=== PATIENT | male | born 1960 | race Caucasian/White ===

== ENCOUNTER 2019-05-23 23:27 | Emergency (ER) | payer MEDICARE, MEDICAID, SELFPAY ==
--- NOTE | ~2019-05-23 | CT_ITS ---
EXAMINATION: CT brain wo con DATE: 05/24/2019 00:30 INDICATION: Head injury. TECHNIQUE: Computed tomography (CT) of the head was performed without intravenous contrast. The mA wa s adjusted according to patient size. Iterative reconstruction technique was employed. The dose-lengt h product was 681.00 mGy-cm. COMPARISON: None FINDINGS: There are scattered areas of low attenuation in the cerebral white matter. Superficial to t he left frontal lobe, there is a 4 mm subdural hematoma versus dural thickening that is hypodense to ryan matter. There is no acute infarct or abnormal intracranial mass lesion. The ventricles are satinder l in size. There is mild mucosal thickening in the paranasal sinuses. The orbits are normal. The mast oid air cells are normal. IMPRESSION: 1. Small subacute subdural hematoma versus dural thickening superficial to left frontal lobe. Dr. Wilman Pimentel discussed this result with Rolando Wilson on 05/24/19 at 12:52 AM. 2. Moderate nonspecific cerebral white matter disease, which likely represents chronic small vessel i schemic disease. Reviewed, dictated and finalized at location A. EL KILN REPAIRER IMPRESSION: 1. Small subacute subdural hematoma versus dural thickening superficial to left frontal lobe. Dr. Noel Pimentel discussed this result with Rolando Wilson on 04/29 11/14 at 12:52 AM. 2. Moderate nonspecific cerebral white matter disease, which likely represents chronic small vessel ischemic disease.
--- NOTE | ~2019-05-23 | XR_ITS ---
EXAMINATION: XR ankle LT min 3V DATE: 05/24/2019 00:28 INDICATION: Left ankle pain, initial encounter TECHNIQUE: Anteroposterior, lateral, mortise, and additional oblique view of the ankle were obtained. COMPARISON: None. FINDINGS: There is an acute, traumatic, closed, oblique, nondisplaced fracture of the medial malleolu s. Soft tissue swelling surrounds the fracture. No additional acute osseous abnormality is identified . Bone alignment is normal. A plantar calcaneal enthesophyte is noted. IMPRESSION: 1. Acute fracture of the medial malleolus. Reviewed, dictated and finalized at location A. GHT ASSOCIATE
--- NOTE | ~2019-05-23 | XR_ITS ---
EXAMINATION: XR foot LT min 3V DATE: 05/24/2019 00:29 INDICATION: Left foot pain TECHNIQUE: Dorsoplantar, lateral, and oblique views of the left foot were obtained. COMPARISON: None. FINDINGS: There is no acute fracture, dislocation, or subluxation of the foot. Bone alignment is norm al. There is ankle soft tissue swelling. IMPRESSION: 1. No foot fracture. Reviewed, dictated and finalized at location A. MBLY LINE WORKER IMPRESSION: 1. No foot fracture.
[2019-05-23 23:30] VITALS: BP 122/71; PULSE 77; RESP 20; TEMP 36.9; O2SAT 98
--- NOTE | 2019-05-23 23:41 | ED.LOWEXIN ---
HPI - Extremity Injury (Lower) General Chief Complaint: Extremity Injury, Lower Stated Complaint: PAIN History of Present Illness HPI Narrative: 59 y.o. male alcoholic with liver cirrhosis who tripped and fell at home onto carpet over concrete floor. He landed on his back hitting the back of his head. He complains of immediate left ankle and foot pain. He denies head pain/LOC/ nausea/vomiting. There is pain with attempted weight bearing. Pt states he has poor balance which impairs his ability to use crutches. He has drank daily for years, today he had #8 beers. Pt. states 2 weeks ago he tripped and fell hitting hid left forehead which subsequently swelled. He does not know if he lost consciousness. Since then he's had daily frontal headaches and tenderness in the left cheek and forehead region. He has also had some blurred vision when both eyes are open, but not in each eye individually. Related Data Home Medications Medication Instructions Recorded Confirmed albuterol sulfate 90 mcg INHALATION PRN PRN 05/24/19 05/24/19 allopurinol 100 mg PO DAILY 05/24/19 05/24/19 amlodipine 10 mg PO DAILY 05/24/19 05/24/19 atenolol 100 mg PO DAILY 05/24/19 05/24/19 brimonidine [Alphagan P] 1 drp OPHTHALMIC (EYE) DAILY 05/24/19 05/24/19 finasteride 5 mg PO DAILY 05/24/19 05/24/19 isosorbide mononitrate 30 mg PO DAILY 05/24/19 05/24/19 nitroglycerin 0.4 mg SUBLINGUAL PRN 05/24/19 05/24/19 Allergies Allergy/AdvReac Type Severity Reaction Status Date / Time bee venom protein (honey bee) AdvReac Anaphylaxis Verified 05/23/19 23:54 Review of Systems Constitutional: Constitutional: Reports body ache(s), Denies fever(s) and Denies headache(s) Eyes: Eyes: Denies blurry vision and Denies diplopia ENT: Denies vertigo and Denies dizziness Cardiovascular: Cardiovascular: Denies chest pain and Denies leg edema Gastrointestinal: Comments: chronic chest congestion, cough productive of large quantities of clear sputum daily for over a year. Genitourinary: Genitourinary: Denies dysuria Musculoskeletal: Musculoskeletal: Reports back pain (chronic, related to ankylosing spondylitis ) Hematologic/Lymphatic: Comments: Since being on Eliquis he bruises easily. [facility] Past Medical History Medical History (Updated 05/24/19 @ 01:39 by Francesco Zelaya MD) Alcohol abuse Ankylosing spondylitis Atrial fibrillation CAD (coronary artery disease) Cirrhosis COPD (chronic obstructive pulmonary disease) Hypertension Surgical History Surgical History Hx of CABG Family History Family History Father Family history of chronic obstructive pulmonary disease, Onset Age: 80 Family history of congestive heart failure Mother Family history of congestive heart failure, Onset Age: 82 Social History Social History (Updated 05/24/19 @ 01:49 by Francesco Zelaya MD) Social History: Lives at home by himself Smoking status: Former smoker Exam Narrative: Exam Narrative: Alert and oriented. Minor slurring of speech. Grimaces with ankle pain when he attempts to bear weight. Const: General: cooperative, no acute distress and alert Nutritional Appearance: other (abdominal distension) Orientation/consciousness: patient oriented x3 Limitations: no limitations HENMT: Head: normal to inspection, no Saenz's sign, no hematomas, no lacerations, no raccoon eyes and no scalp tenderness General nose exam: No nasal discharge present Face and sinus: normal facial exam and other (left frontal and maxillary tenderness. ) Mouth: Yes Normal oral and palatal mucosa present, Yes oropharynx normal and Yes moist mucous membranes Throat: posterior oropharynx normal Eyes: General: appearance normal, both eyes and all related structures (Visual acuity OS = 20/40, OD= 20/30, OU = 20/25) Alignment and Position: alignment normal Eyelids: eyelids normal P
[2019-05-24 00:50] VITALS: BP 131/68; PULSE 74; RESP 18; O2SAT 98
[2019-05-24 01:30] VITALS: BP 122/73; PULSE 74; RESP 18; O2SAT 97
--- NOTE | 2019-05-24 01:42 | PC.NURSE ---
CALL TO [facility] FOR TRANSFER
--- NOTE | 2019-05-24 02:11 | PC.NURSE ---
ERP SPEAKING WITH DR CERVANTES FROM [facility].
[2019-05-24 02:20] VITALS: BP 120/78; PULSE 75; RESP 20; TEMP 37.1; O2SAT 97
--- NOTE | 2019-05-24 02:25 | PC.NURSE ---
[facility] UNAVAILABLE FOR TRANSFER . CALL TO [facility].
--- NOTE | 2019-05-24 02:53 | PC.NURSE ---
PT LOADED TO EMS COT. NOTED WHEEZING. PT STATES I DO THAT ALL THE TIME, DONT WORRY ABOUT IT. PT ALERT AND STABLE AT DEPARTURE FROM FACILITY.
--- NOTE | 2019-05-24 09:10 | PC.NURSE ---
received call from dr diaz, radiology. he stated there was a discrepancy with foot xray. stated there is an acute fracture. call to [facility] er and spoke with er charge nurse MIGUEL Hirsch. she stated xray was repeated and was negative for fracture. explained to her of reported discrepancy . stated she would tell the ER doctor.
== END 2019-05-24 02:55 | disposition short-term general hospital (02) ==
PROVIDERS: Emergency Provider Family Medicine; PCP Internal Medicine
DX: S93.492A Sprain of other ligament of left ankle, initial encounter (principal); W19.XXXA Unspecified fall, initial encounter; F10.10 Alcohol abuse, uncomplicated; I48.91 Unspecified atrial fibrillation; I25.10 Atherosclerotic heart disease of native coronary artery without angina pectoris; J44.9 Chronic obstructive pulmonary disease, unspecified; I10 Essential (primary) hypertension
CPT/HCPCS: 70450; 73610; 73630; 99283; 99285; L4350

== ENCOUNTER 2020-03-03 08:57 | Outpatient (CLI) | payer MEDICARE, MEDICAID, SELFPAY ==
--- NOTE | ~2020-03-03 | US_ITS ---
EXAMINATION: US right upper quadrant EXAM DATE: 03/03/2020 09:26 INDICATION: Cirrhosis. TECHNIQUE: Multiple grayscale and Doppler images of the abdomen right upper quadrant were obtained (b y a technologist who performed the scan) and subsequently reviewed. Comparison is made to prior exami nation from 01/11/2019. FINDINGS: The pancreatic head and body are normal in appearance. The pancreatic tail is not visualized. There is echogenic liver parenchyma, hepatic steatosis. Mild liver surface undulations without jorge nodul arity. There are no focal liver lesions identified. There is no evidence of intrahepatic biliary d uct dilation. Portal venous flow was seen in the hepatopedal, normal direction and has normal Dopple r waveform. No right-sided hydronephrosis. Common bile duct measures 4 mm, which is normal. The gallbladder wall is normal in thickness, with ex pected amount of distention. No sonographic evidence of pericholecystic fluid. There is no cholelit hiases. Technologist performing exam reports patient did not demonstrate sonographic Plasencia's sign. Please note that this sign is less reliable in patients who have received pain medication. IMPRESSION: Hepatic steatosis. Reviewed, dictated and finalized at location G. ER IMPRESSION: Hepatic steatosis.
--- NOTE | ~2020-03-03 | CT_ITS ---
EXAMINATION: CT lung screening EXAM DATE: 03/03/2020 09:34 INDICATION: Personal history of nicotine dependence. TECHNIQUE: Spiral low dose CT of the chest without contrast. Axial, coronal and sagittal images were reviewed. The dose-length product (DLP) for this examination was 125.89 mGy-cm. The exposure was t ailored according to patient size (auto mA exposure control), and iterative reconstruction (ASIR) was used as additional dose reduction technique. There is no prior study for comparison. FINDINGS: Several left upper lobe calcified granulomas. No suspicious pulmonary nodules or opacities . There is mild emphysema and hyperinflation. Tracheobronchial tree is patent. There is no mediast inal, hilar or axillary lymphadenopathy. There are no pleural or pericardial effusions. There is no pneumothorax. Heart normal in size. There are sternotomy wires, and cardiac/coronary surgical changes. Correlate with prior history. There is hepatic steatosis. There is mild thoracic spondylosi s without osteoblastic or osteolytic lesions identified. There are old right mid rib fractures. IMPRESSION: Lung-RADS category 1, negative (<1%chance of malignancy); recommend continued LDCT screen ing in 1 year. > Reviewed, dictated and finalized at location G. E ECONOMIST IMPRESSION: Lung-RADS category 1, negative (<1%chance of malignancy); recommend continued LDCT screening in 1 year. >
== END 2020-03-03 08:58 | disposition home or self-care (01) ==
PROVIDERS: PCP Internal Medicine; Visit Provider Internal Medicine
DX: Z12.2 Encounter for screening for malignant neoplasm of respiratory organs (principal); Z87.891 Personal history of nicotine dependence; K74.60 Unspecified cirrhosis of liver
CPT/HCPCS: 76705; G0297

== ENCOUNTER 2021-01-31 08:48 | Outpatient (RCR) | payer MEDICARE, OTHER, SELFPAY ==
--- NOTE | 2021-01-31 10:12 | PTOPEVAL ---
Thank you for referring Tobias Leslie to [facility].? The patient is scheduled to be seen for therapy? ____x/week for ___ weeks. Please review, sign, date and return this plan of care SHYLA. I agree with and certify that the following plan of care is medically necessary. Referring Physician Date Admitting Provider: Attending Provider: Consuelo Villareal MD Referring Provider: *PT Outpatient Evaluation Start: 01/31/21 08:47 Freq: Status: Active Protocol: Document 01/31/21 08:48 JSCOOTER (Rec: 01/31/21 10:07 MIHIR [id number]) Therapy Assessment Status Assessment Status Assessment Status Evaluation Outpatient Past Medical History Cardiovascular History Hx Atrial Fibrillation Yes Hx Cardiac Arrhythmia Yes Hx Cardiac Catheterization Yes Hx Cardiac Surgery Yes: 3 WAY BYPASS Hx Chest Pain Yes Hx Coronary Artery Bypass Graft Yes Hx Hypercholesterolemia Yes Hx Hypertension Yes Respiratory History Hx Chronic Obstructive Pulmonary Disease Yes (COPD) Gastrointestinal History Hx Cirrhosis Yes: CHRONIC ALCOHOLIC Musculoskeletal History Hx Back Injury Yes Hx Back Pain Yes Hx Degenerative Disk Disease Yes Hx Gout Yes Hx Other Musculoskeletal Disorders Yes: ANKYLOSING SPINDYLITIS Other History Hx Other Medical Conditions Yes: HISTOPLASMOSIS Evaluation Information Problem Diagnosis generalized weakness Onset 01/30/21 Subjective Information patient reports he is coming Query Text:As Reported By Patient/ to therapy to seek evaluation Family for a power wheelchair. he reports he struggles with falls and his legs being unable to support him. patient reports he bangs off alejandra frequently at home. he reports his legs shake really bad when he is up and walking. he reports his breathing is poor as well. he reports he is on no supplemental oxygen at home . he reports he is the process of setting up home care assist for laundry, cleaning, cooking, and assist with other daily activities. he reports he has been dissabled since 2006 for his heart and back issues. he reports he has
--- NOTE | 2021-01-31 10:17 | PCPTNOTE ---
No Care Plan initiated due to patient being discharged today.
== END 2021-01-31 11:02 | disposition home or self-care (01) ==
LOC: CHSPT 08:48
PROVIDERS: PCP Internal Medicine; Visit Provider Internal Medicine
DX: R53.1 Weakness (principal)
CPT/HCPCS: 97162

== ENCOUNTER 2021-02-14 09:39 | Outpatient (CLI) | payer OTHER, SELFPAY ==
--- NOTE | ~2021-02-14 | MR_ITS ---
EXAMINATION: MR thoracic spine wo con DATE: 02/14/2021 11:32 INDICATION: Ankylosing spondylitis of unspecified sites in spine. TECHNIQUE: Magnetic resonance imaging (MRI) of the thoracic spine was performed without intravenous c ontrast. Sagittal localizer T1-weighted FSE of the cervical spine was obtained. Thoracic spine sequen kamila included sagittal T2-weighted FSE, sagittal T1-weighted FSE, sagittal T2-weighted FS FSE, and axi al T2-weighted FSE. COMPARISON: Thoracic spine MRI 04/09/2014, chest CT 03/03/2020 FINDINGS: There is 7 degrees levocurvature of cervicothoracic spine. Vertebral body heights are satinder l. There is mildly decreased disc height at T7-T8. At T3-T4, there is a right central and foraminal z one protrusion. There is multilevel facet joint osteoarthritis, severe on the right at T5-T6 and T10- T11 and on the left at T2-T3, T5-T6, and T7-T8. There is mild right neural foraminal stenosis at T3-T 4 and T9-T10 and mild left neural foraminal stenosis at T2-T3. The spinal cord signal intensity is no rmal. IMPRESSION: 1. Mild thoracic spondylosis, stable from 04/09/2014. Reviewed, dictated and finalized at location A.
--- NOTE | ~2021-02-14 | MR_ITS ---
EXAMINATION: MR cervical spine wo con DATE: 02/14/2021 11:32 INDICATION: Ankylosing spondylitis of unspecified sites in spine. TECHNIQUE: Magnetic resonance imaging (MRI) of the cervical spine was performed without intravenous c ontrast. Sequences included sagittal T2-weighted FSE, sagittal T2-weighted FS FSE, sagittal T1-weight ed FSE, axial MERGE, and axial T2-weighted FSE. COMPARISON: None FINDINGS: There is 7 degrees levocurvature of cervicothoracic spine. Vertebral body heights are satinder l. There is mildly decreased disc height at C5-C6 and C6-C7. The spinal cord signal intensity is norm al. The following disc levels are specifically discussed: C2-C3: The disc does not extend beyond the endplate margin. There is moderate right and mild left unc overtebral joint osteoarthritis. There is severe right and moderate left facet joint osteoarthritis. There is mild right neural foraminal stenosis. There is no central canal stenosis. C3-C4: There is a central extrusion. There is severe right and mild left uncovertebral joint osteoart hritis. There is severe bilateral facet joint osteoarthritis. There is mild bilateral neural foramina l stenosis. There is mild central canal stenosis. C4-C5: The disc is bulging. There is mild bilateral uncovertebral joint osteoarthritis. There is michelle re right and moderate left facet joint osteoarthritis. There is mild bilateral neural foraminal steno sis. There is mild central canal stenosis. C5-C6: The disc is bulging. There is moderate bilateral uncovertebral joint osteoarthritis. There is severe bilateral facet joint osteoarthritis. There is moderate bilateral neural foraminal stenosis. T here is mild central canal stenosis. C6-C7: The disc is bulging. There is mild bilateral uncovertebral joint osteoarthritis. There is michelle re right and moderate left facet joint osteoarthritis. There is mild bilateral neural foraminal steno sis. There is mild central canal stenosis. C7-T1: The disc does not extend beyond the endplate margin. There is no uncovertebral joint osteoarth ritis. There is severe bilateral facet joint osteoarthritis. There is mild bilateral neural foraminal stenosis. There is no central canal stenosis. IMPRESSION: 1. Moderate cervical spondylosis. Reviewed, dictated and finalized at location A.
--- NOTE | ~2021-02-14 | MR_ITS ---
EXAMINATION: MR lumbar spine wo con DATE: 02/14/2021 11:31 INDICATION: Ankylosing spondylitis of unspecified sites in spine. Mid back pain. TECHNIQUE: Magnetic resonance imaging (MRI) of the lumbar spine was performed without intravenous con trast. Sequences included sagittal T2-weighted FSE, sagittal T2-weighted FS FSE, sagittal T1-weighted FSE, and axial T2-weighted FSE. COMPARISON: None FINDINGS: There is a moderate volume of ascites. Bone alignment is normal. Vertebral body heights are normal. There is mildly decreased disc height at L4-L5. The distal spinal cord signal intensity is n ormal. The conus medullaris is at L1. The following disc levels are specifically discussed: L1-L2: The disc does not extend beyond the endplate margin. There is mild bilateral facet joint osteo arthritis. There is no neural foraminal stenosis. There is no central canal stenosis. L2-L3: The disc does not extend beyond the endplate margin. There is severe bilateral facet joint ost eoarthritis. There is no neural foraminal stenosis. There is no central canal stenosis. L3-L4: The disc does not extend beyond the endplate margin. There is severe bilateral facet joint ost eoarthritis. There is no neural foraminal stenosis. There is no central canal stenosis. L4-L5: The disc is mildly bulging. There is severe bilateral facet joint osteoarthritis. There is mil d bilateral neural foraminal stenosis. There is no central canal stenosis. L5-S1: There is a central protrusion with annular fissure. There is severe bilateral facet joint oste oarthritis. There is mild left neural foraminal stenosis. There is mild central canal stenosis. IMPRESSION: 1. Mild lumbar spondylosis. 2. Moderate volume of ascites. Reviewed, dictated and finalized at location A.
== END 2021-02-14 09:40 | disposition home or self-care (01) ==
LOC: CHSIMG 09:44
PROVIDERS: PCP Internal Medicine; Visit Provider Internal Medicine
DX: M45.9 Ankylosing spondylitis of unspecified sites in spine (principal)
CPT/HCPCS: 72141; 72146; 72148

== ENCOUNTER 2021-04-11 14:04 | Outpatient (CLI) | payer OTHER, SELFPAY ==
--- NOTE | ~2021-04-11 | XR_ITS ---
EXAMINATION: XR chest 2V EXAM DATE: 04/11/2021 14:58 INDICATION: Cirrhosis liver w/ ascites, smoker, chest surg '07. TECHNIQUE: Frontal and lateral projections of the chest obtained and reviewed. Comparison is made to prior examination from 10/03/2017. FINDINGS: Sternotomy wires are present without findings to suggest sternal dehiscence. The lungs are clear. There are no pleural effusions. The cardiomediastinal silhouette is within normal limits. There is no pneumothorax suspected. The bones and soft tissues are unremarkable. IMPRESSION: No acute cardiopulmonary findings. Reviewed, dictated and finalized at location B. RISK PARAPROFESSIONAL
--- NOTE | ~2021-04-11 | US_ITS ---
EXAMINATION: US abdomen complete EXAM DATE: 04/11/2021 14:43 INDICATION: Alcoholic cirrhosis of liver with ascites. TECHNIQUE: Multiple grayscale and Doppler images of the complete abdomen were obtained (by a technolo gist who performed the scan) and subsequently reviewed. Comparison is made to prior examination from 03/03/2020. FINDINGS: The abdominal aorta is normal in caliber. Visualized portion IVC is patent. The pancreatic head a nd body are normal in appearance. The pancreatic tail is not visualized. Nodular liver contour consistent with cirrhosis. There is moderate amount of perihepatic ascites. Tor ng the anterior aspect of the peritoneum there is echogenic soft tissue region measuring 2.5 cm in ma ximal thickness by 9.6 cm in diameter with irregular shape surface. Could be omentum. Peritoneal carc inomatosis would be expected to have similar appearing echogenicity elsewhere and that is not demonst rated. There are no focal liver lesions identified. There is no evidence of intrahepatic biliary du ct dilation. Portal venous flow was seen in the hepatopedal, normal direction and has normal Doppler waveform. Common bile duct measures 5 mm, which is normal. The gallbladder wall is normal in thickness, with ex pected amount of distention. No sonographic evidence of pericholecystic fluid. There is no cholelit hiases. Technologist performing exam reports patient did not demonstrate sonographic Plasencia's sign. Please note that this sign is less reliable in patients who have received pain medication. Right kidney: There is normal contour and echogenicity. It measures 9.7 x 9.5 x 3.6 centimeters. T here are no focal renal lesions identified. There is no hydronephrosis. Left kidney: There is normal contour and echogenicity. It measures 9.4 x 5.2 x 5.5 centimeters. Th ere are no focal renal lesions identified. There is no hydronephrosis. The spleen measures 9 centimeters and is morphologically normal. IMPRESSION: 1. Cirrhosis. Moderate amount of ascites. 2. Echogenic nonspecific soft tissue along anterior abdominal wall, could be omentum but other mass not excludable; consider CT scanning for further evaluation. Reviewed, dictated and finalized at location B. D COUNSEL IMPRESSION: 1. Cirrhosis. Moderate amount of ascites. 2. Echogenic nonspecific soft tissue along anterior abdominal wall, could be o mentum but other mass not excludable; consider CT scanning for further evaluati on.
== END 2021-04-11 14:05 | disposition home or self-care (01) ==
LOC: CHSIMG 14:09
PROVIDERS: PCP Internal Medicine; Visit Provider Internal Medicine
DX: K70.31 Alcoholic cirrhosis of liver with ascites (principal)
CPT/HCPCS: 71046; 76700

== ENCOUNTER 2021-04-13 07:09 | Outpatient (CLI) | payer OTHER, SELFPAY ==
--- NOTE | ~2021-04-13 | CT_ITS ---
EXAMINATION: CT abdomen pelvis w con DATE: 04/13/2021 08:21 INDICATION: Peritoneal mass. TECHNIQUE: Computed tomography (CT) of the abdomen and pelvis was performed with 100 mL Omnipaque 350 intravenous contrast. Automated exposure control and iterative reconstruction technique were employe d. The dose-length product was 1020.17 mGy-cm. COMPARISON: Abdomen ultrasound 04/11/2021 FINDINGS: The visualized portions of the lung bases demonstrate mild atelectasis. There is a trace le ft pleural effusion. The heart size is normal. There are coronary artery calcifications. No pericardi al effusion. There is a small sliding hiatal hernia. Paraesophageal varices are noted. The liver demo nstrates a nodular surface contour, consistent with cirrhosis. The gallbladder is normal. Calcificati ons in the spleen are consistent with old granulomatous disease. The pancreas and adrenal glands are normal. There is cortical thinning of the kidneys. There is a 5 mm cyst in left kidney. There is mode rate stenosis of proximal left superficial femoral artery. There is diverticulosis of the colon witho ut evidence of diverticulitis. The appendix is normal. There are no dilated loops of bowel. There is a large volume of ascites. There is edema in the greater omentum. Median sternotomy wires are noted. There is mild thoracolumbar spondylosis. IMPRESSION: 1. Cirrhosis of the liver with portal venous hypertension. 2. Large volume of ascites. No abnormal peritoneal mass. 3. Moderate stenosis of proximal left superficial femoral artery. Reviewed, dictated and finalized at location A. KE PLANNING APPLICATIONS
[2021-04-13 07:36] LABS: Estimated Glomerular Filt Rate > 60
== END 2021-04-13 07:10 | disposition home or self-care (01) ==
LOC: CHSIMG 07:10
PROVIDERS: PCP Internal Medicine; Visit Provider Internal Medicine
DX: R19.09 Other intra-abdominal and pelvic swelling, mass and lump (principal)
CPT/HCPCS: 74177; Q9967

== ENCOUNTER 2021-04-17 09:14 | Outpatient (CLI) | payer OTHER, SELFPAY ==
[2021-04-17 09:27] LABS: Basophils Absolute Auto 0.03 K/mm3 (0.00-0.10); Basophils Percent Auto 0.4 % (0.0-1.0); Eosinophils Absolute Auto 0.02 K/mm3 (0.02-0.50); Eosinophils Percent Auto 0.3 % (1.0-6.0); Hemoglobin 12.6 g/dL (14.0-18.0); Immature Granulocyte Absolute 0.02 K/mm3 (0.00-0.00); Immature Granulocyte Percent A 0.3 % (0.0-0.0); Lymphocytes Absolute Auto 0.99 K/mm3 (1.10-4.50); Mean Corpuscular Hemoglobin 36.3 pg (27.0-31.0); Mean Corpuscular Volume 103.7 fL (78.0-102.0); Mean Platelet Volume 9.5 fl (8.7-11.0); Monocytes Absolute Auto 0.89 K/mm3 (0.10-0.90); Monocytes Percent Auto 11.7 % (2.0-11.0); Neutrophils Absolute Auto 5.6 K/mm3 (1.7-7.2); Neutrophils Percent Auto 74.3 % (50.0-70.0); Platelet Count Result 129 K/mm3 (150-420); Red Blood Count 3.47 M/mm3 (4.70-6.10); Red Cell Distribution Width 14.4 % (11.6-14.4); White Blood Count 7.6 K/mm3 (4.8-10.8)
[2021-04-17 09:45] LABS: INR 1.6; Prothrombin Time 16.7 Seconds (9.50-12.10)
[2021-04-17 10:00] LABS: Alanine Aminotransferase 10 U/L (16-63); Albumin Level 2.2 g/dL (3.4-5.0); Alkaline Phosphatase 59 U/L (46-116); Ammonia 33 umol/L (11-32); Anion Gap 8 mmol/L (8-16); Aspartate Amino Transferase 24 U/L (15-37); Bilirubin,Total 1.8 mg/dL (0.00-1.00); Blood Urea Nitrogen 11 mg/dL (7-18); Calcium 8.2 mg/dL (8.5-10.1); Carbon Dioxide 28 mmol/L (21-32); Chloride 96 mmol/L (98-108); Estimated Glomerular Filt Rate 49; Glucose 111 mg/dL (70-99); Osmolality Calculated 274 mOsm/kg (285-295); Potassium 3.4 mmol/L (3.5-5.1); Sodium 132 mmol/L (136-145); Total Protein 6.8 g/dL (6.4-8.2)
== END 2021-04-17 09:15 | disposition home or self-care (01) ==
LOC: CHSLAB 09:15
PROVIDERS: PCP Internal Medicine; Visit Provider Internal Medicine
DX: K70.31 Alcoholic cirrhosis of liver with ascites (principal)
CPT/HCPCS: 36415; 80053; 82140; 85025; 85610

== ENCOUNTER 2021-08-28 07:42 | Outpatient (CLI) | payer MEDICARE, MEDICAID, SELFPAY ==
--- NOTE | ~2021-08-28 | US_ITS ---
EXAMINATION: US paracentesis abd w/image DATE: 08/28/2021 09:33 INDICATION: Ascites. TECHNIQUE: The procedure and its risks, benefits, and alternatives were discussed with the patient. P otential risks discussed included bleeding and infection. The skin was prepped and draped in sterile fashion. 1% lidocaine was used for local anesthesia. Under ultrasound guidance, a 5 Fr catheter with trochar was advanced into the ascites in the right lower quadrant. Fluid was aspirated. The catheter was removed, and a dressing was applied. There were no immediate complications. FINDINGS: Ultrasound images demonstrate ascites and the catheter within the fluid. IMPRESSION: 1. Successful ultrasound-guided paracentesis yielding 5000 mL of clear, yellow fluid. Reviewed, dictated and finalized at location B.
[2021-08-28 08:12] LABS: INR 1.3; Prothrombin Time 13.3 Seconds (9.50-12.10)
== END 2021-08-28 07:43 | disposition home or self-care (01) ==
LOC: CHSIMG 07:46
PROVIDERS: PCP Internal Medicine; Visit Provider Internal Medicine Gastroenterology
DX: R18.8 Other ascites (principal); K74.60 Unspecified cirrhosis of liver
CPT/HCPCS: 36415; 49083; 85610

== ENCOUNTER 2021-09-21 11:16 | Outpatient (CLI) | payer MEDICARE, MEDICAID, SELFPAY ==
--- NOTE | ~2021-09-21 | XR_ITS ---
XR chest 2V DATE: 09/21/2021 11:44 INDICATION: Cough. Upper respiratory infection. TECHNIQUE: PA and lateral views COMPARISON: 04/11/2021 2 view chest FINDINGS: Status post sternotomy and probable coronary artery bypass graft surgery. Normal heart size . No hilar or mediastinal enlargement. The lungs are clear of infiltrate or consolidation. No pleural effusion or pulmonary vascular congest ion or pneumothorax. Diffuse osteopenia. IMPRESSION: Status post sternotomy No active cardiac pulmonary disease Reviewed, dictated and finalized at location A.
[2021-09-21 12:27] LABS: SARS-CoV-2 RNA PCR Negative (Negative)
== END 2021-09-21 11:17 | disposition home or self-care (01) ==
LOC: CHSLAB 11:19
PROVIDERS: PCP Internal Medicine; Visit Provider Nurse Practitioner Family
DX: J06.9 Acute upper respiratory infection, unspecified (principal); R05.9 Cough, unspecified; J44.9 Chronic obstructive pulmonary disease, unspecified; Z20.822 Contact with and (suspected) exposure to COVID-19
CPT/HCPCS: 71046; C9803; U0003; U0005

== ENCOUNTER 2021-09-21 14:07 | Emergency (ER) | payer MEDICARE, MEDICAID, SELFPAY ==
[2021-09-21] VITALS (24 sets, daily range): BP systolic 115–144; BP diastolic 86–100; PULSE 85; RESP 14–16; O2SAT 83–99
--- NOTE | ~2021-09-21 | CT_ITS ---
EXAMINATION: CT abdomen pelvis wo con DATE: 09/21/2021 15:12 INDICATION: Acute abdominal pain. History of cirrhosis and hernia. TECHNIQUE: Computed tomography (CT) of the abdomen and pelvis was performed without intravenous contr ast. The dose-length product was 329.53 mGy-cm. Automated exposure control and iterative reconstructi on technique were employed. COMPARISON: CT dated 04/13/2021. FINDINGS: Lung bases are unremarkable. Heart size normal. No significant pleural or pericardial effus ion. There is atherosclerosis of the aorta without aneurysm. There is cirrhosis of the liver with mod erate ascites. The spleen, pancreas, adrenal glands and kidneys are unremarkable. Gallbladder is dist ended. There is an umbilical hernia containing small bowel. The bowel outline is difficult to determi ne, although it appears to be dilated within the hernia sac, possibly strangulated. There is fluid in the hernia sac. Colonic diverticulosis there are degenerative changes of the hips and lumbar spine. There is atherosclerosis of the aorta without aneurysm. IMPRESSION: 1. Focally dilated small bowel contained in umbilical hernia sac. Cannot exclude obstruction/strangul ation. 2: Cirrhosis with ascites. Reviewed, dictated and finalized at location A. IMPRESSION: 1. Focally dilated small bowel contained in umbilical hernia sac. Cannot exclud e obstruction/strangulation. 2: Cirrhosis with ascites.
--- NOTE | ~2021-09-21 | US_ITS ---
US scrotum doppler INDICATION: Testicular pain TECHNIQUE: Testicular sonogram utilizing grayscale and color Doppler FINDINGS: The testes are normal in size and appearance. No focal lesions are seen. The right testes measures 2.7 x 2.1 x 1.7 cm centimeters, and the left testis measures 2.7 x 2.7 x 1.5 cm cm. There is normal vascular flow to both testes. The right and left epididymides appear normal. There is no varicocele or hydrocele. IMPRESSION: 1. NORMAL TESTICULAR ULTRASOUND. Reviewed, dictated and finalized at location A.
--- NOTE | 2021-09-21 14:43 | PC.NURSE ---
PT REPORTS PAIN RADIATES INTO TESTICLES, CANNOT GET COMFORTABLE. ERP NOTIFIED, US ORDERED. PT IN US AT THIS TIME.
[2021-09-21] MEDS: ONDANSETRON INJ 4 MG/2 ML VIAL IV PUSH (15:19)
[2021-09-21] MEDS: MORPHINE SULFATE (*CRX) 2 MG/ML INJ IV PUSH ×3 (15:20→18:21)
[2021-09-21] MEDS: PANTOPRAZOLE SODIUM IV 40 MG VIAL IV PUSH (15:20)
[2021-09-21] MEDS: SODIUM CHLORIDE 0.9% IV 500 ML 999 ML IV CONT (15:20)
[2021-09-21 15:21] LABS: Basophils Absolute Auto 0.04 K/mm3 (0.00-0.10); Basophils Percent Auto 0.6 % (0.0-1.0); Eosinophils Absolute Auto 0.01 K/mm3 (0.02-0.50); Eosinophils Percent Auto 0.1 % (1.0-6.0); Hematocrit 31.6 % (40.0-54.0); Hemoglobin 10.5 g/dL (14.0-18.0); Immature Granulocyte Absolute 0.02 K/mm3 (0.00-0.00); Immature Granulocyte Percent A 0.3 % (0.0-0.0); Lymphocytes Absolute Auto 1.41 K/mm3 (1.10-4.50); Mean Corpuscular HGB Conc 33.2 g/dL (32.0-36.0); Mean Corpuscular Hemoglobin 30.7 pg (27.0-31.0); Mean Corpuscular Volume 92.4 fL (78.0-102.0); Mean Platelet Volume 9.3 fl (8.7-11.0); Monocytes Absolute Auto 0.76 K/mm3 (0.10-0.90); Monocytes Percent Auto 10.8 % (2.0-11.0); Neutrophils Absolute Auto 4.8 K/mm3 (1.7-7.2); Neutrophils Percent Auto 68.2 % (50.0-70.0); Platelet Count Result 221 K/mm3 (150-420); Red Blood Count 3.42 M/mm3 (4.70-6.10); Red Cell Distribution Width 15.6 % (11.6-14.4); White Blood Count 7.1 K/mm3 (4.8-10.8)
[2021-09-21 15:48] LABS: Alanine Aminotransferase 10 U/L (16-63); Albumin Level 3.2 g/dL (3.4-5.0); Alkaline Phosphatase 78 U/L (46-116); Anion Gap 8 mmol/L (8-16); Aspartate Amino Transferase 20 U/L (15-37); Bilirubin,Total 0.8 mg/dL (0.00-1.00); Blood Urea Nitrogen 15 mg/dL (7-18); Calcium 9.4 mg/dL (8.5-10.1); Carbon Dioxide 27 mmol/L (21-32); Chloride 97 mmol/L (98-108); Estimated Glomerular Filt Rate 52; Glucose 112 mg/dL (70-99); Lipase 255 U/L (73-393); Osmolality Calculated 275 mOsm/kg (285-295); Potassium 4.1 mmol/L (3.5-5.1); Sodium 132 mmol/L (136-145); Total Protein 8.4 g/dL (6.4-8.2)
[2021-09-21 15:53] LABS: Lactic Acid Reflex 1.3 mmol/L (0.4-2.0)
--- NOTE | 2021-09-21 16:19 | PC.NURSE ---
1177 MACHINE STACKER NADER NOTIFIED AT [facility] FOR NEED OF SURGEON. AWAITING RETURN CALL AT THIS TIME. PT REPORTS PAIN HAS IMPROVED TO 3/10, HOWEVER REMAINS. FAMILY HAS LEFT, HOWEVER ARE TO RETURN. WILL CONTINUE TO MONITOR.
--- NOTE | 2021-09-21 16:26 | ED.ABDPAIN ---
HPI - Abdominal Pain General Chief Complaint: Abdominal Pain Stated Complaint: Abd pain possible hernia Time Seen by Provider: 09/21/21 14:11 Source: patient and RN notes reviewed Mode of arrival: ambulatory Limitations: no limitations History of Present Illness MD elicited complaint: abdominal pain Pertinent past history: other (known umbilical hernia, usually easily reducible) Onset (ago): hour(s) (2) Pain Consistency: constant and colicky Location: periumbilical Severity: moderate Pain scale (0-10): 7 Quality: cramping and aching Radiation: other (left groin to testicle.) Migration to: no migration Exacerbating factors: movement Relieving factors: nothing Related Data Home Medications Medication Instructions Recorded Confirmed albuterol sulfate 90 mcg/actuation 90 mcg inhalation PRN PRN 05/24/19 09/21/21 aerosol inhaler Shortness Of Breath allopurinol 100 mg tablet 100 mg PO DAILY 05/24/19 09/21/21 brimonidine 0.1 % eye drops 1 drp ophthalmic (eye) DAILY 05/24/19 09/21/21 (Alphagan P) finasteride 5 mg tablet 5 mg PO DAILY 05/24/19 09/21/21 nitroglycerin 0.4 mg sublingual 0.4 mg sublingual PRN 05/24/19 09/21/21 tablet albuterol sulfate 90 mcg/actuation 2 puff inhalation PRN PRN Wheezing 09/21/21 09/21/21 aerosol inhaler (Ventolin HFA) fluticasone fur. 100 mcg-umeclid 2 ea inhalation DAILY 09/21/21 09/21/21 62.5 mcg-vilant 25 mcg inhalat.powder (Trelegy Ellipta) lorazepam 1 mg tablet 1 tablet PO PRN PRN ANXIETY 09/21/21 09/21/21 oxycodone 5 mg tablet 1 tablet PO PRN PRN Pain 09/21/21 09/21/21 pantoprazole 40 mg tablet,delayed 1 tablet PO DAILY 09/21/21 09/21/21 release sulfamethoxazole 800 1 tablet PO DAILY 09/21/21 09/21/21 mg-trimethoprim 160 mg tablet Allergies Allergy/AdvReac Type Severity Reaction Status Date / Time bee venom protein (honey bee) AdvReac Anaphylaxis Verified 09/21/21 14:20 Review of Systems Review of Systems: All systems reviewed & are unremarkable except as noted in HPI and below PMFSH Past Medical History Medical History Alcohol abuse Ankylosing spondylitis Arthritis Ascites Asthma Atrial fibrillation CAD (coronary artery disease) Cardiac arrhythmia Cirrhosis COPD (chronic obstructive pulmonary disease) Dyslipidemia Hypertension Tobacco abuse Umbilical hernia with obstruction but no gangrene Surgical History Surgical History History of heart bypass surgery Hx of CABG Family History Family History Father Family history of chronic obstructive pulmonary disease, Onset Age: 80 Family history of congestive heart failure Mother Family history of congestive heart failure, Onset Age: 82 Social History Social History Social History: Lives at home by himself Smoking status: Current every day smoker Tobacco type: cigarettes Second hand tobacco smoke exposure: Yes Alcohol intake: former Substance use: unknown Exam Const: General: ill appearing Nutritional Appearance: thin Orientation/consciousness: patient oriented x3 Other: hearing impairment HENMT: Head: normal to inspection Ears: external ears normal, TM's normal bilaterally and EAC's normal General nose exam: Normal external nose present and Normal nares present Face and sinus: normal facial exam and sinuses nontender Mouth: Yes Normal oral and palatal mucosa present, Yes lip normal and Yes moist mucous membranes Throat: posterior oropharynx normal Eyes: Conjunctivae: conjunctivae normal Pupils: Equal, round and reactive pupils present EOM: EOMs intact bilaterally Neck: Neck: normal visual inspection and no lymphadenopathy Chest: Chest palpation & inspection: normal inspection of the chest Resp: Effort & Inspection: normal respiratory effort A
--- NOTE | 2021-09-21 16:30 | PC.NURSE ---
JESSICA PERALTA PT
--- NOTE | 2021-09-21 16:33 | PC.NURSE ---
PT DOES NOT WANT TO DECIDE ON TRANSFER HOSPITAL UNTIL DAUGHTER ARRIVES, ERP AWARE.
--- NOTE | 2021-09-21 17:31 | PC.NURSE ---
1700 DAUGHTER HAS ARRIVED, DECIDED ON [facility]. AWAITING RETURN CALL AT THIS TIME.
[2021-09-21 17:52] LABS: Add Urine Microscopic? NO; Appearance Urine Clear (Clear); Bilirubin Urine Negative (Negative); Blood Urine Negative (Negative); Color Urine Yellow (Yellow); Glucose Urine UA Negative (Negative); Ketones Urine Negative (Negative); Leukocyte Esterase Ur Negative (Negative); Nitrate Urine Negative (Negative); Protein Urine Negative (Negative); Urobilinogen Urine 0.2 mg/dL (0.2-1.0)
--- NOTE | 2021-09-21 18:12 | PC.NURSE ---
[facility] NOTIFIED FOR NEED OF TRANSFER
== END 2021-09-21 18:37 | disposition short-term general hospital (02) ==
PROVIDERS: Emergency Provider Emergency Medicine; PCP Internal Medicine
DX: K42.0 Umbilical hernia with obstruction, without gangrene (principal); K74.60 Unspecified cirrhosis of liver; J44.9 Chronic obstructive pulmonary disease, unspecified; E78.5 Hyperlipidemia, unspecified; I10 Essential (primary) hypertension; F17.200 Nicotine dependence, unspecified, uncomplicated
CPT/HCPCS: 36415; 71046; 74176; 76870; 80053; 81003; 83605; 83690; 85025; 93976; 96361; 96374; 96375; 96376; 99285; C9113; C9803; J2270; J2405; J7040; U0003; U0005

== ENCOUNTER 2021-11-16 20:01 | Emergency (ER) | payer MEDICARE, MEDICAID, SELFPAY ==
--- NOTE | 2021-11-16 20:20 | ED.ABDPAIN ---
HPI - Abdominal Pain General Chief Complaint: Abdominal Pain Stated Complaint: hernia Source: patient Mode of arrival: ambulatory Limitations: no limitations History of Present Illness MD elicited complaint: abdominal pain Pertinent past history: other (umbilical hernia, cirrhosis) Onset (ago): minute(s) (30) Pain Consistency: constant Location: periumbilical Severity: severe Quality: sharp Radiation: none Migration to: no migration Exacerbating factors: other (palpation) Relieving factors: nothing Associated symptoms: denies other symptoms Related Data Home Medications Medication Instructions Recorded Confirmed albuterol sulfate 90 mcg/actuation 90 mcg inhalation PRN PRN 05/24/19 09/21/21 aerosol inhaler Shortness Of Breath allopurinol 100 mg tablet 100 mg PO DAILY 05/24/19 09/21/21 brimonidine 0.1 % eye drops 1 drp ophthalmic (eye) DAILY 05/24/19 09/21/21 (Alphagan P) finasteride 5 mg tablet 5 mg PO DAILY 05/24/19 09/21/21 nitroglycerin 0.4 mg sublingual 0.4 mg sublingual PRN 05/24/19 09/21/21 tablet albuterol sulfate 90 mcg/actuation 2 puff inhalation PRN PRN Wheezing 09/21/21 09/21/21 aerosol inhaler (Ventolin HFA) fluticasone fur. 100 mcg-umeclid 2 ea inhalation DAILY 09/21/21 09/21/21 62.5 mcg-vilant 25 mcg inhalat.powder (Trelegy Ellipta) lorazepam 1 mg tablet 1 tablet PO PRN PRN ANXIETY 09/21/21 09/21/21 oxycodone 5 mg tablet 1 tablet PO PRN PRN Pain 09/21/21 09/21/21 pantoprazole 40 mg tablet,delayed 1 tablet PO DAILY 09/21/21 09/21/21 release sulfamethoxazole 800 1 tablet PO DAILY 09/21/21 09/21/21 mg-trimethoprim 160 mg tablet Allergies Allergy/AdvReac Type Severity Reaction Status Date / Time bee venom protein (honey bee) AdvReac Anaphylaxis Verified 11/16/21 20:18 Review of Systems Review of Systems: All systems reviewed & are unremarkable except as noted in HPI and below Constitutional: Constitutional: Reports as per HPI and Reports no additional constitutional complaints Eyes: Eyes: Reports as per HPI and Reports no additional eye complaints ENT: Reports system reviewed and no additional complaints, except as documented and Reports as per HPI Cardiovascular: Cardiovascular: Reports as per HPI, Reports no additional cardiovascular complaints and Denies chest pain Respiratory: Respiratory: Reports as per HPI, Reports no additional respiratory complaints and Denies dyspnea Gastrointestinal: Gastrointestinal: Reports as per HPI, Reports no additional gastrointestinal complaints and Reports abdominal pain Comments: has umbilical hernia protruding Genitourinary: Genitourinary: Reports no additional male genitourinary complaints and Reports as per HPI Musculoskeletal: Musculoskeletal: Reports no additional musculoskeletal complaints and Reports as per HPI Integumentary/Breasts: Skin/Breast: Reports system reviewed and no additional complaints, except as docu and Reports as per HPI Neurologic: Reports system reviewed and no additional complaints, except as documented and Reports as per HPI Psychiatric: Psychiatric: Reports no additional psychiatric complaints and Reports as per HPI Endocrine: Endocrine: Reports no additional endocrine complaints and Reports as per HPI Hematologic/Lymphatic: Hematologic/Lymphatic: Reports no additional hematologic/lymphatic complaints and Reports as per HPI Allergic/Immunologic: Allergic/Immunologic: Reports no additional allergic/immunologic complaints and Reports as per HPI [facility] Past Medical History Medical History Alcohol abuse Ankylosing spondylitis Arthritis Ascites Asthma Atrial fibrillation CAD (coronary artery disease) Cardiac arrhythmia Cirrhosis COPD (chronic obstructive pulmonary disease) Dyslipidemia Hypertension Tobacco abuse Umbilical hernia with obstruction but no gangrene Surgical History Surgical History
[2021-11-16 20:21] VITALS: BP 169/111; PULSE 107; RESP 20; TEMP 36.9; O2SAT 98
[2021-11-16 20:32] VITALS: BP 160/94; PULSE 92; RESP 18; O2SAT 98
[2021-11-16 20:44] VITALS: BP 138/94; PULSE 92; RESP 17; TEMP 36.9; O2SAT 99
== END 2021-11-16 20:47 | disposition home or self-care (01) ==
PROVIDERS: Emergency Provider Emergency Medicine; PCP Internal Medicine
DX: K42.9 Umbilical hernia without obstruction or gangrene (principal); I48.91 Unspecified atrial fibrillation; I25.10 Atherosclerotic heart disease of native coronary artery without angina pectoris; J44.9 Chronic obstructive pulmonary disease, unspecified; E78.5 Hyperlipidemia, unspecified; I10 Essential (primary) hypertension; F17.200 Nicotine dependence, unspecified, uncomplicated
CPT/HCPCS: 99281

== ENCOUNTER 2021-11-27 07:07 | Outpatient (CLI) | payer MEDICARE, MEDICAID, SELFPAY ==
--- NOTE | ~2021-11-27 | US_ITS ---
US right upper quadrant INDICATION: Process of the liver PROCEDURE: Realtime right upper abdominal ultrasound. COMPARISON: No prior studies for comparison. FINDINGS: The pancreas is normal without focal mass or pancreatic ductal dilation. There is mildly h eterogeneous liver echotexture without focal mass. There is normal directional flow in the portal ve in. There is gallbladder wall thickening with gallbladder sludge. No definite stones. Common bile duct m easures 3 mm. No sonographic Plasencia's sign. No ascites identified. IMPRESSION: 1: Mildly heterogeneous liver echotexture without focal mass. No ascites. 2: Gallbladder wall thickening with gallbladder sludge. Reviewed, dictated and finalized at location A.
[2021-11-27 07:22] LABS: Hemoglobin 10.7 g/dL (14.0-18.0); Mean Corpuscular HGB Conc 30.6 g/dL (32.0-36.0); Mean Corpuscular Volume 88.4 fL (78.0-102.0); Platelet Count Result 217 K/mm3 (150-420); Red Blood Count 3.96 M/mm3 (4.70-6.10); Red Cell Distribution Width 15.9 % (11.6-14.4); White Blood Count 8.8 K/mm3 (4.8-10.8)
[2021-11-27 07:34] LABS: INR 1.1
[2021-11-27 08:05] LABS: Alanine Aminotransferase 26 U/L (16-63); Albumin Level 3.6 g/dL (3.4-5.0); Alkaline Phosphatase 150 U/L (46-116); Anion Gap 8 mmol/L (8-16); Aspartate Amino Transferase 23 U/L (15-37); Bilirubin,Total 0.3 mg/dL (0.00-1.00); Blood Urea Nitrogen 46 mg/dL (7-18); Calcium 8.9 mg/dL (8.5-10.1); Carbon Dioxide 26 mmol/L (21-32); Chloride 106 mmol/L (98-108); Estimated Glomerular Filt Rate > 60; Glucose 100 mg/dL (70-99); Osmolality Calculated 301 mOsm/kg (285-295); Potassium 4.8 mmol/L (3.5-5.1); Sodium 140 mmol/L (136-145); Total Protein 7.9 g/dL (6.4-8.2)
== END 2021-11-27 07:08 | disposition home or self-care (01) ==
LOC: CHSIMG 07:11
PROVIDERS: PCP Internal Medicine; Visit Provider Internal Medicine Gastroenterology
DX: K74.60 Unspecified cirrhosis of liver (principal); R18.8 Other ascites; I48.91 Unspecified atrial fibrillation
CPT/HCPCS: 36415; 76705; 80053; 85027; 85610

== ENCOUNTER 2021-12-17 14:42 | Outpatient (CLI) | payer MEDICARE, MEDICAID, SELFPAY ==
--- NOTE | 2021-12-17 14:44 | ECG_ITS ---
Measurements Intervals [place] Rate: 88 P: -1 MS: 145 QRS: 79 QRSD: 98 T: 32 QT: 369 QTc: 447 Interpretive Statements SINUS RHYTHM LOW QRS VOLTAGE IN EXTREMITY LEADS BORDERLINE ECG NO PREVIOUS ECG AVAILABLE FOR COMPARISON Electronically Signed On 12-17-2021 16:07:35 CDT by Tyler Verdugo M.D.
== END 2021-12-17 14:43 | disposition home or self-care (01) ==
LOC: CHSCARD 14:44
PROVIDERS: PCP Internal Medicine; Visit Provider Internal Medicine Cardiovascular Disease
DX: I48.91 Unspecified atrial fibrillation (principal)
CPT/HCPCS: 93005

== ENCOUNTER 2021-12-24 11:20 | Outpatient (CLI) | payer MEDICARE, MEDICAID, SELFPAY ==
--- NOTE | 2021-12-24 11:27 | EST_ITS ---
Patient Info Name: Tobias Leslie Age: 61 years : 1960 Gender: Male Ht: 68 in Wt: 157 lbs BSA: 1.85 m2 Exam Date: 12/24/2021 1:01 PM Exam Location: [facility] Patient Status: Outpatient Admit Date: 12/24/2021 Staff Ordering Physician: Walt Briones DO Attending Provider: Walt Briones DO Exam Type: CA stress ruby w NM Summary 1. 1. Negative lexiscan stress test for ischemic ST changes by ECG criteria. 2. 2. Stable hemodynamics throughout the test. 3. 3. Nuclear scan to follow and will be reported separately. Pleae correlate with it. 4. 4. Patient informed of the above results. Protocol: LEXISCAN Stress ECG Details Stage: REST Duration (min): 1 min : 7 sec HR (bpm): 91 SBP (mmHg): 158 DBP (mmHg): 104 Stage: REST Duration (min): 4 min : 23 sec HR (bpm): 79 SBP (mmHg): 158 DBP (mmHg): 104 Stage: STAGE 1 Duration (min): 0 min : 14 sec HR (bpm): 85 SBP (mmHg): 158 DBP (mmHg): 104 Stage: RECOVERY Duration (min): 0 min : 45 sec HR (bpm): 126 SBP (mmHg): 158 DBP (mmHg): 104 Stage: RECOVERY Duration (min): 1 min : 45 sec HR (bpm): 131 SBP (mmHg): 156 DBP (mmHg): 97 Stage: RECOVERY Duration (min): 2 min : 45 sec HR (bpm): 127 SBP (mmHg): 157 DBP (mmHg): 99 Stage: RECOVERY Duration (min): 3 min : 45 sec HR (bpm): 121 SBP (mmHg): 138 DBP (mmHg): 95 Stage: RECOVERY Duration (min): 4 min : 45 sec HR (bpm): 113 SBP (mmHg): 159 DBP (mmHg): 91 Stage: RECOVERY Duration (min): 5 min : 45 sec HR (bpm): 114 SBP (mmHg): 151 DBP (mmHg): 99 Stage: RECOVERY Duration (min): 6 min : 45 sec HR (bpm): 115 SBP (mmHg): 150 DBP (mmHg): 99 Stage: RECOVERY Duration (min): 7 min : 5 sec HR (bpm): 115 SBP (mmHg): 150 DBP (mmHg): 99 Rest HR: 79 bpm Peak HR: 131 bpm Rest Sys BP: 158 mmHg Peak Sys BP: 159 mmHg Max Pred HR: 158 bpm % Max Pred HR: 83 % Target HR: 134 bpm Max RPP: 20,829 bpm*mmHg Termination Reason: Completed protocol Cardiac Symptoms: Shortness of breath, Headache Total Time: 0 min : 14 sec Rest Altman BP: 104 mmHg Peak Altman BP: 91 mmHg Total Dose: 0.4 mg Resting ECG Sinus rhythm. Stress ECG No ST changes. Arrhythmias None. Report Signatures
--- NOTE | 2021-12-24 16:34 | WPDCARIOSTRE ---
Nuclear Stress Test INDICATIONS Indications: Chest pain PROCEDURE Procedure Performed: Myocardial Perf Spect-Multi Procedure: Patient underwent a lexiscan stress test and immediately was injected with 33 mCi of cardiolyte. Multiple tomographic images were obtained. These are of good quality. There is no evidence of decrease perfusion with stress imaging. A separate resting images were obtained after patient was injected with 10.8 mCi of cardiolyte. Multiple tomographic images were obtained. These are of good quality. There is no evidence of decrease perfusion with rest imaging. CONCLUSION Conclusion: 1. Normal myocardial perfusion imaging demonstrating no perfusion defects with stress or rest imaging. 2. No evidence of reversible ischemia. 3. Left ventriculogram demonstrates normal measured ejection fraction of 56% with no wall motion abnormalities. 4. TID score 1.11 is not elevated.
== END 2021-12-24 11:21 | disposition home or self-care (01) ==
LOC: CHSCARD 11:22
PROVIDERS: PCP Internal Medicine; Visit Provider Internal Medicine Cardiovascular Disease
DX: I25.10 Atherosclerotic heart disease of native coronary artery without angina pectoris (principal)
CPT/HCPCS: 78452; 93017; A9502; J2785

== ENCOUNTER 2021-12-28 13:23 | Outpatient (CLI) | payer MEDICARE, MEDICAID, SELFPAY ==
--- NOTE | 2021-12-28 13:30 | ECHO_ITS ---
Patient Info Name: Tobias Leslie Age: 61 years : 1960 Gender: Male Ht: 68 in Wt: 159 lbs BSA: 1.87 m2 HR: 70 bpm BP: 157 / 89 mmHg Heart Rhythm: Sinus Rhythm Technical Quality: Fair Exam Date: 12/28/2021 1:16 PM Exam Location: [facility] [place] Patient Status: Outpatient Admit Date: 12/28/2021 Staff Ordering Physician: Walt Briones DO Wrap Yarn Sorter: Kathie Lara RDCS Attending Provider: Walt Briones DO Referring Physician: Anselmo JOHNSON; Exam Type: CA echo doppler color flow Study Info Indications I25.10 - Atherosclerotic heart disease of nikolai coronary artery without angina pectoris Complete two-dimensional, color flow and Doppler transthoracic echocardiogram is performed. Summary 1. Complete two-dimensional, color flow and Doppler transthoracic echocardiogram is performed. 2. Left ventricular chamber dimension is normal. 3. Ventricular septum is sigmoid shaped. No LVOT obstruction. 4. Left ventricular systolic function is normal, estimated at 60-65%. 5. The left ventricular diastolic function is grade I diastolic dysfunction. 6. E/e' 6 is not elevated. 7. Right ventricular systolic function is mildly reduced and with abnormal TAPE 1.6 cm. 8. Left atrial chamber dimension is mildly enlarged. 9. The mitral valve has mildly calcified annulus. 10. There is mild mitral valve regurgitation. 11. There is mild tricuspid valve regurgitation. 12. No pulmonary hypertension, estimated pulmonary arterial systolic pressure is 33 mmHg. Left Ventricle E/e' 6 is not elevated. Ventricular septum is sigmoid shaped. No LVOT obstruction. Left ventricular chamber dimension is normal. Left ventricular systolic function is normal, estimated at 60-65%. The left ventricular diastolic function is grade I diastolic dysfunction. Right Ventricle Right ventricular systolic function is mildly reduced and with abnormal TAPE 1.6 cm. Right ventricular chamber dimension is normal. Left Atria Left atrial chamber dimension is mildly enlarged. Right Atria Right atrial chamber dimension is normal. Aortic Valve The aortic valve is trileaflet. There is no aortic valve stenosis. There is no aortic valve regurgitation. Pulmonic Valve There is no pulmonic regurgitation. Mitral Valve The mitral valve has mildly calcified annulus. There is no mitral valve stenosis. There is mild mitral valve regurgitation. Tricuspid Valve There is mild tricuspid valve regurgitation. No pulmonary hypertension, estimated pulmonary arterial systolic pressure is 33 mmHg. Pericardium/Pleural There is no pericardial effusion. Inferior Vena Cava Normal inferior vena cava with >50% collapse upon inspiration consistent with normal right atrial pressure, 5 mmHg. Aorta The aortic root size at the sinus of Valsalva is normal. Left Ventricular Outflow Tract Name Value Normal LVOT 2D LVOT Diameter 2.1 cm LVOT Doppler LVOT Peak Velocity 118 cm/s LVOT Peak Gradient 6 mmHg LVOT Mean Gradient 3 mmHg LVOT VTI 23 cm
== END 2021-12-28 13:24 | disposition home or self-care (01) ==
LOC: CHSIMG 13:25
PROVIDERS: PCP Internal Medicine; Visit Provider Internal Medicine Cardiovascular Disease
DX: I25.10 Atherosclerotic heart disease of native coronary artery without angina pectoris (principal)
CPT/HCPCS: 93306

== ENCOUNTER 2022-01-16 17:39 | Emergency (ER) | payer MEDICARE, MEDICAID, SELFPAY ==
--- NOTE | ~2022-01-16 | CT_ITS ---
EXAMINATION: CT abdomen pelvis wo con DATE: 01/16/2022 18:46 INDICATION: abdominal pain TECHNIQUE: Computed tomography (CT) of the abdomen and pelvis was performed without intravenous contr ast. Automated exposure control and iterative reconstruction technique were employed. The dose-length product was 437.81 mGy-cm. COMPARISON: 09/21/2021. FINDINGS: Lower thorax: Mediastinal vascular clips. Dependent atelectasis. Liver: Mild hepatomegaly. Nodular liver border as can be seen with cirrhosis. Biliary/Gallbladder: Distended gallbladder, unchanged, no stone or inflammatory change. No bile duct dilation. Pancreas: No mass or duct dilation. Spleen: Normal. Adrenals:No mass. Kidneys: No mass, stone, or hydronephrosis. Mild perinephric stranding. GI tract: No small or large bowel dilation. Normal appendix. Diverticulosis without diverticulitis. Mesentery/Peritoneum: No ascites, mass, or free air. Retroperitoneum: No mass. Atherosclerotic abdominal aortic and/or arterial calcifications. Pelvis: Bladder distention and wall thickening, likely secondary to outlet compromise. Soft Tissues: Small fat-containing uncomplicated umbilical hernia. Bones: No acute osseous finding. IMPRESSION: No acute abdominopelvic process detected. Reviewed, dictated and finalized at location K.
[2022-01-16 17:43] VITALS: BP 180/102; PULSE 20; RESP 20; TEMP 36.6; O2SAT 97
[2022-01-16 17:48] VITALS: BP 180/102; PULSE 88; RESP 20; TEMP 36.6; O2SAT 97
[2022-01-16 18:14] LABS: Add Urine Microscopic? NO; Appearance Urine Clear (Clear); Bilirubin Urine Negative (Negative); Blood Urine Negative (Negative); Color Urine Light Yellow (Yellow); Glucose Urine UA Negative (Negative); Ketones Urine Negative (Negative); Leukocyte Esterase Ur Negative LEU/UL (Negative); Nitrate Urine Negative (Negative); Protein Urine Negative (Negative); Urobilinogen Urine 0.2 mg/dL (0.2-1.0)
[2022-01-16 18:14] LABS: Basophils Absolute Auto 0.06 K/mm3 (0.00-0.10); Basophils Percent Auto 0.6 % (0.0-1.0); Eosinophils Absolute Auto 0.01 K/mm3 (0.02-0.50); Eosinophils Percent Auto 0.1 % (1.0-6.0); Hematocrit 37.1 % (40.0-54.0); Hemoglobin 11.6 g/dL (14.0-18.0); Immature Granulocyte Absolute 0.03 K/mm3 (0.00-0.00); Immature Granulocyte Percent A 0.3 % (0.0-0.0); Lymphocytes Percent Auto 11.3 % (18.0-42.0); Mean Corpuscular HGB Conc 31.3 g/dL (32.0-36.0); Mean Corpuscular Hemoglobin 26.2 pg (27.0-31.0); Mean Corpuscular Volume 83.7 fL (78.0-102.0); Mean Platelet Volume 8.8 fl (8.7-11.0); Monocytes Absolute Auto 0.78 K/mm3 (0.10-0.90); Monocytes Percent Auto 7.3 % (2.0-11.0); Neutrophils Absolute Auto 8.6 K/mm3 (1.7-7.2); Neutrophils Percent Auto 80.4 % (50.0-70.0); Platelet Count Result 206 K/mm3 (150-420); Red Blood Count 4.43 M/mm3 (4.70-6.10); Red Cell Distribution Width 20.4 % (11.6-14.4); White Blood Count 10.7 K/mm3 (4.8-10.8)
[2022-01-16] MEDS: SODIUM CHLORIDE 0.9% IV 500 ML 999 ML IV CONT (18:15)
[2022-01-16] MEDS: ONDANSETRON INJ 4 MG/2 ML VIAL IV PUSH (18:15)
[2022-01-16 18:29] LABS: Alanine Aminotransferase 18 U/L (16-63); Albumin Level 3.6 g/dL (3.4-5.0); Alkaline Phosphatase 111 U/L (46-116); Anion Gap 9 mmol/L (8-16); Aspartate Amino Transferase 25 U/L (15-37); Bilirubin,Total 0.5 mg/dL (0.00-1.00); Blood Urea Nitrogen 19 mg/dL (7-18); Calcium 8.8 mg/dL (8.5-10.1); Carbon Dioxide 27 mmol/L (21-32); Chloride 96 mmol/L (98-108); Estimated CRCL calculation 55 ml/min; Estimated Glomerular Filt Rate > 60; Glucose 112 mg/dL (70-99); Lipase 131 U/L (73-393); Osmolality Calculated 277 mOsm/kg (285-295); Potassium 3.8 mmol/L (3.5-5.1); Sodium 132 mmol/L (136-145); Total Protein 8.1 g/dL (6.4-8.2)
--- NOTE | 2022-01-16 19:00 | PC.NURSE ---
report to winsome mijares
--- NOTE | 2022-01-16 19:36 | ED.ABDPAIN ---
HPI - Abdominal Pain General Chief Complaint: Abdominal Pain Stated Complaint: stomach pains Time Seen by Provider: 01/16/22 17:41 Source: patient and RN notes reviewed Mode of arrival: ambulatory Limitations: no limitations History of Present Illness MD elicited complaint: abdominal pain Pertinent past history: other (umbilical hernia, easily reduced.) Onset (ago): day(s) (1) Pain Consistency: constant Location: diffuse and periumbilical Severity: mild Pain scale (0-10): 3 Quality: cramping Radiation: none Migration to: no migration Exacerbating factors: nothing Relieving factors: nothing Associated symptoms: nausea Related Data Home Medications Medication Instructions Recorded Confirmed albuterol sulfate 90 mcg/actuation 90 mcg inhalation PRN PRN 05/24/19 01/16/22 aerosol inhaler Shortness Of Breath allopurinol 100 mg tablet 100 mg PO DAILY 05/24/19 01/16/22 brimonidine 0.1 % eye drops 1 drp ophthalmic (eye) DAILY 05/24/19 01/16/22 (Alphagan P) finasteride 5 mg tablet 5 mg PO DAILY 05/24/19 01/16/22 nitroglycerin 0.4 mg sublingual 0.4 mg sublingual PRN 05/24/19 01/16/22 tablet albuterol sulfate 90 mcg/actuation 2 puff inhalation PRN PRN Wheezing 09/21/21 01/16/22 aerosol inhaler (Ventolin HFA) fluticasone fur. 100 mcg-umeclid 2 ea inhalation DAILY 09/21/21 01/16/22 62.5 mcg-vilant 25 mcg inhalat.powder (Trelegy Ellipta) lorazepam 1 mg tablet 1 tablet PO PRN PRN ANXIETY 09/21/21 01/16/22 oxycodone 5 mg tablet 1 tablet PO PRN PRN Pain 09/21/21 01/16/22 pantoprazole 40 mg tablet,delayed 1 tablet PO DAILY 09/21/21 01/16/22 release atenolol 25 mg tablet 12.5 mg PO DAILY 12/17/21 01/16/22 cyclobenzaprine 5 mg tablet 5 mg PO TID PRN Back Pain 12/17/21 01/16/22 Allergies Allergy/AdvReac Type Severity Reaction Status Date / Time bee venom protein (honey bee) AdvReac Anaphylaxis Verified 01/15/22 13:45 Review of Systems Review of Systems: All systems reviewed & are unremarkable except as noted in HPI and below Constitutional: Constitutional: Reports no additional constitutional complaints Eyes: Eyes: Reports no additional eye complaints ENT: Reports system reviewed and no additional complaints, except as documented Cardiovascular: Cardiovascular: Reports no additional cardiovascular complaints Respiratory: Respiratory: Reports no additional respiratory complaints Gastrointestinal: Gastrointestinal: Reports abdominal pain Musculoskeletal: Musculoskeletal: Reports no additional musculoskeletal complaints Integumentary/Breasts: Skin/Breast: Reports system reviewed and no additional complaints, except as docu Neurologic: Reports system reviewed and no additional complaints, except as documented Psychiatric: Psychiatric: Reports no additional psychiatric complaints Endocrine: Endocrine: Reports no additional endocrine complaints Hematologic/Lymphatic: Hematologic/Lymphatic: Reports no additional hematologic/lymphatic complaints Allergic/Immunologic: Allergic/Immunologic: Reports no additional allergic/immunologic complaints [facility] Past Medical History Medical History Abdominal pain in male Alcohol abuse Ankylosing spondylitis Arthritis Ascites Asthma Atrial fibrillation CAD (coronary artery disease) Cardiac arrhythmia Cirrhosis COPD (chronic obstructive pulmonary disease) Dyslipidemia Hypertension Tobacco abuse Umbilical hernia with obstruction but no gangrene Surgical History Surgical History History of heart bypass surgery Hx of CABG Family History Family History Father Family history of chronic obstructive pulmonary disease, Onset Age: 80 Family history of congestive heart failure Mother Family history of congestive heart failure, Onset Age: 82 Social History Social History (Reviewed
[2022-01-16] MEDS: ACETAMINOPHEN 325 MG TABLET 650 MG PO (20:21)
[2022-01-16 20:42] VITALS: BP 161/100; PULSE 80; RESP 17; TEMP 36.7; O2SAT 96
== END 2022-01-16 20:45 | disposition home or self-care (01) ==
PROVIDERS: Emergency Provider Emergency Medicine; PCP Internal Medicine
DX: R10.9 Unspecified abdominal pain (principal); Z87.891 Personal history of nicotine dependence
CPT/HCPCS: 36415; 74176; 80053; 81003; 83605; 83690; 85025; 96361; 96374; 99284; A9270; J2405; J7040

== ENCOUNTER 2022-05-11 14:41 | Outpatient (CLI) | payer MEDICARE, SELFPAY ==
[2022-05-11 16:02] LABS: SARS-CoV-2 RNA PCR Negative (Negative)
== END 2022-05-11 14:42 | disposition home or self-care (01) ==
PROVIDERS: PCP Internal Medicine
DX: I77.79 Dissection of other specified artery (principal); Z20.822 Contact with and (suspected) exposure to COVID-19
CPT/HCPCS: U0003; U0005

== ENCOUNTER 2022-09-03 19:53 | Outpatient (CLI) | payer MEDICARE, MEDICAID, SELFPAY ==
--- NOTE | 2022-09-19 15:27 | WPDSLEEPSTUD ---
Sleep Study Date of Study: 09/03/22 Ordering Provider: Walt Briones DO Interpreting Physician: Valorie Fields MD Sleep Study Type: Polysomnogram Height: 1.73 m Weight: 89.811 kg Body Mass Index: 30.1 Neck Circumference (inches): 17 [place]: 8 Reason for Sleep Study Loud snoring, cardiac dysrhythmias Sleep History Tobias Leslie is a 62-year-old man who was recommended to have a sleep study because he has dysrhythmias. He occasionally awakens from sleep feeling short of breath. He occasionally awakens at night with heartburn, belching or coughing. He always snores and it is always loud enough that others complain. He rarely has difficulty sleeping with a cold. He does not wake up gasping for breath at night. He occasionally has breathing problems at night observed by others. He occasionally sweats excessively at night and notices his heart pounding or beating irregularly at night. Occasionally falls asleep during the day. He does not fall asleep involuntarily or while driving. He does not have loss of muscle tone with strong emotion. He does not have daytime difficulties due to excessive sleepiness. Occasionally feels paralyzed on waking or falling asleep. He frequently has vivid dreamlike scenes on waking or falling asleep. He does not feel afraid to go to sleep. He occasionally has nightmares. He occasionally remembers his dreams. He does not have racing thoughts. He rarely feels sad or depressed. He has anxiety. He frequently has muscular tension and frequently notices parts of his body jerking. Occasionally kicks at night. He always has crawling aching feelings in his legs. He frequently has leg pain during the night. He does not have morning jaw pain. He does not grind his teeth during sleep. He constantly is bothered by pain during the day and constantly awakened by pain at night. He constantly wakes up feeling stiff in the morning with sore achy muscles and pain in the neck and spine. He has fatigue, memory problems, concentration difficulties and insomnia. He takes antacids regularly. Normal bedtime is Between 9:00 p.m. and 11:00 p.m.. Takes approximately 30 minutes fall asleep but sometimes it may take as long as 2 hours. Typically wakes between 2 and 4 times at night. During this time he may watch television. He returns to sleep within 30 minutes. He wakes in the morning between 3:00 a.m. and 6:00 a.m.. His weekend schedule is the same. He estimates getting between 3 and 6 hours of sleep at night. He takes naps in the afternoon or evening. A short nap lasting 10 or 15 minutes sometimes his refreshing. He feels better in the morning compared to other times of day. Habits: Tobacco a pack per day. No caffeine, alcohol or recreational substances. [facility] Past Medical History Medical History Abdominal pain in male Alcohol abuse Ankylosing spondylitis Arthritis Ascites Asthma Atrial fibrillation CAD (coronary artery disease) Cardiac arrhythmia Cirrhosis COPD (chronic obstructive pulmonary disease) Dyslipidemia Hypertension Portal hypertensive gastropathy Tobacco abuse Umbilical hernia with obstruction but no gangrene Surgical History Surgical History History of heart bypass surgery Hx of CABG Family History Family History Father Family history of chronic obstructive pulmonary disease, Onset Age: 80 Family history of congestive heart failure Mother Family history of congestive heart failure, Onset Age: 82 Social History Social History Social History: Lives at home by himself Smoking status: Former smoker Tobacco type: cigarettes Second hand tobacco smoke exposure: Yes Alcohol intake: former Substance use: unknown Living arrangements: [facility]
[2022-09-19 19:01] VITALS: BMI 30.1
== END 2022-09-04 06:54 | disposition home or self-care (01) ==
PROVIDERS: PCP Internal Medicine; Visit Provider Internal Medicine Cardiovascular Disease
DX: G47.61 Periodic limb movement disorder (principal); G47.33 Obstructive sleep apnea (adult) (pediatric); G47.10 Hypersomnia, unspecified
CPT/HCPCS: 95810

== ENCOUNTER 2022-09-04 07:18 | Outpatient (CLI) | payer MEDICARE, MEDICAID, SELFPAY ==
--- NOTE | 2022-09-04 07:23 | ECG_ITS ---
Measurements Intervals [place] Rate: 68 P: 62 OR: 159 QRS: 24 QRSD: 90 T: 40 QT: 377 QTc: 403 Interpretive Statements SINUS RHYTHM BASELINE ARTIFACT- II, III, AVF, V1 NORMAL ECG COMPARED TO ECG 12/17/2021 14:58:51 NO SIGNIFICANT CHANGES Electronically Signed On 09-04-2022 7:49:45 CDT by Walt Briones D.O.
== END 2022-09-04 07:19 | disposition home or self-care (01) ==
LOC: CHSCARD 07:20
PROVIDERS: PCP Internal Medicine; Visit Provider Internal Medicine Cardiovascular Disease
DX: I48.91 Unspecified atrial fibrillation (principal)
CPT/HCPCS: 93005; 95810

== ENCOUNTER 2022-10-11 10:50 | Outpatient (CLI) | payer MEDICARE, MEDICAID, SELFPAY ==
--- NOTE | ~2022-10-11 | CT_ITS ---
EXAMINATION: CT lung screening DATE: 10/11/2022 11:10 INDICATION: Personal history of tobacco dependence. TECHNIQUE: Computed tomography (CT) of the chest was performed without intravenous contrast. The dose -length product was 180.75 mGy-cm. Automated exposure control and iterative reconstruction technique were employed. COMPARISON: CT dated 03/03/2020 FINDINGS: Heart size normal. Status post median sternotomy for CABG. Mild atherosclerosis. No signifi cant pleural or pericardial effusion. The upper abdomen is unremarkable. No thoracic adenopathy. No e ndobronchial lesions. There is right lower lobe atelectasis.. There are small calcified granulomas of the left upper lobe. There is a 2 mm left upper lobe nodule, coronal image 125. There is a small 2 m m left fissural nodule, coronal image 204. No pneumothorax. No endobronchial lesions. Mild thoracic s pondylosis. No acute osseous abnormality. IMPRESSION: 1. Lung-RADS category 2: Benign appearance or behavior. Continue annual screening with noncontrast lo w-dose chest CT in 12 months. Reviewed, dictated and finalized at location [] IMPRESSION: 1. Lung-RADS category 2: Benign appearance or behavior. Continue annual screeni ng with noncontrast low-dose chest CT in 12 months.
== END 2022-10-11 10:51 | disposition home or self-care (01) ==
LOC: CHSIMG 10:52
PROVIDERS: PCP Internal Medicine; Visit Provider Physician Assistant
DX: Z12.2 Encounter for screening for malignant neoplasm of respiratory organs (principal); Z87.891 Personal history of nicotine dependence
CPT/HCPCS: 71271

== ENCOUNTER 2022-10-16 20:01 | Outpatient (CLI) | payer MEDICARE, MEDICAID, SELFPAY ==
--- NOTE | 2022-10-24 12:24 | WPDSLEEPSTUD ---
Sleep Study Date of Study: 10/16/22 Ordering Provider: Walt Briones DO Interpreting Physician: Valorie Fields MD Sleep Study Type: BiPAP Titration Height: 1.73 m Weight: 90.718 kg Body Mass Index: 30.4 Neck Circumference (inches): 18.5 [place]: 10 Reason for Sleep Study * Mild obstructive sleep apnea on a basic sleep study September 03, 2022 returns now for CPAP titration Sleep History Tobias Leslie is a 62-year-old man who was initially sleep tested due to dysrhythmias.? His basic sleep study 09/03/2022 showed mild KUSHAL with AHI 6.5 with profound desaturation to 77% and 81% the night spent below 88%, 375 minutes. He also had periodic limb movement disorder, 135 limb movements per hour which disrupted his sleep. His PLM arousal index was 32.1.? He gives a history of constant crawling aching feelings in his legs and frequent leg pain at night.? He occasionally awakens from sleep feeling short of breath.? He occasionally awakens at night with heartburn, belching or coughing.? He always snores and it is always loud enough that others complain.? He rarely has difficulty sleeping with a cold.? He does not wake up gasping for breath at night.? He occasionally has breathing problems at night observed by others.? He occasionally sweats excessively at night and notices his heart pounding or beating irregularly at night.? Occasionally falls asleep during the day.? He does not fall asleep involuntarily or while driving.? He does not have loss of muscle tone with strong emotion.? He does not have daytime difficulties due to excessive sleepiness.? Occasionally feels paralyzed on waking or falling asleep.? He frequently has vivid dreamlike scenes on waking or falling asleep.? He does not feel afraid to go to sleep.? He occasionally has nightmares.? He occasionally remembers his dreams. ? He does not have racing thoughts.? He rarely feels sad or depressed.? He has anxiety.? He frequently has muscular tension and frequently notices parts of his body jerking.? Occasionally kicks at night.? He always has crawling aching feelings in his legs.? He frequently has leg pain during the night.? He does not have morning jaw pain.? He does not grind his teeth during sleep.? He constantly is bothered by pain during the day and constantly awakened by pain at night.? He constantly wakes up feeling stiff in the morning with sore achy muscles and pain in the neck and spine.? He has fatigue, memory problems, concentration difficulties and insomnia.? He takes antacids regularly. Normal bedtime is between 9:00 p.m. and 11:00 p.m..?He is able to fall asleep within 30 minutes fall asleep but sometimes it may take as long as 2 hours.? He typically wakes between 2 and 4 times at night.? During these awakenings, he may watch television.? He generally is able to return to sleep within 30 minutes.? He wakes in the morning between 3:00 a.m. and 6:00 a.m..? His weekend schedule is the same.? He estimates getting between 3 and 6 hours of sleep at night. ? He takes naps in the afternoon or evening.? A short nap lasting 10 or 15 minutes sometimes is refreshing.? He feels better in the morning compared to other times of day. Habits:? ? Tobacco a pack per day.? No caffeine, alcohol or recreational substances. [facility] Past Medical History Medical History Abdominal pain in male Alcohol abuse Ankylosing spondylitis Arthritis Ascites Asthma Atrial fibrillation CAD (coronary artery disease) Cardiac arrhythmia Cirrhosis COPD (chronic obstructive pulmonary disease) Dyslipidemia Hypertension Portal hypertensive gastropathy Tobacco abuse Umbilical hernia with obstruction but no gangrene Surgical History Surgical History History of heart bypass surgery Hx of CABG Family History Family History Father Family history of chronic obstructive pulm
[2022-10-27 17:10] VITALS: BMI 30.4
== END 2022-10-17 08:00 | disposition home or self-care (01) ==
PROVIDERS: PCP Internal Medicine; Visit Provider Internal Medicine Cardiovascular Disease
DX: G47.33 Obstructive sleep apnea (adult) (pediatric) (principal); G47.10 Hypersomnia, unspecified
CPT/HCPCS: 95811

== ENCOUNTER 2022-10-28 12:49 | Outpatient (CLI) | payer MEDICARE, SELFPAY ==
[2022-10-28 13:18] LABS: Basophils Absolute Auto 0.06 K/mm3 (0.00-0.10); Basophils Percent Auto 0.8 % (0.0-1.0); Eosinophils Absolute Auto 0.43 K/mm3 (0.02-0.50); Eosinophils Percent Auto 6.1 % (1.0-6.0); Immature Granulocyte Absolute 0.03 K/mm3 (0.00-0.00); Immature Granulocyte Percent A 0.4 % (0.0-0.0); Lymphocytes Absolute Auto 1.75 K/mm3 (1.10-4.50); Lymphocytes Percent Auto 24.7 % (18.0-42.0); Mean Corpuscular HGB Conc 32.5 g/dL (32.0-36.0); Mean Corpuscular Volume 89.3 fL (78.0-102.0); Mean Platelet Volume 9.3 fl (8.7-11.0); Monocytes Absolute Auto 0.98 K/mm3 (0.10-0.90); Monocytes Percent Auto 13.8 % (2.0-11.0); Neutrophils Absolute Auto 3.8 K/mm3 (1.7-7.2); Neutrophils Percent Auto 54.2 % (50.0-70.0); Platelet Count Result 191 K/mm3 (150-420); Red Blood Count 4.48 M/mm3 (4.70-6.10); White Blood Count 7.1 K/mm3 (4.8-10.8)
[2022-10-28 13:32] LABS: Appearance Urine Clear (Clear); Bilirubin Urine Negative (Negative); Blood Urine Negative (Negative); Color Urine Light Yellow (Yellow); Glucose Urine UA Negative (Negative); Ketones Urine Negative (Negative); Leukocyte Esterase Ur Negative (Negative); Nitrate Urine Negative (Negative); Protein Urine Negative (Negative); Specific Grav Ur <= 1.005 (1.010-1.020); Urobilinogen Urine 0.2 mg/dL (0.2-1.0)
[2022-10-28 13:42] LABS: Hemoglobin A1C 6.2 % (<5.7)
[2022-10-28 13:55] LABS: Add Urine Microscopic? NO
[2022-10-28 14:25] LABS: Alanine Aminotransferase 15 U/L (16-63); Albumin Level 3.7 g/dL (3.4-5.0); Alkaline Phosphatase 127 U/L (46-116); Ammonia 18 umol/L (11-32); Anion Gap 7 mmol/L (8-16); Aspartate Amino Transferase 16 U/L (15-37); Bilirubin,Total 0.4 mg/dL (0.00-1.00); Blood Urea Nitrogen 20 mg/dL (7-18); Calcium 8.9 mg/dL (8.5-10.1); Carbon Dioxide 30 mmol/L (21-32); Chloride 99 mmol/L (98-108); Cholesterol 184 mg/dL (0-200); Creatine Kinase 93 U/L (39-308); Estimated Glomerular Filt Rate > 60; Ferritin 21 ng/mL (26-388); Free T3 2.61 pg/mL (2.18-3.98); Free T4 Free Thyroxine 2.15 ng/dL (0.76-1.46); Glucose 103 mg/dL (70-99); HDL Direct 39 mg/dL (40-60); Iron 123 ug/dL (65-175); LDL Cholesterol Calculated 115 mg/dL (<130); NT Pro B Type Natriuretic Pept 155 pg/mL (0-125); Osmolality Calculated 284 mOsm/kg (285-295); Potassium 3.9 mmol/L (3.5-5.1); Prostate Specific Antigen 0.2 ng/mL (< OR = 4.0); Sodium 136 mmol/L (136-145); Thyroid Stimulating Hormone 3.16 uIU/mL (0.36-3.74); Total Protein 8.2 g/dL (6.4-8.2); Triglycerides 150 mg/dL (0-150); Vitamin B12 345 pg/mL (193-986)
== END 2022-10-28 12:50 | disposition home or self-care (01) ==
LOC: CHSLAB 12:52
PROVIDERS: PCP Internal Medicine; Visit Provider Internal Medicine
DX: K70.31 Alcoholic cirrhosis of liver with ascites (principal); D64.9 Anemia, unspecified; I48.20 Chronic atrial fibrillation, unspecified; E79.0 Hyperuricemia without signs of inflammatory arthritis and tophaceous disease; E78.2 Mixed hyperlipidemia; I50.9 Heart failure, unspecified; Z12.5 Encounter for screening for malignant neoplasm of prostate
CPT/HCPCS: 36415; 80053; 80061; 81003; 82140; 82550; 82607; 82728; 83036; 83540; 83880; 84153; 84439; 84443; 84481; 85025; G0103

== ENCOUNTER 2022-11-05 12:53 | Outpatient (CLI) | payer MEDICARE, MEDICAID, SELFPAY ==
--- NOTE | ~2022-11-05 | CT_ITS ---
EXAMINATION: CT lumbar spine wo con DATE: 11/05/2022 13:11 INDICATION: Chronic low back pain. TECHNIQUE: Computed tomography (CT) of the lumbar spine was performed without intravenous contrast. A utomated exposure control and iterative reconstruction technique were employed. The dose-length produ ct was 1224.97 mGy-cm. COMPARISON: CT abdomen and pelvis 01/16/2022 FINDINGS: There is calcified atherosclerosis of the aorta and many of the other arteries. Bone alignm ent is normal. Vertebral body heights are normal. There is mildly decreased disc height at L4-L5. The following disc levels are specifically discussed: L1-L2: The disc does not extend beyond the endplate margin. There is mild bilateral facet joint osteo arthritis. There is no neural foraminal stenosis. There is no central canal stenosis. L2-L3: The disc does not extend beyond the endplate margin. There is moderate bilateral facet joint o steoarthritis. There is no neural foraminal stenosis. There is no central canal stenosis. L3-L4: The disc does not extend beyond the endplate margin. There is severe bilateral facet joint ost eoarthritis. There is no neural foraminal stenosis. There is no central canal stenosis. L4-L5: The disc is bulging. There is severe right and moderate left facet joint osteoarthritis. There is mild bilateral neural foraminal stenosis. There is mild central canal stenosis. L5-S1: The disc is bulging. There is severe bilateral facet joint osteoarthritis. There is mild bilat eral neural foraminal stenosis. There is mild central canal stenosis. IMPRESSION: 1. Mild lumbar spondylosis. Reviewed, dictated and finalized at location E. IMPRESSION: 1. Mild lumbar spondylosis.
== END 2022-11-05 12:54 | disposition home or self-care (01) ==
LOC: CHSIMG 12:54
PROVIDERS: PCP Internal Medicine; Visit Provider Internal Medicine
DX: M54.50 Low back pain, unspecified (principal); M43.06 Spondylolysis, lumbar region
CPT/HCPCS: 72131

== ENCOUNTER 2023-01-02 13:51 | Outpatient (RCR) | payer MEDICARE, MEDICAID, SELFPAY ==
--- NOTE | 2023-01-02 15:28 | PTOPEVAL1 ---
Assessment and note entered by Kelsea Vicente, PT Evaluation Information Assessment Status Evaluation Diagnosis Back Pain Subjective Information Tobias Leslie reports he was diagnosed with ankylosing spondylitis about 5 years ago. 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 He has not noticed much change in pain since starting the injections. He has had low back pain for several years prior to his diagnosis. He has been on heavy pain medication which is the only thing that helps. 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 He has a history of cardiac problems, cirrhosis of the liver, and an umbilical hernia with diastasis recti. 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 He has recently started pain management who referred him to PT. He has been on disability since 2010 for his heart and back. Reported Pain Level Pain Score 3: Self Report Assessment PT Clinical Summary Tobias Leslie presents with chronic low back pain and has been diagnosed with ankylosing spondylitis , spondylosis, and degenerative disc disease. He has difficulty with standing more than 5 minutes, laying flat on his back, and balance which leads to difficulty with bathing, grooming, cleaning, cooking, shopping, driving, and walking. He objectively demonstrates tenderness in the left lumbar paraspinals and gluteals, decreased and painful lumbar AROM, decreased core and hip strength, impaired balance, impaired gait, and decreased functional abilities. He will benefit from skilled PT to address these limitations. Plan of Care Interventions Electrical Stimulation,Hot Pack/Cold Pack,Manual Therapy,Neuro Re-education,Patient/Caregiver Educati,Therapeutic Activities,Therapeutic Exercise PT Services Indicated Yes Treatment Frequency and 3 times a week for 18 visits Duration These treatments will address the objective and functional deficits as defined above. The patient will be advanced safely and appropriately in order for the patient to progress towards his/her prior level of function. Additional exercises will be introduced and as well as a comprehensive home exercise program upon discharge, if needed, ?to ensure carryover of functional gains achieved in the clinic. This treatment plan has been reviewed and agreement upon by the patient.
--- NOTE | 2023-01-02 15:28 | OPREHPOC ---
Outpatient Therapy Plan of Care This is a Multidisciplinary Plan of Care that may contain components documented by all disciplines (PT, OT, and ST.) PT Problem 1 PT Problem #1 Knowledge Deficit PT Goal 1 Goal The patient will be independent in a home exercise program to continue after discharge from formal PT. Target Visit 18 PT Problem 2 PT Problem #2 Pain PT Goal 1 Goal The patient will report no greater than 4/10 back pain with daily activities. Target Visit 18 PT Problem 3 PT Problem #3 Impaired Strength PT Goal 1 Goal The patient will demonstrate the ability to perform sit to stand without using the UE indicating improve core and LE strength. Target Visit 18 PT Problem 4 PT Problem #4 Impaired Functional Mobil PT Goal 1 Goal The patient will have 50% or less self perceived disability per the Back Index questionnaire. Target Visit 18 PT Problem 5 PT Problem #5 Impaired Balance PT Goal 1 Goal The patient will improve Tinetti Balance Score to 19 or greater indicating less likelihood of a fall . Target Visit 18
--- NOTE | 2023-01-28 14:16 | PTOPPROG ---
Assessment and note entered by Kelsea Vicente, PT Evaluation Information Assessment Status Progress Diagnosis Back Pain, ankylosing spondylitis Onset 12/26/22 Subjective Information Tobias Leslie reports he is doing a little better but still has difficulty with stiffness and low back pain especially in the morning. He notes less pain the rest of the day following his PT session but still has pain again by the next day. He continues to have increased pain with standing more than 5 minutes especially when bending at the same time which leads to limitations with washing dishes and performing bathing and grooming tasks. He is unable to clean, cook, and wash laundry. He denies falls since initiating PT. Assessment PT Clinical Summary Tobias Leslie has completed 10 skilled PT visits for low back pain. He is reporting mild improvements in pain and steady improvements in strength since initiating PT. 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 He objectively demonstrates improvements in lumbar AROM, balance, and LE strength. He continues to be a high fall risk per the Tinetti Balance test, demonstrate core and hip weakness, decreased endurance, and decreased mobility. He will continue to benefit from skilled PT to further address these limitations. Plan of Care Interventions Electrical Stimulation,Hot Pack/Cold Pack,Manual Therapy,Neuro Re-education,Patient/Caregiver Educati,Therapeutic Activities,Therapeutic Exercise PT Services Indicated Yes Treatment Frequency and 3 times a week for 8 visits Duration These treatments will address the objective and functional deficits as defined above. The patient will be advanced safely and appropriately in order for the patient to progress towards his/her prior level of function. Additional exercises will be introduced and as well as a comprehensive home exercise program upon discharge, if needed, ?to ensure carryover of functional gains achieved in the clinic. This treatment plan has been reviewed and agreement upon by the patient.
--- NOTE | 2023-01-28 14:16 | OPREHPOC ---
Outpatient Therapy Plan of Care This is a Multidisciplinary Plan of Care that may contain components documented by all disciplines (PT, OT, and ST.) PT Problem 1 PT Problem #1 Knowledge Deficit PT Goal 1 Goal The patient will be independent in a home exercise program to continue after discharge from formal PT. Target Visit 18 Progress Partially Met Comment continue PT Problem 2 PT Problem #2 Pain PT Goal 1 Goal The patient will report no greater than 4/10 back pain with daily activities. Target Visit 18 Progress Not Met Comment continue PT Problem 3 PT Problem #3 Impaired Strength PT Goal 1 Goal The patient will demonstrate the ability to perform sit to stand without using the UE indicating improve core and LE strength. Target Visit 18 Progress Not Met Comment continue PT Problem 4 PT Problem #4 Impaired Functional Mobil PT Goal 1 Goal The patient will have 50% or less self perceived disability per the Back Index questionnaire. Target Visit 18 Progress Partially Met Comment continue PT Problem 5 PT Problem #5 Impaired Balance PT Goal 1 Goal The patient will improve Tinetti Balance Score to 19 or greater indicating less likelihood of a fall . Target Visit 18 Progress Partially Met Comment continue
--- NOTE | 2023-02-20 14:49 | PTOPDC ---
Assessment and note entered by Kelsea Vicente, PT Evaluation Information Assessment Status Discharge Diagnosis Back Pain, Ankylosing Spondylitis Onset 12/26/22 Subjective Information Tobias Leslie reports his pain is still present but is better overall. He still notes the most pain first thing in the morning when he does not have pain medicine in his system. He also has limitations with standing which limits his ability to cook, clean, bathe, and groom. He has purchased a home TENS unit from [employer] which has been helping with pain control at home. He feels he has improved 20-30% overall and would like to try to continue PT on his own with home exercises. Reported Pain Level Pain Score 3: Self Report Assessment PT Clinical Summary Tobias Leslie has completed 18 skilled PT visits for low back pain. He is reporting a 20-30% overall improvement in back pain and mobility. He is demonstrating improved lumbar AROM, improved strength, and improved balance since initiating PT . He will be discharged to an independent [facility]. Plan of Care PT Services Indicated No
--- NOTE | 2023-02-20 14:49 | OPREHPOC ---
Outpatient Therapy Plan of Care This is a Multidisciplinary Plan of Care that may contain components documented by all disciplines (PT, OT, and ST.) PT Problem 1 PT Problem #1 Knowledge Deficit PT Goal 1 Goal The patient will be independent in a home exercise program to continue after discharge from formal PT. Target Visit 18 Progress Met Comment continue PT Problem 2 PT Problem #2 Pain PT Goal 1 Goal The patient will report no greater than 4/10 back pain with daily activities. Target Visit 18 Progress Met Comment continue PT Problem 3 PT Problem #3 Impaired Strength PT Goal 1 Goal The patient will demonstrate the ability to perform sit to stand without using the UE indicating improve core and LE strength. Target Visit 18 Progress Met Comment continue PT Problem 4 PT Problem #4 Impaired Functional Mobil PT Goal 1 Goal The patient will have 50% or less self perceived disability per the Back Index questionnaire. Target Visit 18 Progress Partially Met PT Problem 5 PT Problem #5 Impaired Balance PT Goal 1 Goal The patient will improve Tinetti Balance Score to 19 or greater indicating less likelihood of a fall . Target Visit 18 Progress Met Comment continue
== END 2023-04-02 23:59 | disposition home or self-care (01) ==
LOC: CHSPT 13:51
PROVIDERS: PCP Internal Medicine; Visit Provider Pain Medicine Pain Medicine
DX: M47.816 Spondylosis without myelopathy or radiculopathy, lumbar region (principal); M54.59 Other low back pain
CPT/HCPCS: 97014; 97110; 97161; 97162; 97530; 97750; G0283

== ENCOUNTER 2023-02-03 14:02 | Outpatient (CLI) | payer MEDICARE, MEDICAID, SELFPAY ==
[2023-02-03 14:25] LABS: Basophils Absolute Auto 0.07 K/mm3 (0.00-0.10); Basophils Percent Auto 0.8 % (0.0-1.0); Eosinophils Absolute Auto 0.28 K/mm3 (0.02-0.50); Eosinophils Percent Auto 3.3 % (1.0-6.0); Hematocrit 44.5 % (40.0-54.0); Hemoglobin 14.3 g/dL (14.0-18.0); Immature Granulocyte Absolute 0.03 K/mm3 (0.00-0.00); Immature Granulocyte Percent A 0.4 % (0.0-0.0); Lymphocytes Absolute Auto 1.69 K/mm3 (1.10-4.50); Lymphocytes Percent Auto 20.2 % (18.0-42.0); Mean Corpuscular HGB Conc 32.1 g/dL (32.0-36.0); Mean Corpuscular Hemoglobin 29.5 pg (27.0-31.0); Mean Corpuscular Volume 91.8 fL (78.0-102.0); Mean Platelet Volume 9.5 fl (8.7-11.0); Monocytes Absolute Auto 0.78 K/mm3 (0.10-0.90); Monocytes Percent Auto 9.3 % (2.0-11.0); Neutrophils Absolute Auto 5.5 K/mm3 (1.7-7.2); Platelet Count Result 203 K/mm3 (150-420); Red Blood Count 4.85 M/mm3 (4.70-6.10); Red Cell Distribution Width 14.5 % (11.6-14.4); White Blood Count 8.4 K/mm3 (4.8-10.8)
[2023-02-03 14:40] LABS: Appearance Urine Clear (Clear); Bilirubin Urine Negative (Negative); Blood Urine Negative (Negative); Color Urine Light Yellow (Yellow); Glucose Urine UA Negative (Negative); Ketones Urine Negative (Negative); Leukocyte Esterase Ur Negative (Negative); Nitrate Urine Negative (Negative); Protein Urine Negative (Negative); Specific Grav Ur <= 1.005 (1.010-1.020); Urobilinogen Urine 0.2 mg/dL (0.2-1.0); pH Urine 7.5 (5.0-8.0)
[2023-02-03 14:54] LABS: Hemoglobin A1C 6.1 % (<5.7)
[2023-02-03 14:58] LABS: Add Urine Microscopic? NO
[2023-02-03 15:05] LABS: Alanine Aminotransferase 11 U/L (16-63); Albumin Level 3.7 g/dL (3.4-5.0); Alkaline Phosphatase 126 U/L (46-116); Anion Gap 10 mmol/L (8-16); Aspartate Amino Transferase 15 U/L (15-37); Bilirubin,Total 0.6 mg/dL (0.00-1.00); Blood Urea Nitrogen 12 mg/dL (7-18); Calcium 9.4 mg/dL (8.5-10.1); Carbon Dioxide 29 mmol/L (21-32); Chloride 98 mmol/L (98-108); Estimated Glomerular Filt Rate > 60; Glucose 101 mg/dL (70-99); Osmolality Calculated 283 mOsm/kg (285-295); Potassium 4.3 mmol/L (3.5-5.1); Sodium 137 mmol/L (136-145); Total Protein 7.7 g/dL (6.4-8.2)
== END 2023-02-03 14:03 | disposition home or self-care (01) ==
LOC: CHSLAB 14:05
PROVIDERS: PCP Internal Medicine; Visit Provider Internal Medicine
DX: E11.9 Type 2 diabetes mellitus without complications (principal); I10 Essential (primary) hypertension; I48.20 Chronic atrial fibrillation, unspecified; D64.9 Anemia, unspecified
CPT/HCPCS: 36415; 80053; 81003; 83036; 85025

== ENCOUNTER 2023-04-09 12:46 | Outpatient (CLI) | payer MEDICARE, MEDICAID, SELFPAY ==
--- NOTE | 2023-04-09 17:02 | WPDSIXMINUTE ---
Six Minute Walk Procedure Procedure Performed Pulmonary Stress Test (6 min walk) Six Minute Walk Six Minute Walk: This is a 6 minute walk test. The test was performed and interpreted in accordance with the 2014 ERS/ATS task force guidelines. Of note, patient uses a wheeled walker during the examination. Findings: The patient's resting room air oxygen saturation measured by pulse oximetry was 94% and heart rate was 80 bpm. Patient ambulated for 305 meters and oxygen saturation remained 91 to 92%. Heart rate at the end of the study was 109 bpm. The patient did not qualify for supplemental oxygen at rest or with ambulation. There are no prior studies for comparison.
== END 2023-04-09 12:47 | disposition home or self-care (01) ==
LOC: ANHPFT 12:47
PROVIDERS: PCP Internal Medicine; Visit Provider Physician Assistant
DX: J44.9 Chronic obstructive pulmonary disease, unspecified (principal)
CPT/HCPCS: 94618

== ENCOUNTER 2023-05-22 13:36 | Outpatient (CLI) | payer MEDICARE, SELFPAY ==
[2023-05-22 13:53] LABS: Basophils Absolute Auto 0.07 K/mm3 (0.00-0.10); Basophils Percent Auto 0.7 % (0.0-1.0); Eosinophils Absolute Auto 0.93 K/mm3 (0.02-0.50); Eosinophils Percent Auto 9.6 % (1.0-6.0); Hematocrit 42.1 % (40.0-54.0); Hemoglobin 13.7 g/dL (14.0-18.0); Immature Granulocyte Absolute 0.04 K/mm3 (0.00-0.00); Immature Granulocyte Percent A 0.4 % (0.0-0.0); Lymphocytes Absolute Auto 1.48 K/mm3 (1.10-4.50); Lymphocytes Percent Auto 15.2 % (18.0-42.0); Mean Corpuscular HGB Conc 32.5 g/dL (32.0-36.0); Mean Corpuscular Hemoglobin 29.9 pg (27.0-31.0); Mean Corpuscular Volume 91.9 fL (78.0-102.0); Mean Platelet Volume 8.6 fl (8.7-11.0); Monocytes Absolute Auto 0.95 K/mm3 (0.10-0.90); Monocytes Percent Auto 9.8 % (2.0-11.0); Neutrophils Absolute Auto 6.3 K/mm3 (1.7-7.2); Neutrophils Percent Auto 64.3 % (50.0-70.0); Platelet Count Result 212 K/mm3 (150-420); Red Blood Count 4.58 M/mm3 (4.70-6.10); Red Cell Distribution Width 14.4 % (11.6-14.4); White Blood Count 9.7 K/mm3 (4.8-10.8)
[2023-05-22 13:59] LABS: Appearance Urine Clear (Clear); Bilirubin Urine Negative (Negative); Blood Urine Negative (Negative); Color Urine Light Yellow (Yellow); Glucose Urine UA Negative (Negative); Ketones Urine Negative (Negative); Leukocyte Esterase Ur Negative (Negative); Nitrate Urine Negative (Negative); Protein Urine Negative (Negative); Specific Grav Ur <= 1.005 (1.010-1.020); Urobilinogen Urine 0.2 mg/dL (0.2-1.0); pH Urine 6.5 (5.0-8.0)
[2023-05-22 14:03] LABS: Hemoglobin A1C 5.9 % (<5.7)
[2023-05-22 14:08] LABS: Add Urine Microscopic? NO
[2023-05-22 14:42] LABS: Alanine Aminotransferase 11 U/L (16-63); Albumin Level 3.4 g/dL (3.4-5.0); Alkaline Phosphatase 103 U/L (46-116); Anion Gap 11 mmol/L (8-16); Aspartate Amino Transferase 15 U/L (15-37); Bilirubin,Total 0.6 mg/dL (0.00-1.00); Blood Urea Nitrogen 12 mg/dL (7-18); Carbon Dioxide 27 mmol/L (21-32); Chloride 97 mmol/L (98-108); Cholesterol 162 mg/dL (0-200); Creatine Kinase 70 U/L (39-308); Estimated Glomerular Filt Rate > 60; Free T4 Free Thyroxine 2.37 ng/dL (0.76-1.46); Glucose 101 mg/dL (70-99); HDL Direct 32 mg/dL (40-60); LDL Cholesterol Calculated 116 mg/dL (<130); Osmolality Calculated 279 mOsm/kg (285-295); Sodium 135 mmol/L (136-145); Thyroid Stimulating Hormone 1.31 uIU/mL (0.36-3.74); Total Protein 8.5 g/dL (6.4-8.2); Triglycerides 72 mg/dL (0-150); Uric Acid 5.6 mg/dL (3.5-7.2); Vitamin B12 416 pg/mL (193-986)
[2023-05-22 14:47] LABS: Ammonia < 10 umol/L (11-32)
== END 2023-05-22 13:37 | disposition home or self-care (01) ==
PROVIDERS: PCP Internal Medicine; Visit Provider Internal Medicine
DX: E78.2 Mixed hyperlipidemia (principal); I10 Essential (primary) hypertension; D64.9 Anemia, unspecified; R73.01 Impaired fasting glucose; G62.9 Polyneuropathy, unspecified; E79.0 Hyperuricemia without signs of inflammatory arthritis and tophaceous disease; K70.30 Alcoholic cirrhosis of liver without ascites; I48.20 Chronic atrial fibrillation, unspecified
CPT/HCPCS: 36415; 80053; 80061; 81003; 82140; 82550; 82607; 83036; 84439; 84443; 84550; 85025

== ENCOUNTER 2023-09-04 13:11 | Outpatient (CLI) | payer MEDICARE, SELFPAY ==
[2023-09-04 13:37] LABS: Hemoglobin A1C 5.2 % (<5.7)
[2023-09-04 14:03] LABS: Alanine Aminotransferase 11 U/L (16-63); Albumin Level 3.4 g/dL (3.4-5.0); Alkaline Phosphatase 110 U/L (46-116); Anion Gap 9 mmol/L (4-12); Aspartate Amino Transferase 10 U/L (15-37); Bilirubin,Total 0.5 mg/dL (0.00-1.00); Blood Urea Nitrogen 10 mg/dL (7-18); Calcium 8.9 mg/dL (8.5-10.1); Carbon Dioxide 31 mmol/L (21-32); Chloride 102 mmol/L (98-108); Estimated Glomerular Filt Rate > 60; Glucose 87 mg/dL (70-99); Osmolality Calculated 292 mOsm/kg (285-295); Potassium 4.2 mmol/L (3.5-5.1); Sodium 142 mmol/L (136-145); Total Protein 7.3 g/dL (6.4-8.2)
== END 2023-09-04 13:12 | disposition home or self-care (01) ==
LOC: CHSLAB 13:13
PROVIDERS: PCP Internal Medicine; Visit Provider Internal Medicine
DX: K70.30 Alcoholic cirrhosis of liver without ascites (principal); I48.20 Chronic atrial fibrillation, unspecified; R73.01 Impaired fasting glucose; I10 Essential (primary) hypertension
CPT/HCPCS: 36415; 80053; 83036

== ENCOUNTER 2023-10-13 13:57 | Outpatient (CLI) | payer MEDICARE, MEDICAID, SELFPAY ==
--- NOTE | ~2023-10-13 | CT_ITS ---
EXAMINATION:CT lung screening DATE: 10/13/2023 14:16 INDICATION: Personal history of nicotine dependence. 30 pack year history. TECHNIQUE: Computed tomography (CT) of the chest was performed without intravenous contrast. Automate d exposure control and iterative reconstruction technique were employed. The dose-length product (DLP ) was 188.96 mGy-cm. COMPARISON: Chest CT 10/11/2022 FINDINGS: There is mild emphysema. There is mild atelectasis bilaterally. There is a 6 mm nodule in l eft upper lobe, increased from 3 mm. There is a 4 mm nodule in left upper lobe. There are few nodules in left lung measuring 3 mm or less. Calcified left lung nodules and calcified left hilar lymph node s are consistent with old granulomatous disease. No pleural effusion. The heart size is normal. There are coronary artery calcifications. No pericardial effusion. There are changes of coronary artery by pass grafting. Calcifications in the spleen are consistent with old granulomatous disease. There is a small sliding hiatal hernia. There is mild bilateral gynecomastia. There is mild thoracic spondylosi s. IMPRESSION: 1. Lung-RADS category 4A: Suspicious. Noncontrast low-dose chest CT is recommended in 3 months. Reviewed, dictated and finalized at location E. IMPRESSION: 1. Lung-RADS category 4A: Suspicious. Noncontrast low-dose chest CT is recommen ded in 3 months.
== END 2023-10-13 13:58 | disposition home or self-care (01) ==
PROVIDERS: PCP Internal Medicine; Visit Provider Physician Assistant
DX: Z12.2 Encounter for screening for malignant neoplasm of respiratory organs (principal); Z87.891 Personal history of nicotine dependence; R91.8 Other nonspecific abnormal finding of lung field
CPT/HCPCS: 71271

== ENCOUNTER 2023-10-23 10:39 | Outpatient (CLI) | payer MEDICARE, MEDICAID, SELFPAY ==
--- NOTE | ~2023-10-23 | MR_ITS ---
EXAMINATION: MR lumbar spine wo con DATE: 10/23/2023 11:16 INDICATION: Chronic low back pain with bilateral leg weakness TECHNIQUE: Magnetic resonance imaging (MRI) of the lumbar spine was performed without intravenous con trast. Sequences included sagittal T2-weighted FSE, sagittal T2-weighted FS FSE, sagittal T1-weighted FSE, and axial T2-weighted FSE. COMPARISON: CT dated 11/05/2022 FINDINGS: Alignment is normal. Vertebral body heights are normal. There is heterogeneous marrow signal with sca ttered fibrofatty degenerative endplate changes at multiple levels. Mild disc height loss and mild de creased disc signal at L4-L5 and L5-S1. Annular fissure at L5-S1. The conus medullaris terminates at L1. There is normal signal in the caudal spinal cord. Paravertebral soft tissues are unremarkable. Th e following disc levels are specifically discussed: T12-L1: The disc does not extend beyond the endplate margin. There is old right and moderate left fac et joint osteoarthritis. There is no neural foraminal stenosis. There is no central canal stenosis. L1-L2: The disc does not extend beyond the endplate margin. There is mild bilateral facet joint osteo arthritis. There is mild bilateral neural foraminal stenosis. There is no central canal stenosis. L2-L3: The disc does not extend beyond the endplate margin. There is moderate bilateral facet joint o steoarthritis. There is mild bilateral neural foraminal stenosis. There is no central canal stenosis. L3-L4: The disc does not extend beyond the endplate margin. There is hypertrophy of the ligamentum fl avum. There is moderate to severe bilateral facet joint osteoarthritis. There is mild bilateral neura l foraminal stenosis. There is mild central canal stenosis. L4-L5: Disc is mildly bulging. There is hypertrophy of the ligamentum flavum. There is mild left and moderate right facet joint osteoarthritis. There is moderate bilateral neural foraminal stenosis. The re is mild central canal stenosis. L5-S1: Disc is mildly bulging with superimposed annular fissure. There is moderate left and severe ri ght facet joint osteoarthritis. There is mild bilateral neural foraminal stenosis. There is no centra l canal stenosis. IMPRESSION: 1. Mild lumbar spondylosis. Reviewed, dictated and finalized at location B. IMPRESSION: 1. Mild lumbar spondylosis.
== END 2023-10-23 10:40 | disposition home or self-care (01) ==
LOC: CHSIMG 10:40
PROVIDERS: PCP Internal Medicine; Visit Provider Internal Medicine
DX: M54.50 Low back pain, unspecified (principal); M43.06 Spondylolysis, lumbar region
CPT/HCPCS: 72148

== ENCOUNTER 2023-11-04 10:16 | Outpatient (CLI) | payer MEDICARE, SELFPAY ==
[2023-11-04 10:45] LABS: Basophils Absolute Auto 0.05 K/mm3 (0.00-0.10); Basophils Percent Auto 0.6 % (0.0-1.0); Eosinophils Absolute Auto 0.26 K/mm3 (0.02-0.50); Hematocrit 42.8 % (40.0-54.0); Hemoglobin 13.8 g/dL (14.0-18.0); Immature Granulocyte Absolute 0.02 K/mm3 (0.00-0.00); Immature Granulocyte Percent A 0.2 % (0.0-0.0); Lymphocytes Absolute Auto 2.12 K/mm3 (1.10-4.50); Lymphocytes Percent Auto 24.8 % (18.0-42.0); Mean Corpuscular HGB Conc 32.2 g/dL (32-36); Mean Corpuscular Hemoglobin 30.5 pg (27.0-31.0); Mean Corpuscular Volume 94.5 fL (78.0-102.0); Mean Platelet Volume 9.4 fl (8.7-11.0); Monocytes Percent Auto 10.5 % (2.0-11.0); Neutrophils Absolute Auto 5.21 K/mm3 (1.70-7.20); Neutrophils Percent Auto 60.9 % (50.0-70.0); Platelet Count Result 191 K/mm3 (150-420); Red Blood Count 4.53 M/mm3 (4.70-6.10); Red Cell Distribution Width 14.1 % (11.6-14.4); White Blood Count 8.6 K/mm3 (4.8-10.8)
[2023-11-04 10:59] LABS: INR 1.1; Prothrombin Time 11.6 Seconds (9.50-12.1)
[2023-11-04 11:28] LABS: Alanine Aminotransferase 11 U/L (16-63); Albumin Level 3.4 g/dL (3.4-5.0); Alkaline Phosphatase 118 U/L (46-116); Anion Gap 8 mmol/L (4-12); Aspartate Amino Transferase 15 U/L (15-37); Bilirubin,Total 0.5 mg/dL (0.00-1.00); Blood Urea Nitrogen 9 mg/dL (7-18); Calcium 8.6 mg/dL (8.5-10.1); Carbon Dioxide 30 mmol/L (21-32); Chloride 100 mmol/L (98-108); Estimated Glomerular Filt Rate > 60; Glucose 89 mg/dL (70-99); Osmolality Calculated 283 mOsm/kg (285-295); Potassium 4.1 mmol/L (3.5-5.1); Sodium 138 mmol/L (136-145); Total Protein 7.3 g/dL (6.4-8.2)
== END 2023-11-04 10:17 | disposition home or self-care (01) ==
LOC: CHSLAB 10:19
PROVIDERS: PCP Internal Medicine; Visit Provider Nurse Practitioner
DX: K70.30 Alcoholic cirrhosis of liver without ascites (principal)
CPT/HCPCS: 36415; 80053; 82105; 85025; 85610

== ENCOUNTER 2023-11-19 15:18 | Outpatient (NON) | payer MEDICARE, SELFPAY ==
[2023-11-21 10:33] LABS: Alpha Fetoprotein Tumor Marker 2.6 ng/mL (<6.1)
== END 2023-11-19 15:19 | disposition home or self-care (01) ==
LOC: CHSLAB 15:20
PROVIDERS: Visit Provider Nurse Practitioner
DX: K70.30 Alcoholic cirrhosis of liver without ascites (principal)
CPT/HCPCS: 82105

== ENCOUNTER 2024-01-12 13:53 | Outpatient (CLI) | payer MEDICARE, MEDICAID, SELFPAY ==
--- NOTE | ~2024-01-12 | CT_ITS ---
EXAMINATION:CT diagnostic chest wo con DATE: 01/12/2024 14:07 INDICATION: Solitary pulmonary nodule. TECHNIQUE: Computed tomography (CT) of the chest was performed without intravenous contrast. Automate d exposure control and iterative reconstruction technique were employed. The dose-length product (DLP ) was 148.05 mGy-cm. COMPARISON: Chest CT 10/13/2023 FINDINGS: There is a new 10 mm cavitary nodule in right upper lobe. There is a new 5 mm nodule in lef t upper lobe. There is a stable 5 mm nodule in left upper lobe. Calcified left lung nodules and calci fied left hilar and mediastinal lymph nodes are consistent with old granulomatous disease. There is m ild atelectasis in right lower lobe. No pleural effusion. The heart size is normal. There are coronar y artery calcifications. There are changes of coronary bypass grafting. No pericardial effusion. Ther e is mild bilateral gynecomastia. There is mild thoracic spondylosis. IMPRESSION: 1. Worsened pulmonary nodules, probably infection. Noncontrast low-dose chest CT is recommended in 3 months. Reviewed, dictated and finalized at location A. IMPRESSION: 1. Worsened pulmonary nodules, probably infection. Noncontrast low-dose chest C T is recommended in 3 months.
== END 2024-01-12 13:54 | disposition home or self-care (01) ==
LOC: CHSIMG 13:55
PROVIDERS: PCP Internal Medicine; Visit Provider Physician Assistant
DX: R91.8 Other nonspecific abnormal finding of lung field (principal)
CPT/HCPCS: 71250

== ENCOUNTER 2024-01-20 12:12 | Outpatient (CLI) | payer MEDICARE, SELFPAY ==
[2024-01-20 12:34] LABS: Basophils Absolute Auto 0.04 K/mm3 (0.00-0.10); Basophils Percent Auto 0.5 % (0.0-1.0); Eosinophils Absolute Auto 0.23 K/mm3 (0.02-0.50); Eosinophils Percent Auto 3.1 % (1.0-6.0); Hematocrit 43.4 % (40.0-54.0); Hemoglobin 14.2 g/dL (14.0-18.0); Immature Granulocyte Absolute 0.01 K/mm3 (0.00-0.00); Immature Granulocyte Percent A 0.1 % (0.0-0.0); Lymphocytes Absolute Auto 1.83 K/mm3 (1.10-4.50); Lymphocytes Percent Auto 24.4 % (18.0-42.0); Mean Corpuscular HGB Conc 32.7 g/dL (32-36); Mean Corpuscular Hemoglobin 30.5 pg (27.0-31.0); Mean Corpuscular Volume 93.1 fL (78.0-102.0); Mean Platelet Volume 9.7 fl (8.7-11.0); Monocytes Absolute Auto 0.86 K/mm3 (0.10-0.90); Monocytes Percent Auto 11.5 % (2.0-11.0); Neutrophils Absolute Auto 4.52 K/mm3 (1.70-7.20); Neutrophils Percent Auto 60.4 % (50.0-70.0); Platelet Count Result 171 K/mm3 (150-420); Red Blood Count 4.66 M/mm3 (4.70-6.10); Red Cell Distribution Width 14.1 % (11.6-14.4); White Blood Count 7.5 K/mm3 (4.8-10.8)
[2024-01-20 12:35] LABS: Add Urine Microscopic? NO; Appearance Urine Clear (Clear); Bilirubin Urine Negative (Negative); Blood Urine Negative (Negative); Color Urine Light Yellow (Yellow); Glucose Urine UA Negative (Negative); Ketones Urine Negative (Negative); Leukocyte Esterase Ur Negative (Negative); Nitrate Urine Negative (Negative); Protein Urine Negative (Negative); Specific Grav Ur <= 1.005 (1.010-1.020); Urobilinogen Urine 0.2 mg/dL (0.2-1.0)
[2024-01-20 12:55] LABS: Hemoglobin A1C 5.7 % (<5.7)
[2024-01-20 13:41] LABS: Alanine Aminotransferase 8 U/L (16-63); Albumin Level 3.5 g/dL (3.4-5.0); Alkaline Phosphatase 113 U/L (46-116); Anion Gap 3 mmol/L (4-12); Aspartate Amino Transferase 14 U/L (15-37); Bilirubin,Total 0.7 mg/dL (0.00-1.00); Blood Urea Nitrogen 9 mg/dL (7-18); Calcium 9.3 mg/dL (8.5-10.1); Carbon Dioxide 35 mmol/L (21-32); Chloride 102 mmol/L (98-108); Cholesterol 196 mg/dL (0-200); Creatine Kinase 47 U/L (39-308); Estimated Glomerular Filt Rate 58; Free T3 1.99 pg/mL (2.18-3.98); Free T4 Free Thyroxine 1.71 ng/dL (0.76-1.46); Glucose 89 mg/dL (70-99); HDL Direct 33 mg/dL (40-60); LDL Cholesterol Calculated 141 mg/dL (<130); Osmolality Calculated 287 mOsm/kg (285-295); Potassium 4.1 mmol/L (3.5-5.1); Sodium 140 mmol/L (136-145); Thyroid Stimulating Hormone 1.77 uIU/mL (0.36-3.74); Total Protein 7.5 g/dL (6.4-8.2); Triglycerides 112 mg/dL (0-150); Vitamin B12 289 pg/mL (193-986)
== END 2024-01-20 12:13 | disposition home or self-care (01) ==
LOC: CHSLAB 12:17
PROVIDERS: PCP Internal Medicine; Visit Provider Internal Medicine
DX: K70.30 Alcoholic cirrhosis of liver without ascites (principal); E78.2 Mixed hyperlipidemia; E79.0 Hyperuricemia without signs of inflammatory arthritis and tophaceous disease; G62.9 Polyneuropathy, unspecified; R73.01 Impaired fasting glucose; I48.20 Chronic atrial fibrillation, unspecified
CPT/HCPCS: 36415; 80053; 80061; 81003; 82550; 82607; 83036; 84439; 84443; 84481; 85025

== ENCOUNTER 2024-03-04 10:05 | Outpatient (CLI) | payer MEDICARE, MEDICAID, SELFPAY ==
--- NOTE | ~2024-03-04 | US_ITS ---
EXAMINATION: US carotid duplex BI DATE: 03/04/2024 10:30 INDICATION: Carotid bruit. TECHNIQUE: Grayscale, color Doppler, and pulsed Doppler images of the cervical carotid arteries were obtained. The degree of vessel stenosis is placed in one of the following categories: normal, <50%, 5 0-69%, >=70% but less than near-occlusion, near-occlusion, or total occlusion. Note that percent sten osis relative to normal distal artery lumen diameter is indirectly measured from velocity measurement s as described by Sergio, et al. Radiology 2003; 229:340-346. COMPARISON: None. FINDINGS: RIGHT: The right common carotid artery (CCA) peak systolic velocity (PSV) is 98 cm/s. The right internal car otid artery (ICA) PSV is 60 cm/s. The right ICA end-diastolic velocity (EDV) is 23 cm/s. The right IC A/CCA PSV ratio is 0.6. Grayscale and color Doppler images yield an estimate of <50% diameter reducti on from plaque in the ICA. There is antegrade flow in the right vertebral artery. LEFT: The left CCA PSV is 85 cm/s. The left ICA PSV is 66 cm/s. The left ICA EDV is 22 cm/s. The left ICA/C CA PSV ratio is 0.8. Grayscale and color Doppler images yield an estimate of <50% diameter reduction from plaque in the ICA. There is antegrade flow in the left vertebral artery. IMPRESSION: 1. <50% stenosis in the right internal carotid artery. 2. <50% stenosis in the left internal carotid artery. Reviewed, dictated and finalized at location A. 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
== END 2024-03-04 10:06 | disposition home or self-care (01) ==
LOC: CHSIMG 10:08
PROVIDERS: PCP Internal Medicine; Visit Provider Internal Medicine
DX: I65.23 Occlusion and stenosis of bilateral carotid arteries (principal); R09.89 Other specified symptoms and signs involving the circulatory and respiratory systems
CPT/HCPCS: 93880

== ENCOUNTER 2024-03-29 13:55 | Outpatient (CLI) | payer MEDICARE, MEDICAID, SELFPAY ==
--- NOTE | ~2024-03-29 | CT_ITS ---
CT Scan of the Chest without Contrast: Clinical Indication: Pulmonary nodule Technique: Contiguous sections were acquired throughout the chest without intravenous contrast. Dose reduction technique was used on this scan by utilizing automated exposure control and iterative recon struction technique. The dose-length product (DLP) was 329.33 mGy-cm. COMPARISON: 01/12/2024 Findings: There is no evidence of any significant mediastinal, hilar or axillary lymphadenopathy. Coronary lakeisha ry calcifications are present. There is no evidence of pleural or pericardial effusion. Stable 4 mm left apical nodule present (axial image 34). Stable calcified left upper lobe granuloma. Other biapical nodule seen on prior exam are resolved. Images through the upper abdomen reveal no abnormalities. Stable probable sebaceous cyst in the left upper back. Impression: Stable 4 mm left apical nodule. Other bilateral nodules seen on prior exam are resolved, compatible with resolved infectious/inflamma tory process. Reviewed, dictated and finalized at [facility]. 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 Other bilateral nodules seen on prior exam are resolved, compatible with resolv ed infectious/inflammatory process.
== END 2024-03-29 13:56 | disposition home or self-care (01) ==
PROVIDERS: PCP Internal Medicine; Visit Provider Physician Assistant
DX: J44.9 Chronic obstructive pulmonary disease, unspecified (principal); R91.1 Solitary pulmonary nodule; Z72.0 Tobacco use
CPT/HCPCS: 71250

== ENCOUNTER 2024-05-24 13:00 | Outpatient (CLI) | payer MEDICARE, MEDICAID, SELFPAY ==
[2024-05-24 13:15] LABS: Hematocrit 43.6 % (37.0-46.0); Hemoglobin 13.8 g/dL (12.4-15.3); Mean Corpuscular HGB Conc 31.7 g/dL (32-36); Mean Corpuscular Hemoglobin 30.1 pg (27.0-31.0); Mean Corpuscular Volume 95.2 fL (78.0-102.0); Mean Platelet Volume 9.4 fl (8.7-11.0); Platelet Count Result 180 K/mm3 (150-420); Red Blood Count 4.58 M/mm3 (4.70-6.10); Red Cell Distribution Width 14.7 % (11.6-14.4); White Blood Count 7.7 K/mm3 (4.8-10.8)
--- OUTSIDE RECORDS SUMMARY | 2024-05-24 13:40 | XMS_ITS | Encounter Summary ---
Author Organization [facility] Address [address] [place] [address] Phone Care Team Providers Care Solar Sales Specialist Name Role Phone Raymond Prescott MD Primary Care Provider Consuelo Villareal MD Primary Care Provider [phone] Edelmira Balderas MD Unavailable [phone] Encounter Details Date Type Department Care Team (Late st Contact Info) Description 02/17/2020 Orders Only [facility] Scanning, Provider Social History Tobacco Use Types Packs/Day Years Used Date Smoking Tobacco: Every Day Cigarettes 0.1 51 Smokeless Tobacco: Never Alcohol Use Standard Drinks/Week Comments Yes 0 (1 standard drink = 0.6 oz pur e alcohol) Sex and Gender Information Value Date Recorded Sex Assigned at Not on file 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 Author CCM COPD Care Plan Chronic Care Management No Coleen Spear, RN Note: Problem: COPD Goals: 1. Avoid hospitalization 2. Prevent Exacerbations 3. Optimize lung function 4. Smoking cessation/abstinence 5. Prevent lung infections Strategies: - Establish Maintenance/Rescue Medication Regimen and Review on regular basis to make sure good control is established - Screen for signs of impending exacerbations/infections including wheezing, worsening of breathing, fevers, change in productive cough - Smoking counseling as needed. Established smoking cessation plan/abstinence maintenance strategies with Psychologist referral as needed - Make sure all vaccinations are up to date - Encourage regular MD visits and remind patient of importance of keeping upcoming appointments - Recommend healthy lifestyle strategies and compensatory methods as needed documented as of this encounter Procedures Procedure Name Priority Date/Time Associated Diagnosis Comments SCAN - LABS 02/17/2020 documented in this encounter Results * SCAN - LABS (02/17/2020) us Provider Scanning Final Result documented in this encounter Visit Diagnoses Not on filedocumented in this encounter Additional Health Concerns Infection Onset Date Last Indicated Resolved Time COVID: Suspected 01/19/2022 01/19/2022 01/19/2022 9:04 PM CDT documented as of this encounter Care Teams Solar Sales Specialist Relationship Specialty Start Date End Date Raymond Prescott MD [address] [facility] [address] [place] [address] PCP - General 06/19/19 05/06/21 Consuelo Villareal MD [address] [place] [address] PCP - General 05/07/21 Edelmira Balderas MD [address] [facility] [id number] [place] [address] Consulting Physician Vascular Surgery 01/25/22 documented as of this encounter
--- OUTSIDE RECORDS SUMMARY | 2024-05-24 13:40 | XMS_ITS | Encounter Summary ---
Author Organization [facility] Address [address] [place] [address]. [place] [address] [place] [address] Care Team Providers Care Metal Engineering Process Worker Name Role Phone New Referring, Provider Primary Care Provider Un available Encounter Details Date Type Department Care Team (Late st Contact Info) Description 10/03/2018 Abstract SFL CONVERSION [address] [place] [address] , Generic Conversion, Social History Tobacco Use Types Packs/Day Years Used Date Smoking Tobacco: Smoker, Current Status Unknown Sex and Gender Information Value Date Recorded Sex Assigned at Not on file Legal Sex Male 9:20 PM CDT Gender Identity Not on file Sexual Orientation Not on file documented as of this encounter Plan of Treatment Not on file documented as of this encounter Visit Diagnoses Not on filedocumented in this encounter Care Teams Metal Engineering Process Worker Relationship Specialty Start Date End Date New Referring, Provider PCP - General UNKNOWN PHYSICIAN SPECIALTY 05/24/19 documented as of this encounter
--- OUTSIDE RECORDS SUMMARY | 2024-05-24 13:40 | XMS_ITS | Encounter Summary ---
Author Organization [facility] Address [address] [place] [address] Phone Care Team Providers Care Oil Well Services Superintendent Name Role Phone Raymond Prescott MD Primary Care Provider Consuelo Villareal MD Primary Care Provider [phone] Edelmira Balderas MD Unavailable [phone] Encounter Details Date Type Department Care Team (Late st Contact Info) Description 08/15/2020 Orders Only [facility] Scanning, Provider Social History Tobacco Use Types Packs/Day Years Used Date Smoking Tobacco: Every Day Cigarettes 0.1 51 Smokeless Tobacco: Never Alcohol Use Standard Drinks/Week Comments Yes 0 (1 standard drink = 0.6 oz pur e alcohol) Sex and Gender Information Value Date Recorded Sex Assigned at Not on file 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 Author CCM COPD Care Plan Chronic Care Management No Coleen Spear, MIGUEL Note: Problem: COPD Goals: 1. Avoid hospitalization [...] Date/Time Associated Diagnosis Comments SCAN - LABS 08/15/2020 documented in this encounter Results * SCAN - LABS (08/15/2020) us Provider Scanning Final Result documented in this encounter Visit Diagnoses Not on filedocumented in this encounter Additional Health Concerns Infection Onset Date Last Indicated Resolved Time COVID: Suspected 01/19/2022 01/19/2022 01/19/2022 9:04 PM CDT documented as of this encounter Care Teams Oil Well Services Superintendent Relationship Specialty Start Date End Date Raymond Prescott MD [address] [facility] [address] [place] [address] PCP - General 06/19/19 05/06/21 Consuelo Villareal MD [address] [place] [address] PCP - General 05/07/21 Edelmira Balderas MD [address] [facility] [id number] [place] [address] Consulting Physician Vascular Surgery 01/25/22 documented as of this encounter
--- OUTSIDE RECORDS SUMMARY | 2024-05-24 13:40 | XMS_ITS | Encounter Summary ---
Author Organization [facility] Address [address] [place] [address] Phone Care Team Providers Care Switch Maker Name Role Phone Raymond Prescott MD Primary Care Provider Consuelo Villareal MD Primary Care Provider [phone] Edelmira Balderas MD Unavailable [phone] Encounter Details Date Type Department Care Team (Late st Contact Info) Description 03/03/2020 Orders Only [facility] Scanning, Provider Social History Tobacco Use Types Packs/Day Years Used Date Smoking Tobacco: Every Day Cigarettes 0.1 51 Smokeless Tobacco: Never Alcohol Use Standard Drinks/Week Comments Yes 0 (1 standard drink = 0.6 oz pur e alcohol) Sex and Gender Information Value Date Recorded Sex Assigned at Not on file 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 Gender Identity Not on file Sexual Orientation [...] Priority Date/Time Associated Diagnosis Comments SCAN - RADIOLOGY/IMAGING 03/03/2020 documented in this encounter Results * SCAN - RADIOLOGY/IMAGING (03/03/2020) Anatomical Region Laterality Modality Other us Provider Scanning Final Result documented in this encounter Visit Diagnoses Not on filedocumented in this encounter Additional Health Concerns Infection Onset Date Last Indicated Resolved Time COVID: Suspected 01/19/2022 01/19/2022 01/19/2022 9:04 PM CDT documented as of this encounter Care Teams Switch Maker Relationship Specialty Start Date End Date Raymond Prescott MD [address] [facility] [address] [place] [address] PCP - General 06/19/19 05/06/21 Consuelo Villareal MD [address] [place] [address] PCP - General 05/07/21 Edelmira Balderas MD [address] [facility] [id number] [place] [address] Consulting Physician Vascular Surgery 01/25/22 documented as of this encounter
--- OUTSIDE RECORDS SUMMARY | 2024-05-24 13:40 | XMS_ITS | Encounter Summary ---
Author Organization [facility] Address [address] [place] [address] Phone Care Team Providers Care Early Head Start Teacher Name Role Phone Raymond Prescott MD Primary Care Provider Consuelo Villareal MD Primary Care Provider [phone] Edelmira Balderas MD Unavailable [phone] Encounter Details Date Type Department Care Team (Late st Contact Info) Description 04/17/2021 Orders Only [facility] Scanning, Provider Social History Tobacco Use Types Packs/Day Years Used Date Smoking Tobacco: Every Day Cigarettes 0.1 51 Smokeless Tobacco: Never Alcohol Use Standard Drinks/Week Comments Yes 0 (1 standard drink = 0.6 oz pur e alcohol) Sex and Gender Information Value Date Recorded Sex Assigned at Not on file 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 Gender Identity Not on file Sexual Orientation [...] Date/Time Associated Diagnosis Comments SCAN - LABS 04/17/2021 documented in this encounter Results * SCAN - LABS (04/17/2021) us Provider Scanning Final Result documented in this encounter Visit Diagnoses Not on filedocumented in this encounter Additional Health Concerns Infection Onset Date Last Indicated Resolved Time COVID: Suspected 01/19/2022 01/19/2022 01/19/2022 9:04 PM CDT documented as of this encounter Care Teams Early Head Start Teacher Relationship Specialty Start Date End Date Raymond Prescott MD [address] [facility] [address] [place] [address] PCP - General 06/19/19 05/06/21 Consuelo Villareal MD [address] [place] [address] PCP - General 05/07/21 Edelmira Balderas MD [address] [facility] [id number] [place] [address] Consulting Physician Vascular Surgery 01/25/22 documented as of this encounter
--- OUTSIDE RECORDS SUMMARY | 2024-05-24 13:40 | XMS_ITS | Encounter Summary ---
Author Organization [facility] Address [address] [place] [address] Phone Care Team Providers Care Railroad Car Cleaning Supervisor Name Role Phone Raymond Prescott MD Primary Care Provider Consuelo Villareal MD Primary Care Provider [phone] Edelmira Balderas MD Unavailable [phone] Encounter Details Date Type Department Care Team (Late st Contact Info) Description 04/13/2021 Orders Only [facility] Scanning, Provider Social History Tobacco Use Types Packs/Day Years Used Date Smoking Tobacco: Every Day Cigarettes 0.1 51 Smokeless Tobacco: Never Alcohol Use Standard Drinks/Week Comments Yes 0 (1 standard drink = 0.6 oz pur e alcohol) Sex and Gender Information Value Date Recorded Sex Assigned at Not on file 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 Gender Identity Not on file Sexual Orientation [...] Date/Time Associated Diagnosis Comments SCAN - RADIOLOGY/IMAGING 04/13/2021 documented in this encounter Results * SCAN - RADIOLOGY/IMAGING (04/13/2021) Anatomical Region Laterality Modality Other us Provider Scanning Final Result documented in this encounter Visit Diagnoses Not on filedocumented in this encounter Additional Health Concerns Infection Onset Date Last Indicated Resolved Time COVID: Suspected 01/19/2022 01/19/2022 01/19/2022 9:04 PM CDT documented as of this encounter Care Teams Railroad Car Cleaning Supervisor Relationship Specialty Start Date End Date Raymond Prescott MD [address] [facility] [address] [place] [address] PCP - General 06/19/19 05/06/21 Consuelo Villareal MD [address] [place] [address] PCP - General 05/07/21 Edelmira Balderas MD [address] [facility] [id number] [place] [address] Consulting Physician Vascular Surgery 01/25/22 documented as of this encounter
--- OUTSIDE RECORDS SUMMARY | 2024-05-24 13:40 | XMS_ITS | Encounter Summary ---
Author Organization [facility] Address [address] [place] [address] Phone Care Team Providers Care Want Ad Supervisor Name Role Phone Raymond Prescott MD Primary Care Provider [phone] Consuelo Villareal MD Primary Care Provider [phone] Edelmira Balderas MD Unavailable [phone] Encounter Details Date Type Department Care Team (Late st Contact Info) Description 03/21/2020 Orders Only [facility] Scanning, Provider Social History Tobacco Use Types Packs/Day Years Used Date Smoking Tobacco: Every Day Cigarettes 0.1 51 Smokeless Tobacco: Never Alcohol Use Standard Drinks/Week Comments Yes 0 (1 standard drink = 0.6 oz pur e alcohol) Sex and Gender Information Value Date Recorded Sex Assigned at Not on file 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 Gender Identity Not on file Sexual Orientation [...] Date/Time Associated Diagnosis Comments SCAN - LABS 03/21/2020 documented in this encounter Results * SCAN - LABS (03/21/2020) us Provider Scanning Final Result documented in this encounter Visit Diagnoses Not on filedocumented in this encounter Additional Health Concerns Infection Onset Date Last Indicated Resolved Time COVID: Suspected 01/19/2022 01/19/2022 01/19/2022 9:04 PM CDT documented as of this encounter Care Teams Want Ad Supervisor Relationship Specialty Start Date End Date Raymond Prescott MD [address] [facility] [address] [place] [address] PCP - General 06/19/19 05/06/21 Consuelo Villareal MD [address] [place] [address] PCP - General 05/07/21 Edelmira Balderas MD [address] [facility] [address] [place] [address] Consulting Physician Vascular Surgery 01/25/22 documented as of this encounter
--- OUTSIDE RECORDS SUMMARY | 2024-05-24 13:40 | XMS_ITS | Clinical Summary ---
Author Organization [facility] Address [address] [place] [address]. [place] [address] [place] [address] Care Team Providers Care Automotive Light Mechanic Name Role Phone New Referring, Provider Primary Care Provider Un available Allergies No known active allergies Medications albuterol sulfate HFA 108 (90 Base) MCG/ACT inhaler Inhale 2 puffs into the lungs every 6 (six) hours as needed for Wheezing. Active allopurinol 100 MG tablet Take 100 mg by mouth daily. Active apixaban 5 MG tablet Take 5 mg by mouth 2 (two) times a day. Active atenolol 100 MG tablet Take 100 mg by mouth daily. Active betamethasone dipropionate 0.05 % cream Apply topically 2 (two) times daily. Active finasteride 5 MG tablet Take 5 mg by mouth daily. Active isosorbide mononitrate ER 30 MG 24 hr tablet Take 30 mg by mouth daily. Active latanoprost (XALATAN) 0.005 % ophthalmic solution Place 1 drop into both eyes nightly at bedtime. Active lisinopril 40 MG tablet Take 40 mg by mouth daily. Active nitroglycerin 0.[address] 0.4 mg under the tongue every 5 (five) minutes as needed for Chest Pain. Active potassium chloride CR 20 MEQ tablet Take 20 mEq by mouth daily. Active triamcinolone 0.1 % cream Apply topically 3 (three) times a day. Active vitamin B1 100 MG tablet Take 100 mg by mouth daily. Active chlordiazepoxide 25 MG capsule Take 25-50 mg by mouth every 4 (four) hours as needed for Anxiety (Shaking). Active Multiple Vitamins-Minerals (CENTRUM ADULTS OR) Take 1 tablet by mouth daily. Active aspirin EC (ASPIRIN EC) 81 MG tablet Take 81 mg by mouth daily. Active brimonidine 0.15 % ophthalmic solution Place 1 drop into both eyes 3 (three) times daily. Active folic acid 1 MG tablet Take 1 tablet (1 mg total) by mouth daily. 10 tablet 0 Active hydrocodone-aceta minophen 5-325 MG tabletIndications :Acute Pain < 7 Day Supply Take 1 tablet by mouth every 4 (four) hours as needed. Indications: Acute Pain < 7 Day Supply 30 tablet 0 Active Active Problems Problem Noted Date Diagnosed Date Closed nondisplaced fracture of medial malleolus of left tibia 05/24/2019 ETOH abuse 05/24/2019 Fall from standing, initial encounter 05/24/2019 Medial malleolar fracture 05/24/2019 Family History Medical History Relation Comments Heart Disease Father Heart Disease Maternal Aunt Heart Disease Maternal Uncle Heart Disease Mother Relation Status Comments Father Maternal Aunt Maternal Uncle Mother Social History Tobacco Use Types Packs/Day Years Used Date Smoking Tobacco: Every Day Cigarettes 1 50 Tobacco Cessation:Ready to Q uit: Yes Alcohol Use Standard Drinks/Week Comments Yes 0 (1 standard drink = 0.6 oz pure alcohol) patient unsure how many beers he drinks, states he drinks a lot Overall Financial Resource Strain (CARDIA) Answe r Date Recorded Difficulty of Paying Living Expenses Not hard at all 05/24/2019 Hunger Vital Sign Answer Date Recorded Worried About Running Out of Food in the Last Ye ar Never true 05/24/2019 Ran Out of Food in the Last Year Never true 05/24/2019 PRAPARE - Transportation Answer Date Re corded Lack of Transportation (Medical) No 05/24/2019 Lack of Transportation (Non-Medical) No 05/24/2019 Sex and Gender Information Value Date Recorded Sex Assigned at Not on file Legal Sex Male 9:20 PM CDT Gender Identity Not on file Sexual Orientation Not on file Last Filed Vital Signs Vital Sign Reading Time Taken Comments Blood Pressure 122/79 05/26/2019 12:20 PM UTILIZATION SPECIALIST Pulse 84 05/26/2019 12:20 PM UTILIZATION SPECIALIST Temperature 36.6 ??C (97.8 ??F) 05/26/2019 12:[address] Respiratory Rate 18 05/26/2019 12:20 PM UTILIZATION SPECIALIST Oxygen Saturation 98% 05/26/2019 12:20 PM UTILIZATION SPECIALIST Inhaled Oxygen Concentration - - Weight 92.1 kg (203 lb) 05/24/2019 2:21 PM UTILIZATION SPECIALIST Height 174 cm (5' 8.5 ) 05/24/2019 2:21 PM UTILIZATION SPECIALIST Body Mass Index 30.41 05/24/2019 2:21 PM UTILIZATION SPECIALIST Plan of Treatment Health Maintenance Due Date Last Done Comments Colorectal Cancer Screening Colonoscopy (10 Years) 1959 Pneumococcal Vaccine: 65+ Ye ars (1 of 2 - PCV) 1965 Pneumococcal Vaccine: Pediat rics (0 to 5 Years) and At-Risk Patients (6 to 64 Years) (1 of 2 - PCV) 1965 Hepatitis C 1977 DTaP, Tdap and Td Vaccines ( 1 - Tdap) 1978 Zoster Vaccines (1 of 2) 2009 COVID-19 Vaccine ( - 2023-2 5 season) 2023 Influenza Adult (#1) 2024 RSV Immunization or 60+ Years (1 - 1-dose 75+ series) 2034 Meningococcal B Vaccine Aged Out No l onger eligible based on patient's age to complete this topic Meningococcal Vaccine Aged Out No masood edelmira eligible based on patient's age to complete this topic RSV Immunizations Under 20 Months Aged Out No longer eligible based on patient's age to complete this topic Insurance MEDICAID MEDICARE Advance Directives * Full Code (Latest Code Status on File) Date Activated Date Inactivated Comments 05/24/2019 12:18 PM 05/26/2019 3:42 PM Care Teams Automotive Light Mechanic Relationship Specialty Start Date End Date New Referring, Provider PCP - General UNKNOWN PHYSICIAN SPECIALTY 05/24/19
--- OUTSIDE RECORDS SUMMARY | 2024-05-24 13:40 | XMS_ITS | Encounter Summary ---
Author Organization [facility] Address [address] [place] [address] Phone Care Team Providers Care Environmental Marketer Name Role Phone Raymond Prescott MD Primary Care Provider Consuelo Villareal MD Primary Care Provider [phone] Edelmira Balderas MD Unavailable [phone] Encounter Details Date Type Department Care Team (Late st Contact Info) Description 2021 Orders Only [facility] Scanning, Provider Social History Tobacco Use Types Packs/Day Years Used Date Smoking Tobacco: Every Day Cigarettes 0.1 51 Smokeless Tobacco: Never Alcohol Use Standard Drinks/Week Comments Yes 0 (1 standard drink = 0.6 oz pur e alcohol) Sex and Gender Information Value Date Recorded Sex Assigned at Not on file Legal Sex Male 1:47 AM [facility] Gender Identity Not on file Sexual Orientation [...] Date/Time Associated Diagnosis Comments SCAN - LABS 2021 documented in this encounter Results * SCAN - LABS (2021) us Provider Scanning Final Result documented in this encounter Visit Diagnoses Not on filedocumented in this encounter Additional Health Concerns Infection Onset Date Last Indicated Resolved Time COVID: Suspected 01/19/2022 01/19/2022 01/19/2022 9:04 PM CDT documented as of this encounter Care Teams Environmental Marketer Relationship Specialty Start Date End Date Raymond Prescott MD 1 [facility] [address] [place] [address] PCP - General 06/19/19 05/06/21 Consuelo Villareal MD [address] [place] [address] PCP - General 05/07/21 Edelmira Balderas MD [address] [facility] [id number] [place] [address] Consulting Physician Vascular Surgery 01/25/22 documented as of this encounter
--- OUTSIDE RECORDS SUMMARY | 2024-05-24 13:40 | XMS_ITS | Encounter Summary ---
Author Organization [facility] Address [address] [place] [address] Phone Care Team Providers Care Pump Machine Operator Name Role Phone Raymond Prescott MD Primary Care Provider Consuelo Villareal MD Primary Care Provider [phone] Edelmira Balderas MD Unavailable [phone] Encounter Details Date Type Department Care Team (Late st Contact Info) Description 11/14/2020 Orders Only [facility] Scanning, Provider Social History Tobacco Use Types Packs/Day Years Used Date Smoking Tobacco: Every Day Cigarettes 0.1 51 Smokeless Tobacco: Never Alcohol Use Standard Drinks/Week Comments Yes 0 (1 standard drink = 0.6 oz pur e alcohol) Sex and Gender Information Value Date Recorded Sex Assigned at Not on file 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 Gender Identity Not on file Sexual Orientation [...] Date/Time Associated Diagnosis Comments SCAN - LABS 11/14/2020 documented in this encounter Results * SCAN - LABS (11/14/2020) us Provider Scanning Final Result documented in this encounter Visit Diagnoses Not on filedocumented in this encounter Additional Health Concerns Infection Onset Date Last Indicated Resolved Time COVID: Suspected 01/19/2022 01/19/2022 01/19/2022 9:04 PM CDT documented as of this encounter Care Teams Pump Machine Operator Relationship Specialty Start Date End Date Raymond Prescott MD 1 [facility] [address] [place] [address] PCP - General 06/19/19 05/06/21 Consuelo Villareal MD [address] [place] [address] PCP - General 05/07/21 Edelmira Balderas MD [address] [facility] [id number] [place] [address] Consulting Physician Vascular Surgery 01/25/22 documented as of this encounter
--- OUTSIDE RECORDS SUMMARY | 2024-05-24 13:40 | XMS_ITS | Encounter Summary ---
Author Organization [facility] Address [address] [place] [address] Phone Care Team Providers Care Aviation Survival Technician Name Role Phone Johnie Ernandez MD Primary Care Provide r Raymond Prescott MD Primary Care Provider Consuelo Villareal MD Primary Care Provider Edelmira Balderas MD Unavailable [phone] Encounter Details Date Type Department Care Team (Late st Contact Info) Description 11/27/2018 Orders Only [facility] Scanning, Provider Social History Tobacco Use Types Packs/Day Years Used Date Smoking Tobacco: Every Day Cigarettes 0.1 51 Smokeless Tobacco: Never Alcohol Use Standard Drinks/Week Comments Yes 0 (1 standard drink = 0.6 oz pur e alcohol) Sex and Gender Information Value Date Recorded Sex Assigned at Not on file 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 Gender Identity Not on file Sexual [...] Date/Time Associated Diagnosis Comments SCAN - LABS 11/27/2018 documented in this encounter Results * SCAN - LABS (11/27/2018) us Provider Scanning Final Result documented in this encounter Visit Diagnoses Not on filedocumented in this encounter Additional Health Concerns Infection Onset Date Last Indicated Resolved Time COVID: Suspected 01/19/2022 01/19/2022 01/19/2022 9:04 PM CDT documented as of this encounter Care Teams Aviation Survival Technician Relationship Specialty Start Date End Date Johnie Ernandez MD [address] [place] [address] PCP - General 08/19/16 06/18/19 Raymond Prescott MD 1 [facility] [address] [place] [address] PCP - General 06/19/19 05/06/21 Consuelo Villareal MD [address] [place] [address] PCP - General 05/07/21 Edelmira Balderas MD [address] [facility] [id number] [place] [address] Consulting Physician Vascular Surgery 01/25/22 documented as of this encounter
--- OUTSIDE RECORDS SUMMARY | 2024-05-24 13:40 | XMS_ITS | Encounter Summary ---
Author Organization [facility] Address [address] [place] [address] Phone Care Team Providers Care User Support Analyst Name Role Phone Raymond Prescott MD Primary Care Provider [phone] Consuelo Villareal MD Primary Care Provider [phone] Edelmira Balderas MD Unavailable [phone] Encounter Details Date Type Department Care Team (Late st Contact Info) Description 04/11/2021 Orders Only [facility] Scanning, Provider Social History Tobacco Use Types Packs/Day Years Used Date Smoking Tobacco: Every Day Cigarettes 0.1 51 Smokeless Tobacco: Never Alcohol Use Standard Drinks/Week Comments Yes 0 (1 standard drink = 0.6 oz pur e alcohol) Sex and Gender Information Value Date Recorded Sex Assigned at Not on file 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 Gender Identity Not on file Sexual Orientation [...] Date/Time Associated Diagnosis Comments SCAN - RADIOLOGY/IMAGING 04/11/2021 documented in this encounter Results * SCAN - RADIOLOGY/IMAGING (04/11/2021) Anatomical Region Laterality Modality Other us Provider Scanning Edited Result - Final documented in this encounter Visit Diagnoses Not on filedocumented in this encounter Additional Health Concerns Infection Onset Date Last Indicated Resolved Time COVID: Suspected 01/19/2022 01/19/2022 01/19/2022 9:04 PM CDT documented as of this encounter Care Teams User Support Analyst Relationship Specialty Start Date End Date Raymond Prescott MD 1 [facility] [address] [place] [address] PCP - General 06/19/19 05/06/21 Consuelo Villareal MD [address] [place] [address] PCP - General 05/07/21 Edelmira Balderas MD [address] [facility] [id number] [place] [address] Consulting Physician Vascular Surgery 01/25/22 documented as of this encounter
--- OUTSIDE RECORDS SUMMARY | 2024-05-24 13:40 | XMS_ITS | Encounter Summary ---
Author Organization [facility] Address [address] [place] [address] Phone Care Team Providers Care Grader Meat Name Role Phone Raymond Prescott MD Primary Care Provider [phone] Consuelo Villareal MD Primary Care Provider [phone] Edelmira Balderas MD Unavailable [phone] Encounter Details Date Type Department Care Team (Late st Contact Info) Description 06/22/2019 Orders Only [facility] Scanning, Provider Social History Tobacco Use Types Packs/Day Years Used Date Smoking Tobacco: Every Day Cigarettes 0.1 51 Smokeless Tobacco: Never Alcohol Use Standard Drinks/Week Comments Yes 0 (1 standard drink = 0.6 oz pur e alcohol) Sex and Gender Information Value Date Recorded Sex Assigned at Not on file 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 Gender Identity Not on file Sexual Orientation [...] Date/Time Associated Diagnosis Comments SCAN - LABS 06/22/2019 documented in this encounter Results * SCAN - LABS (06/22/2019) us Provider Scanning Final Result documented in this encounter Visit Diagnoses Not on filedocumented in this encounter Additional Health Concerns Infection Onset Date Last Indicated Resolved Time COVID: Suspected 01/19/2022 01/19/2022 01/19/2022 9:04 PM CDT documented as of this encounter Care Teams Grader Meat Relationship Specialty Start Date End Date Raymond Prescott MD 1 [facility] [address] [place] [address] PCP - General 06/19/19 05/06/21 Consuelo Villareal MD [address] [place] [address] PCP - General 05/07/21 Edelmira Balderas MD [address] [facility] [id number] [place] [address] Consulting Physician Vascular Surgery 01/25/22 documented as of this encounter
--- OUTSIDE RECORDS SUMMARY | 2024-05-24 13:40 | XMS_ITS | Encounter Summary ---
Author Organization [facility] Address [address] [place] [address] Phone Care Team Providers Care Assessment Coordinator Name Role Phone Johnie Ernandez MD Primary Care Provide r Raymond Prescott MD Primary Care Provider Consuelo Villareal MD Primary Care Provider Edelmira Balderas MD Unavailable [phone] Encounter Details Date Type Department Care Team (Late st Contact Info) Description 01/11/2019 Orders Only [facility] Scanning, Provider Social History Tobacco Use Types Packs/Day Years Used Date Smoking Tobacco: Every Day Cigarettes 0.1 51 Smokeless Tobacco: Never Alcohol Use Standard Drinks/Week Comments Yes 0 (1 standard drink = 0.6 oz pur e alcohol) Sex and Gender Information Value Date Recorded Sex Assigned at Not on file 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 Gender Identity Not on file Sexual Orientation [...] Date/Time Associated Diagnosis Comments SCAN - RADIOLOGY/IMAGING 01/11/2019 SCAN - LABS 01/11/2019 documented in this encounter Results * SCAN - LABS (01/11/2019) us Provider Scanning Final Result * SCAN - RADIOLOGY/IMAGING (01/11/2019) Anatomical Region Laterality Modality Other us Provider Scanning Final Result documented in this encounter Visit Diagnoses Not on filedocumented in this encounter Additional Health Concerns Infection Onset Date Last Indicated Resolved Time COVID: Suspected 01/19/2022 01/19/2022 01/19/2022 9:04 PM CDT documented as of this encounter Care Teams Assessment Coordinator Relationship Specialty Start Date End Date Johnie Ernandez MD [address] [place] [address] PCP - General 08/19/16 06/18/19 Raymond Prescott MD 1 [facility] [address] [place] [address] PCP - General 06/19/19 05/06/21 Consuelo Villareal MD [address] [place] [address] PCP - General 05/07/21 Edelmira Balderas MD [address] [facility] [id number] [place] [address] Consulting Physician Vascular Surgery 01/25/22 documented as of this encounter
--- OUTSIDE RECORDS SUMMARY | 2024-05-24 13:40 | XMS_ITS | Encounter Summary ---
Author Organization [facility] Address [address] [place] [address] Phone Care Team Providers Care Rfid Developer Name Role Phone Johnie Ernandez MD Primary Care Provide r Raymond Prescott MD Primary Care Provider Consuelo Villareal MD Primary Care Provider Edelmira Balderas MD Unavailable [phone] Encounter Details Date Type Department Care Team (Late st Contact Info) Description 01/21/2019 Orders Only [facility] Scanning, Provider Social History Tobacco Use Types Packs/Day Years Used Date Smoking Tobacco: Every Day Cigarettes 0.1 51 Smokeless Tobacco: Never Alcohol Use Standard Drinks/Week Comments Yes 0 (1 standard drink = 0.6 oz pur e alcohol) Sex and Gender Information Value Date Recorded Sex Assigned at Not on file 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 Gender Identity Not on file Sexual Orientation [...] Date/Time Associated Diagnosis Comments SCAN - RADIOLOGY/IMAGING 01/21/2019 documented in this encounter Results * SCAN - RADIOLOGY/IMAGING (01/21/2019) Anatomical Region Laterality Modality Other us Provider Scanning Final Result documented in this encounter Visit Diagnoses Not on filedocumented in this encounter Additional Health Concerns Infection Onset Date Last Indicated Resolved Time COVID: Suspected 01/19/2022 01/19/2022 01/19/2022 9:04 PM CDT documented as of this encounter Care Teams Rfid Developer Relationship Specialty Start Date End Date Johnie Ernandez MD [address] [place] [address] PCP - General 08/19/16 06/18/19 Raymond Prescott MD 1 [facility] [address] [place] [address] PCP - General 06/19/19 05/06/21 Consuelo Villareal MD [address] [place] [address] PCP - General 05/07/21 Edelmira Balderas MD [address] [facility] [id number] [place] [address] Consulting Physician Vascular Surgery 01/25/22 documented as of this encounter
--- OUTSIDE RECORDS SUMMARY | 2024-05-24 13:41 | XMS_ITS | Clinical Summary ---
Author Organization [facility] Address [address] [place] [address] Care Team Providers Care Freight Receiver Name Role Phone Consuelo Villareal MD Primary Care Provider [phone] Edelmira Balderas MD Unavailable [phone] Allergies No known active allergies Medications aspirin 81 mg tablet Take 1 tablet (81 mg total) by mouth every morning Last dose 05/12/22 009 Active latanoprost (XALATAN) 0.005 % ophthalmic solution Administer 1 drop into both eyes nightly Active apixaban (ELIQUIS) 5 mg tablet Take 1 tablet (5 mg total) by mouth 2 (two) times a day. 60 tablet 1 018 Active Additional Information Patient taking differently:5 mg oral 2 times daily,Last dose 05/12/22, Informant: Self, Reported on 09/11/2022 finasteride (PROSCAR) 5 mg tablet TAKE 1 TABLET BY MOUTH EVERY DAY 30 tablet 5 018 Active Additional Information Patient taking differently: 5 mg oral Every morning, Informant: Self, Reported on 09/11/2022 PROAIR HFA 90 mcg/actuation inhaler INHALE 2 PUFFS BY MOUTH EVERY 4 TO 6 HOURS NEEDED 17 Inhaler 4 018 Active Additional Information Patient taking differently: 2 puff inhalation As needed, Indications: Bronchospasm Prevention, Informant: Self, Reported on 05/13/2022 allopurinol (ZYLOPRIM) 100 mg tablet TAKE ONE TABLET BY MOUTH DAILY 90 tablet 3 01/31/2 019 Active Additional Information Patient taking differently: 100 mg oral Every morning, Informant: Self, Reported on 09/11/2022 fluticasone-ume clidin-vilanter (TRELEGY ELLIPTA) 100-62.5-25 mcg inhaler Inhale 1 puff daily 30 each 1 Active Additional Information Patient taking differently:1 puff inhalationEvery morning, Informant: Self, Reported on 05/13/2022 furosemide (LASIX) 20 mg tablet Take 1 tablet (20 mg total) by mouth daily 30 tablet 11 Active Additional Information Patient not taking.Informant: Self, Reported on 12/15/2023 cyclobenzaprine (FLEXERIL) 5 mg tablet Take 1 tablet (5 mg total) by mouth 3 (three) times a day as needed for muscle spasms 25 tablet Active amLODIPine (NORVASC) 10 mg tablet Take 1 tablet (10 mg total) by mouth daily 30 tablet Active Additional Information Patient taking differently:10 mg oralEvery morning, Informant: Self, Reported on 09/11/2022 carvediloL (COREG) 25 mg tablet Take 1 tablet (25 mg total) by mouth 2 (two) times a day with meals [address] (PROTONIX) 40 mg EC tabletIndicatio ns:home med Take 1 tablet (40 mg total) by mouth daily 30 tablet Active Additional Information Patient taking differently:40 mg oralEvery morning, Indications: home med, Informant: Self, Reported on 09/11/2022 lactulose 0.67 gram/mL solution Take by mouth as needed Active nitroglycerin (NITROSTAT) 0.4 mg SL tablet Active polyethylene glycol (MIRALAX) 17 gram/dose powder Take 1 g by mouth every morning Active triamcinolone (KENALOG) 0.1 % cream Apply topically as needed Active betamethasone dipropionate (DEL-BETA) 0.05 % cream Apply topically as needed Active naloxone (NARCAN) 4 mg/actuation spray,non-aeros ol Administer 1 spray into affected nostril(s) as needed Active tamsulosin (FLOMAX) 0.4 mg extended release capsule Take 1 capsule (0.4 mg total) by mouth daily Active Klor-Con M20 20 mEq CR tablet Take 1 tablet (20 mEq total) by mouth Active oxyCODONE ER (OxyCONTIN) 15 mg 12 hr abuse-deterrent tablet 024 Active Cosentyx Pen pen injectorIndicat ions:Ankylosing spondylitis of multiple sites in spine (HCC) INJECT 150MG SUBCUTANEOUSLY EVERY 4 WEEKS 1 mL 2 025 Active secukinumab (COSENTYX SENSOREADY) pen injectorIndicat ions:Ankylosing spondylitis of multiple sites in spine (HCC) Inject 1 mL (150 mg total) under the skin every 28 (twenty-eight) days 3 mL 1 024 2024 Discontinued Active Problems Problem Noted Date Diagnosed Date Dissection of mesenteric artery (CMS/HCC) 2021 Assessment & Plan (01/25/2022 7:56 AM CDT): Acute onset abdominal pain with CTA showing SMA dissection. - Admitted to ICU for BP and HR control and serial abdominal exams. - Initially required nicardipine and labetalol for impulse control. Has since weaned off and started on oral regimen, see HTN. - Repeat scan with stable dissection on 01/21. - ACCS following. - Has since had BM and tolerated regular diet. BM yesterday - Continue home aspirin. Restart home eliquis today and dc Follow up with Dr. Balderas in [address] AP Umbilical hernia with gangrene 09/21/2021 Overview (09/21/2021): Added automatically from request for surgery [id number] Assessment & Plan (09/24/2021 10:42 AM CDT): Presented to ED with incarcerated umbilical hernia; patient noted hernia presence for ~3-5 yrs; no h/o incarceration Booked for OR for repair; after induction, hernia was able to be reduced. NO repair NGT to LIWS, patel, NPO, IVF, pain management 09/22: Hernia remains reduced, asities fluid noted within umbilical hernia. NGT 100ml output; no nausea; +flatus, NGT removed this AM. Patel removed today, CLD, ADAT. Pain control. 09/23: advance diet low Na solids, remains reduced. Walker for poor ambulation. CK + Mag for joint and muscle pains 09/24: Hernia remains reduced. Tolerating regular diet. Na+ 133 from 132. HDS. WBC 8.5. HgB 10.1. Walker for poor ambulation. Muscle and back pain improved from yesterday; CK 59. Plan: Discharge home today. Follow up in ACCS attending clinic to discuss elective hernia repair pending cirrhosis status. Ascites due to alcoholic cirrhosis (CMS/HCC) 02/2022 Assessment & Plan (01/23/2022 10:57 AM CDT): MELD-Na 16. Diagnosed in 01/2021. Reported daily alcohol use since he was a teenager. Last drink >1 year ago. Previously on spironolactone but stopped due to diarrhea - continue home lasix 20 mg PO. -Daily CMP, Mg, Phos. Assessment & Plan (09/22/2021 9:37 AM CDT): Hospitalized 05/07/21-05/10/21 for asities 2/2 alcoholic cirrhosis; paracentesis with 4L out at that time; MELD at that admission 22 Negative hepatitis panel Plan to FU with outpatient GI/hepatology; scheduled for 10/03/21 MELD 16 this admission Per patient, no alcoholic drink since 04/2021 Obesity 05/26/2015 Ankylosing spondylitis 03/29/2015 Assessment & Plan (01/23/2022 10:57 AM CDT): Continue home Flexeril for pain Chronic obstructive pulmonary disease (CMS/HCC) 03/01/2015 Assessment & Plan (01/23/2022 10:57 AM CDT): -Home trelegy ellipata and proair prn. Paroxysmal atrial fibrillation (CMS/HCC) 015 Assessment & Plan (01/25/2022 7:55 AM CDT): Takes atenolol and apixaban at home. Now holding atenolol for BP needs, replaced with Coreg. -restart home eliquis -cont coreg Assessment & Plan (09/24/2021 10:25 AM CDT): Home atenolol, aspirin, lipitor; restarted Eliquis held Tele monitoring 09/24: Restart home medications upon discharge today Benign prostatic hyperplasia 06/29/2009 Chronic coronary artery disease 08/03/2007 Assessment & Plan (01/23/2022 10:57 AM CDT): Hx of MD. S/p CABG in 2006 -Continue home aspirin. Back pain 08/03/2007 Benign essential hypertension 08/03/2007 Assessment & Plan (01/22/2022 3:03 PM CDT): While in ICU started on esmolol and nicardipine infusion. - Continue amlodipine 10mg daily, coreg 12.5mg BID, lasix 20mg daily. Home atenolol held for coreg use. Reportedly no longer on spironolactone due to diarrhea. - Goal SBP less than 120. Immunizations Name Administration Dates Next Due Influenza, Quadrivalent, Spl it, Preservative Free, Intramuscular 05/08/2021 Surgical History Surgery Date Site/Laterality Comments US GUIDED PARACENTESIS 05/08/2021 N/A Medical History Medical History Date Comments Myocardial infarction (HCC) Myoc ardial infarction Hyperlipidemia Hyperlipidemia Chronic obstructive pulmonar y disease (HCC) COPD Hx Other Medical CAD Hypertension Hypertension Atherosclerotic heart diseas e of [place] coronary artery without angina pectoris Arteriosclerotic coronary ar sudarshan disease - CABG x2 09/01 at [facility] to D2/LAD (Added by TW Conv) Asthma A-fib (CMS/HCC) (HCC) Cirrhosis (HCC) Lung nodules 10/2023 Family History Medical History Relation Name Comments Arthritis Father Family history of arthritis - (Added by TW Conv) Heart disease Father Family history of cardiac disorder - (Added by TW Conv) Hypertension Father Hypertension; Arthritis Mother Family history of arthritis - (Added by TW Conv) Cancer Mother Cancer; Gout Mother Family history of gout - (Added by TW Conv) Heart disease Mother Family history of cardiac disorder - (Added by TW Conv) Hypertension Mother Hypertension; Relation Name Status Comments Father Mother Social History Tobacco Use Types Packs/Day Years Used Date Smoking Tobacco: Former Cigarettes 0.5 51 0 12/15/1970 - 12/15/2021 Passive Smoke Exposure: Current Smokeless Tobacco: Never Tobacco Cessation:Counseling Given: Not Answered Alcohol Use Standard Drinks/Week Comments Yes 0 (1 standard drink = 0.6 oz pur e alcohol) AUDIT-C Answer Date Recorded Frequency of Alcohol Consumption Not on file 05/13/2022 Q2: How many drinks containi ng alcohol do you have on a typical day when you are drinking? Patient does not drink Frequency of Binge Drinking Not on file 04/28 Personal Safety Answer Date Recorded Getting School Help Needed Denies 04/14 Sex and Gender Information Value Date Recorded Sex Assigned at Not on file Legal Sex Male 1:47 AM HYDROGEOLOGY PROFESSOR Gender Identity Not on file Sexual Orientation Not on file Obstetrics History Last Filed Vital Signs Vital Sign Reading Time Taken Comments Blood Pressure 132/88 12/15/2023 2:10 PM CDT Pulse 74 12/15/2023 2:10 PM CDT Temperature 36.8 ??C (98.3 ??F) 12/15/2023 2:10 PM CD T Respiratory Rate 16 05/15/2022 5:00 PM HYDROGEOLOGY PROFESSOR Oxygen Saturation 95% 12/15/2023 2:10 PM CDT Inhaled Oxygen Concentration - - Weight 91.2 kg (201 lb) 12/15/2023 2:10 PM CDT Height 172.7 cm (5' 8 ) 12/15/2023 2:10 PM CDT Body Mass Index 30.56 12/15/2023 2:10 PM CDT Plan of Treatment Health Maintenance Due Date Last Done Comments Depression Screening 1959 Prostate Cancer Screening-PSA 1959 DTaP/Tdap/Td Vaccine (1 - Tdap) 1970 Hepatitis B Screening 1977 Lung Cancer Screening 2009 Zoster Vaccine (1 of 2) 2009 Fall Risk Assessment 05/13/2023 05/13/2022 Colon Cancer Screening-Colonoscopy 05/31/2023 05/31/2013 Covid-19 Vaccine (3 - 2023-2 5 season) 2023 11/15/2020, 10/25/2020 Influenza Vaccine (#1) 2023 2, 05/08/2021, 01/28/2020, Additional history exists Abdominal Aortic Aneurysm (A AA) Screen 02/02/2024 06/11/2022, 04/12/2022, 01/21/2022, Additional history exists Pneumococcal vaccine 65+ (3 of 3 - PPSV23 or PCV20) 02/02/2024 03/19/2016, 02/16/2008 Well Visit 65+ 02/02/2024 Colon Cancer Screening-CT Colonography Discontinued 05/31/2013 Colon Cancer Screening-DNA Stool Discontinued 05/31/19 Colon Cancer Screening-FIT Discontinued 05/31/2013 Colon Cancer Screening-Sigmoidoscopy Discontinued 05/31/2013 Hepatitis C Screening Completed 05/09/2021 , 02/23/2016, 08/19/2014 Goals Goal Patient Goal Type Associated Problems Recent Progress Patient-Stated? Author CCM COPD Care Plan Chronic Care Management Coleen Parrish, RN Note: Problem: COPD Goals: 1. Avoid [...] lifestyle strategies and compensatory methods as needed Medical Devices Implanted Type Area Construction Management Assistant Device Identifier Shelf Expiration Date Model / Serial / Lot kidthing/SEC Watch&Masterseek Trufill Glue 1gm Nbca [id number] - [id number] Implanted:Qty: 1 on 05/15/2022 at [facility] kidthing/SEC Watch&Masterseek 02/26/2024 [id number] / / [id number] [employer] Angio-Seal Vip 6fr Closere Device [id number] - [id number] Implanted:Qty: 1 on 05/15/2022 at [facility] [employer] 02/25/2023 [id number] / / [id number] Procedures Procedure Name Priority Date/Time Associated Diagnosis Comments CTA ABDOMEN PELVIS W WO CONTRAST Schedule Routine, Read Routine (OP Routine) 06/11/2022 1:10 PM HYDROGEOLOGY PROFESSOR Aneurysm of visceral artery (CMS/HCC) (HCC) HEPATITIS C ANTIBODY Routine 05/09/2021 3:08 PM HYDROGEOLOGY PROFESSOR COLONOSCOPY REPORT 05/31/2013 from Last 3 Months or Most Recently Relevant to Health Maintenance Results * CTA Abdomen Pelvis (06/11/2022 1:10 PM HYDROGEOLOGY PROFESSOR) Anatomical Region Laterality Modality Body N/A Computed Tomogra phy 06/11/2022 2:20 PM HYDROGEOLOGY PROFESSOR Impressions 06/11/2022 2:21 PM HYDROGEOLOGY PROFESSOR 1. ??Decreased size of a superior pancreaticoduodenal arcade pseudoaneurysm status post glue embolization with a residual 6 mm pseudoaneurysm in the pancreatic head. 2. ??Unchanged dissection of the superior mesenteric artery with occlusion of a branch point with distal reconstitution. Dictated by: Lucila Martines M.D. The radiology attending physician has personally reviewed this study, and had reviewed and/or edited this written report and agrees with it. Electronically signed by: Homa Neal M.D. Narrative 06/11/2022 2:21 PM HYDROGEOLOGY PROFESSOR EXAMINATION: CTA ABDOMEN PELVIS HISTORY: 62-year-old with proximal superior mesenteric artery dissection and distal branch occlusion and pseudoaneurysm of the pancreaticoduodenal artery status post embolization on 05/15/2022. TECHNIQUE: ??Transaxial computed tomographic images of the abdomen and pelvis ??were obtained with intravenous contrast according to the standard protocol after the uneventful administration of 93 mL Opti-Ray 350 intravenous contrast. Vascular 3D images were generated on a dedicated workstation and also reviewed. COMPARISON: CT 04/12/2022 FINDINGS: ?? Vascular findings: There is decreased prominence of a superior pancreaticoduodenal arcade pseudoaneurysm status post glue embolization with a residual 6 mm pseudoaneurysm in the pancreatic head (series 9, image 192). There is a residual dissection of the superior mesenteric artery with unchanged occlusion of the branch point (series 9, 213 with distal reconstitution. Unchanged moderate narrowing of the proximal superficial femoral artery with 50% narrowing due to noncalcified plaque. Nonvascular findings: The lung bases are clear. ??Heart size is normal. ??No pericardial effusion. ??Partially imaged sternotomy wires. ??Small hiatal hernia. Clips are seen in the anterior mediastinum. No focal liver lesion. ??The gallbladder is normal. ??No biliary duct dilation. ??Pancreas is normal. ??Calcified splenic granuloma. The adrenal glands are normal. ??The kidneys enhance symmetrically. Hypoattenuating lesion in the lower pole of the left kidney is too small to characterize likely represents a cyst. ??No mesenteric retroperitoneal lymphadenopathy. ??The urinary bladder is unremarkable. ??Prostate is normal. ??No pelvic free fluid or lymphadenopathy. ??Client diverticulosis without diverticulitis. ??The appendix is normal. ??The small bowel is normal course and caliber. The stomach is normal. ??No acute fracture suspicious osseous lesion. Procedure Note Homa Neal MD - 06/11/2022 EXAMINATION: CTA ABDOMEN PELVIS HISTORY: 62-year-old with proximal superior mesenteric artery dissection and distal branch occlusion and pseudoaneurysm of the pancreaticoduodenal artery status post embolization on 05/15/2022. TECHNIQUE: Transaxial computed tomographic images of the abdomen and pelvis were obtained with intravenous contrast according to the standard protocol after the uneventful administration of 93 mL Opti-Ray 350 intravenous contrast. Vascular 3D images were generated on a dedicated workstation and also reviewed. COMPARISON: CT 04/12/2022 FINDINGS: Vascular findings: There is decreased prominence of a superior pancreaticoduodenal arcade pseudoaneurysm status post glue embolization with a residual 6 mm pseudoaneurysm in the pancreatic head (series 9, image 192). There is a residual dissection of the superior mesenteric artery with unchanged occlusion of the branch point (series 9, 213 with distal reconstitution. Unchanged moderate narrowing of the proximal superficial femoral artery with 50% narrowing due to noncalcified plaque. Nonvascular findings: The lung bases are clear. Heart size is normal. No pericardial effusion. Partially imaged sternotomy wires. Small hiatal hernia. Clips are seen in the anterior mediastinum. No focal liver lesion. The gallbladder is normal. No biliary duct dilation. Pancreas is normal. Calcified splenic granuloma. The adrenal glands are normal. The kidneys enhance symmetrically. Hypoattenuating lesion in the lower pole of the left kidney is too small to characterize likely represents a cyst. No mesenteric retroperitoneal lymphadenopathy. The urinary bladder is unremarkable. Prostate is normal. No pelvic free fluid or lymphadenopathy. Client diverticulosis without diverticulitis. The appendix is normal. The small bowel is normal course and caliber. The stomach is normal. No acute fracture suspicious osseous lesion. IMPRESSION: 1. Decreased size of a superior pancreaticoduodenal arcade pseudoaneurysm status post glue embolization with a residual 6 mm pseudoaneurysm in the pancreatic head. 2. Unchanged dissection of the superior mesenteric artery with occlusion of a branch point with distal reconstitution. Dictated by: Lucila Martines M.D. The radiology attending physician has personally reviewed this study, and had reviewed and/or edited this written report and agrees with it. Electronically signed by: Homa Neal M.D. Dilip Lora MD IMG CT PROCEDURES Final Result * Hepatitis C antibody (05/09/2021 3:08 PM HYDROGEOLOGY PROFESSOR) Hep C Ab Nonreactive Nonreactive [facility] Comment:Antibodies to HCV no t detected. Does NOT exclude the possibility of recent exposure to HCV. Blood 05/09/2021 3:08 PM HYDROGEOLOGY PROFESSOR 05/09/2021 3:38 PM HYDROGEOLOGY PROFESSOR Pratima Morales MD LAB MICROBIOLOGY - GENERAL ORD ERABLES Edited Result - Final [facility] Department [place] [address] * COLONOSCOPY REPORT (05/31/2013) Anatomical Region Laterality Modality Other Narrative 05/31/2013 Ordered by an unspecified provider. Historical Provider GI PROCEDURE ORDERABLES F inal Result from Last 3 Months or Most Recently Relevant to Health Maintenance Insurance MEDICARE IDPA MEDICARE IDPA [facility] MEDICARE GENERIC RISK OTHER [facility] [place] [facility] MEDICARE [facility] Advance Directives For more information, please contact: [phone] * Full Code (Latest Code Status on File) Date Activated Date Inactivated Comments 01/20/2022 6:40 AM 01/25/2022 2:33 PM * Full Code Date Activated Date Inactivated Comments 09/22/2021 4:08 AM 09/24/2021 6:55 PM * Full Code Date Activated Date Inactivated Comments 05/08/2021 5:39 PM 05/10/2021 9:30 PM Care Teams Freight Receiver Relationship Specialty Start Date End Date Consuelo Villareal MD [address] [place] [address] PCP - General 05/07/21 Edelmira Balderas MD [id number] [place] [address] Consulting Physician Vascular Surgery 01/25/22
--- OUTSIDE RECORDS SUMMARY | 2024-05-24 13:41 | XMS_ITS | Referral Summary ---
Author Organization [facility] Address [address] [place] [address] Care Team Providers Care Bagger Meat Name Role Phone Consuelo Villareal MD Primary Care Provider [phone] Hardik Frye MD Unavailable + [phone] Carlo Penaloza MD Unavailable [phone] Source Comments [facility],non-owned Affiliates and Associated Physician Practices is amultiple site organization consisting of ambulatory clinics and hospital sitesin [place], [place], [place] and [place]. This disclosure is being madepursuant to the Care Everywhere program and may not contain all information available regarding this patient. Last updated 18.[facility] Encounters Date Type Department Care Team Description 05/03/2024 Travel 04/09/2024 Refill [facility] - GI [address] [place] [address] Clementine Veras APRN-ELEMENTARY SCHOOL PROFESSIONAL Med Change Request 03/17/2024 Refill [facility] - GI [address] [place] [address] Clementine Veras, FOREST PATROLMAN-ELEMENTARY SCHOOL PROFESSIONAL Med Change Request from Last 3 Months Allergies No known active allergies Medications * Be aware that medications may not be up to date on this document. Alwaysverify current medications with the patient. Medication Sig Dispensed Refills Start Date End Date Status finasteride (PROSCAR) 5 MG tablet Take 1 (one) tablet by mouth once daily 08/04/2021 Active allopurinol (ZYLOPRIM) 100 MG tablet Take 1 (one) tablet by mouth once daily Active nitroGLYCERIN (NITROSTAT) 0.4 MG tablet 03/08/2021 Active pantoprazole EC (PROTONIX) 40 MG tablet Take 1 (one) tablet by mouth once daily 08/05/2021 Active albuterol HFA (PROVENTIL; VENTOLIN; PROAIR) 108 (90 Base) MCG/ACT inhaler Inhale 2 (two) puffs by mouth every 6 hours as needed Active cyclobenzaprine (FLEXERIL) 5 MG tablet Take 1 (one) tablet by mouth 3 times daily as needed 11/01/2021 Active TRELEGY ELLIPTA 100-62.5-25 MCG/INH Inhale 1 (one) puff by mouth once daily 10/30/2021 Active polyethylene glycol 3350 (MIRALAX) 17 GM/SCOOP powder Take 1 (one) g by mouth once daily 05/10/2021 Active latanoprost (XALATAN) 0.005 % ophthalmic solution Instill 1 (one) drop into both eyes once daily Active apixaban (ELIQUIS) 5 MG tablet Take 1 (one) tablet by mouth 2 times daily Active amLODIPine (Norvasc) 10 MG tablet Take 1 (one) tablet by mouth once daily Active aspirin EC (Ecotrin) 81 MG tablet Take 1 (one) tablet by mouth once daily Active carvedilol (Coreg) 25 MG tablet Take 1 (one) tablet by mouth 2 times daily with morning and evening meal Active adalimumab (Humira) 40 MG/0.4ML injection Inject 0.4 mL subcutaneously every 14 days 06/14/2022 Active oxyCODONE HCl 15 MG TABA Take by mouth 2 times daily Active tamsulosin (Flomax) 0.4 MG capsule Take 1 (one) capsule by mouth once daily 10/07/2023 Active lactulose (Chronulac) 10 GM/15ML solutionIndicatio ns:Alcoholic cirrhosis of liver without ascites (HCC) TAKE 15 ML BY MOUTH ONCE DAILY NEEDED FOR CONSTIPATION 1419 mL 1 04/09/2024 10/15/2024 Active Active Problems Problem Noted Date Diagnosed Date Alcoholic cirrhosis of liver with ascites 2021 Social History Tobacco Use Types Packs/Day Years Used Date Smoking Tobacco: Every Day Cigarettes 0.3 55 Smokeless Tobacco: Never Tobacco Cessation:Ready to Q uit: Not Asked; Counseling Given: Not Answered Alcohol Use Standard Drinks/Week Comments Not Currently 0 (1 standard drink = 0.6 oz pur e alcohol) quit Mar 2021 Sex and Gender Information Value Date Recorded Sex Assigned at Not on file Gender Identity Not on file Sexual Orientation Not on file Last Filed Vital Signs Vital Sign Reading Time Taken Comments Blood Pressure 122/88 10/28/2023 3:16 PM CDT Pulse 72 10/28/2023 3:16 PM CDT Temperature 36.7 ??C (98.1 ??F) 02/10/2023 1:57 PM CD T Respiratory Rate 18 02/10/2023 1:57 PM CDT Oxygen Saturation 96% 10/28/2023 3:16 PM CDT Inhaled Oxygen Concentration - - Weight 90.7 kg (200 lb) 10/28/2023 3:16 PM CDT Height 175.3 cm (5' 9 ) 10/28/2023 3:16 PM CDT Body Mass Index 29.53 10/28/2023 3:16 PM CDT Plan of Treatment Upcoming Encounters Date Type Department Care Team (Late st Contact Info) Description 07/26/2024 2:00 PM CDT Appointment [facility] [address] [place] [address] Clementine Veras, FOREST PATROLMAN-ELEMENTARY SCHOOL PROFESSIONAL [address] [place] [address] [address] [place] [address] 07/26/2024 3:00 PM CDT Office Visit [facility] - GI [address] [facility], [place] [phone] Clementine Veras, FOREST PATROLMAN-ELEMENTARY SCHOOL PROFESSIONAL [address] [facility] [address] DIV OF GASTROENTEROLOGY [place], [place] [id number] Goals Goal Patient Goal Type Associated Problems Recent Progress Patient-Stated? Author Medication Management General On track( 023 2:03 PM CDT) Cynthia Mora RN Note: Expected end date: ongoing Interventions: Take all medications as prescribed Procedures Procedure Name Priority Date/Time Associated Diagnosis Comments COMPREHENSIVE METABOLIC PANEL Routine 02/10/2023 3:03 PM CDT Alcoholic cirrhosis of liver with ascites (HCC) from Last 3 Months or Most Recently Relevant to Health Maintenance Results * (ABNORMAL) COMPREHENSIVE METABOLIC PANEL (02/10/2023 3:03 PM CDT) BUN 12 7 - 26 mg/dL 02/10/2023 4:13 PM [facility] Creatinine 0.98 0.71 - 1.16 mg/dL 02/10/2023 4:13 PM [facility] Sodium 139 136 - 145 mmol/L 02/10/2023 4:13 PM [facility] Potassium 4.5 3.5 - 4.5 mmol/L 02/10/2023 4:13 PM [facility] Chloride 104 98 - 107 mmol/L 02/10/2023 4:13 PM [facility] CO2 27 22 - 29 mmol/L 02/10/2023 4:13 PM [facility] Glucose 92 70 - 115 mg/dL 02/10/2023 4:13 PM [facility] Calcium 9.6 8.4 - 10.2 mg/dL 02/10/2023 4:13 PM [facility] Protein Total 8.1 6.0 - 8.3 g/dL 02/10/2023 4:13 PM [facility] Albumin 3.9 3.4 - 5.0 g/dL 02/10/2023 4:13 PM [facility] Bilirubin Total 0.7 0.2 - 1.2 mg/dL 02/10/2023 4:13 PM [facility] Alkaline Phosphatase 110 40 - 150 U/L 02/10/2023 4:13 PM [facility] ALT 8 5 - 55 U/L 02/10/2023 4:13 PM [facility] AST 16 5 - 34 U/L 02/10/2023 4:13 PM [facility] Anion Gap 8 6 - 16 02/10/2023 4:13 PM [facility] BUN/Creatinine Ratio 12 7 - 23 02/10/2023 4:13 PM CDT [facility] Osmolality Calculated 287 275 - 295 mOsm/kg 02/10/2023 4:13 PM CDT [facility] Albumin/Globulin Ratio 0.9(L) 1.1 - 2.3 02/10/2023 4:13 PM CDT [facility] eGFR by CKD-EPI 86(L) >=90 mL/min/1.7 3 m2 02/10/2023 4:13 PM CDT [facility] Blood BLOOD SPECIMEN / Unknown Lab Venipuncture / Unknown 02/10/2023 3:03 PM CDT 02/10/2023 3:45 PM CDT Clementine Veras FOREST PATROLMAN-ELEMENTARY SCHOOL PROFESSIONAL LAB - CHEMI STRY ORDERABLES [facility] [address] [place] [address], [facility] [phone] from Last 3 Months or Most Recently Relevant to Health Maintenance Care Teams Bagger Meat Relationship Specialty Start Date End Date Consuelo Villareal MD [address] [place] [address] PCP - General Internal Medicine 10/02/21 Hardik Frye MD [address] [place] [address] Gastroenterology 10/09/21 Carlo Penaloza MD [address] [id number] [place] [address] General Surgery 01/31/22
--- OUTSIDE RECORDS SUMMARY | 2024-05-24 13:41 | XMS_ITS | Referral Summary ---
Author Organization [facility] Address [address] [place] [address] Care Team Providers Care Chamber [employer] Division Manager Name Role Phone Consuelo Villareal MD Primary Care Provider [phone] Edelmira Balderas MD Unavailable Allergies No known active allergies Medications aspirin [...] (09/21/2021): Added automatically from request for surgery [id number] Assessment & Plan (09/24/2021 10:42 AM CDT): [...] Plan (01/23/2022 10:57 AM CDT): Hx of [place]. S/p CABG in 2006 -Continue home aspirin. [...] Quadrivalent, Spl it, Preservative Free, Intramuscular 05/08/2021 Social History Tobacco Use Types Packs/Day Years [...] on file Legal Sex Male 1:47 AM BRAIDED BAND ASSEMBLER Gender Identity Not on file Sexual Orientation Not on file Last Filed Vital Signs Vital Sign Reading Time Taken Comments Blood Pressure 132/88 12/15/2023 2:10 PM CDT Pulse 74 12/15/2023 2:10 PM CDT Temperature 36.8 ??C (98.3 ??F) 12/15/2023 2:10 PM CD T Respiratory Rate 16 05/15/2022 5:00 PM BRAIDED BAND ASSEMBLER Oxygen Saturation 95% 12/15/2023 2:10 PM CDT Inhaled Oxygen Concentration - - Weight 91.2 kg (201 lb) 12/15/2023 2:10 PM CDT Height 172.7 cm (5' 8 ) 12/15/2023 2:10 PM CDT Body Mass Index 30.56 12/15/2023 2:10 PM CDT Plan of Treatment Not on file Goals Goal Patient Goal Type Associated Problems [...] as needed Medical Devices Implanted Type Area Commercial Development Manager Device Identifier Shelf Expiration Date Model / Serial / Lot [employer] Trufill Glue 1gm [facility] [id number] - [id number] Implanted:Qty: 1 on 05/15/2022 at [facility] [employer] 02/26/2024 [id number] / / [id number] [employer] Angio-Seal Vip 6fr Closere Device [id number] - [id number] Implanted:Qty: 1 on 05/15/2022 at [facility] [employer] 02/25/2023 [id number] / / [id number] Procedures Procedure Name Priority Date/Time Associated Diagnosis Comments CTA ABDOMEN PELVIS W WO CONTRAST Schedule Routine, Read Routine (OP Routine) 06/11/2022 1:10 PM BRAIDED BAND ASSEMBLER Aneurysm of visceral artery (CMS/HCC) (HCC) HEPATITIS C ANTIBODY Routine 05/09/2021 3:08 PM BRAIDED BAND ASSEMBLER COLONOSCOPY REPORT 05/31/2013 from Last 3 Months or Most Recently Relevant to Health Maintenance Results * CTA Abdomen Pelvis (06/11/2022 1:10 PM BRAIDED BAND ASSEMBLER) Anatomical Region Laterality Modality Body N/A Computed Tomogra phy 06/11/2022 2:20 PM BRAIDED BAND ASSEMBLER Impressions 06/11/2022 2:21 PM BRAIDED BAND ASSEMBLER 1. ??Decreased size of a superior pancreaticoduodenal [...] Homa Neal M.D. Narrative 06/11/2022 2:21 PM BRAIDED BAND ASSEMBLER EXAMINATION: CTA ABDOMEN PELVIS HISTORY: 62-year-old with [...] * Hepatitis C antibody (05/09/2021 3:08 PM BRAIDED BAND ASSEMBLER) Hep C Ab Nonreactive Nonreactive [facility] Comment:Antibodies to HCV no t detected. Does NOT exclude the possibility of recent exposure to HCV. Blood 05/09/2021 3:08 PM BRAIDED BAND ASSEMBLER 05/09/2021 3:38 PM BRAIDED BAND ASSEMBLER Pratima Morales MD LAB MICROBIOLOGY - GENERAL ORD ERABLES Edited Result - Final [facility] Department [place] [address] * COLONOSCOPY REPORT (05/31/2013) Anatomical Region Laterality Modality Other Narrative 05/31/2013 Ordered by an unspecified provider. Historical Provider GI PROCEDURE ORDERABLES F inal Result from Last 3 Months or Most Recently Relevant to Health Maintenance Insurance MEDICARE [place] MEDICARE ID[place] MANAGED MEDICARE GENERIC RISK OTHER [facility] [place] [facility] MEDICARE [facility] Advance Directives For more information, please contact: [phone] * Full Code (Latest Code Status on File) Date Activated Date Inactivated Comments 01/20/2022 6:40 AM 01/25/2022 2:33 PM * Full Code Date Activated Date Inactivated Comments 09/22/2021 4:08 AM 09/24/2021 6:55 PM * Full Code Date Activated Date Inactivated Comments 05/08/2021 5:39 PM 05/10/2021 9:30 PM Care Teams Chamber [employer] Division Manager Relationship Specialty Start Date End Date Consuelo Villareal MD [address] [place] [address] PCP - General 05/07/21 Edelmira Balderas MD [id number] [place] [address] Consulting Physician Vascular Surgery 01/25/22
--- OUTSIDE RECORDS SUMMARY | 2024-05-24 13:41 | XMS_ITS | Clinical Summary ---
Author Organization [facility] Address [address] [place] [address] Care Team Providers Care Design Transferrer Name Role Phone Consuelo Villareal MD Primary Care Provider [phone] Hardik Frye MD Unavailable [phone] Carlo Penaloza MD Unavailable [phone] Source Comments [facility],non-owned Affiliates and Associated Physician Practices is amultiple site organization consisting of ambulatory clinics and hospital sitesin [place], [place] and [place]. This disclosure is being madepursuant to the Care Everywhere program and may not contain all information available regarding this patient. Last updated 18.[facility] [employer] Allergies No known active allergies Medications * [...] Alcoholic cirrhosis of liver with ascites 2021 Encounters Date Type Department Care Team Description 05/03/2024 Travel 04/09/2024 Refill [facility] - [address] [place] [phone] Clementine Veras APRN-MANAGER MERCHANDISING Med Change Request 03/17/2024 Refill [facility] - [address] [place] [phone] Clementine Veras, ANALYTICAL CHEMIST-MANAGER MERCHANDISING Med Change Request from Last 3 Months Family History Medical History Relation Name Comments Cancer - Pancreatic Brother Relation Name Status Comments Brother Social History Tobacco Use Types Packs/Day Years [...] 36.7 ??C (98.1 ??F) 02/10/2023 1:57 PM C DT Respiratory Rate 18 02/10/2023 1:57 PM CDT [...] Info) Description 07/26/2024 2:00 PM CDT Appointment [facility] [address] [place] [phone] Clementine Veras, ANALYTICAL CHEMIST-MANAGER MERCHANDISING [address] [place] [address] [address] [place] [address] 07/26/2024 3:00 PM CDT Office Visit [facility] - GI [address] [place] [address], [place] [phone] Clementine Veras, ANALYTICAL CHEMIST-MANAGER MERCHANDISING [address] [place] [address] [address] [place] [address] Health Maintenance Due Date Last Done Comments COLOGUARD (AGES 45-75) - COLON CA SCREENING 1959 COLON MONITORING 1959 COLONOSCOPY - COLON CA SCREENING 1959 CT COLONOGRAPHY - COLON CA SCREENING 1959 Colorectal Cancer Screening 1959 FIT - COLON CA SCREENING 1959 FLEX SIG - COLON CA SCREENING 1959 LIPID TESTING 1959 MEDICARE AWV ? 12 MONTHS 1959 HIV SCREENING 1974 HEPATITIS C SCREENING 01/27/1977 DTAP/TDAP/TD VACCINES (1 - Tdap) 1978 PNEUMOCOCCAL VACCINE 50+ (1 of 2 - PCV) 1978 ZOSTER VACCINE (1 of 2) 2009 HEPATITIS B VACCINE (1 of 3 - Risk 3-dose series) 2019 Respiratory Syncytial Virus (RSV) Vaccine Pt: or over 60 yrs (1 - Risk 60-74 years 1-dose series) 2019 COVID-19 VACCINE (1 - season) 2023 INFLUENZA VACCINE (#1) 2023 05/08/2021 AAA SCREENING 02/02/2024 DEPRESSION SCREENING 04/28/2024 SCREENING FOR DIABETES 02/10/2026 , 08/08/2022, 11/08/2021, Additional history exists HIB VACCINE Aged Out No longer eligi ble based on patient's age to complete this topic HPV VACCINE Aged Out No longer eligi ble based on patient's age to complete this topic MENINGOCOCCAL (Group B) VACCINE Aged Out No longer eligible based on patient's age to complete this topic MENINGOCOCCAL VACCINE Aged Out No masood edelmira eligible based on patient's age to complete this topic Goals Goal Patient Goal Type Associated Problems Recent Progress Patient-Stated? Author Medication Management General On track( 023 2:03 PM CDT) No Cynthia Valdez, RN Note: Expected end date: ongoing Interventions: [...] 7 - 26 mg/dL 02/10/2023 4:13 PM [facility] Creatinine 0.98 0.71 - 1.16 mg/dL 02/10/2023 4:13 PM [facility] Sodium 139 136 - 145 mmol/L 02/10/2023 4:13 PM [facility] Potassium 4.5 3.5 - 4.5 mmol/L 02/10/2023 4:13 PM [facility] Chloride 104 98 - 107 mmol/L 02/10/2023 4:13 PM [facility] CO2 27 22 - 29 mmol/L 02/10/2023 4:13 PM [facility] Glucose 92 70 - 115 mg/dL 02/10/2023 4:13 PM [facility] Calcium 9.6 8.4 - 10.2 mg/dL 02/10/2023 4:13 PM [facility] Protein Total 8.1 6.0 - 8.3 g/dL 02/10/2023 4:13 PM [facility] Albumin 3.9 3.4 - 5.0 g/dL 02/10/2023 4:13 PM [facility] Bilirubin Total 0.7 0.2 - 1.2 mg/dL 02/10/2023 4:13 PM [facility] Alkaline Phosphatase 110 40 - 150 U/L 02/10/2023 4:13 PM [facility] ALT 8 5 - 55 U/L 02/10/2023 4:13 PM [facility] AST 16 5 - 34 U/L 02/10/2023 4:13 PM [facility] Anion Gap 8 6 - 16 02/10/2023 4:13 PM [facility] BUN/Creatinine Ratio 12 7 - 23 02/10/2023 4:13 PM [facility] Osmolality Calculated 287 275 - 295 mOsm/kg 02/10/2023 4:13 PM [facility] Albumin/Globulin Ratio 0.9(L) 1.1 - 2.3 02/10/2023 4:13 PM [facility] eGFR by CKD-EPI 86(L) >=90 mL/min/1.7 3 m2 02/10/2023 4:13 PM CDT [facility] Blood BLOOD SPECIMEN / Unknown Lab Venipuncture / Unknown 02/10/2023 3:03 PM CDT 02/10/2023 3:45 PM CDT Clementine Veras ANALYTICAL CHEMIST-MANAGER MERCHANDISING LAB - CHEMI STRY ORDERABLES [facility] [address] [place] [address], [facility] [phone] from Last 3 Months or Most Recently Relevant to Health Maintenance Care Teams Design Transferrer Relationship Specialty Start Date End Date Consuelo Villareal MD [address] [place] [phone] PCP - General Internal Medicine 10/02/21 Hardik Frye MD [address] [place] [address] Gastroenterology 10/09/21 Carlo Penaloza MD [address] [phone] [place] [address] General Surgery 01/31/22
--- OUTSIDE RECORDS SUMMARY | 2024-05-24 13:41 | XMS_ITS | Patient Health Summary ---
Author Organization [facility] Address [address] [place] [address] Care Team Providers Care Site Interpreter Name Role Phone Consuelo Villareal MD Primary Care Provider [phone] Hardik Frye MD Unavailable [phone] Carlo Penaloza MD Unavailable [phone] Note from [facility],non-owned Affiliates and Associated Physician Practices is amultiple site organization consisting of ambulatory clinics and hospital sitesin [place], [place], [place] and [place]. This disclosure is being madepursuant to the Care Everywhere program and may not contain all information available regarding this patient. Last updated 18.[facility] Allergies No known active allergies Medications * Be aware that medications may not be up to date on this document. Alwaysverify current medications with the patient. * finasteride (PROSCAR) 5 MG tablet(Started 08/04/2021) Take 1 (one) tablet by mouth once daily * allopurinol (ZYLOPRIM) 100 MG tablet Take 1 (one) tablet by mouth once daily * nitroGLYCERIN (NITROSTAT) 0.4 MG tablet(Started 03/08/2021) * pantoprazole EC (PROTONIX) 40 MG tablet(Started 08/05/2021) Take 1 (one) tablet by mouth once daily * albuterol HFA (PROVENTIL; VENTOLIN; PROAIR) 108 (90 Base) MCG/ACT inhaler Inhale 2 (two) puffs by mouth every 6 hours as needed * cyclobenzaprine (FLEXERIL) 5 MG tablet(Started 11/01/2021) Take 1 (one) tablet by mouth 3 times daily as needed * TRELEGY ELLIPTA 100-62.5-25 MCG/INH(Started 10/30/2021) Inhale 1 (one) puff by mouth once daily * polyethylene glycol 3350 (MIRALAX) 17 GM/SCOOP powder(Started 05/10/2021) Take 1 (one) g by mouth once daily * latanoprost (XALATAN) 0.005 % ophthalmic solution Instill 1 (one) drop into both eyes once daily * apixaban (ELIQUIS) 5 MG tablet Take 1 (one) tablet by mouth 2 times daily * amLODIPine (Norvasc) 10 MG tablet Take 1 (one) tablet by mouth once daily * aspirin EC (Ecotrin) 81 MG tablet Take 1 (one) tablet by mouth once daily * carvedilol (Coreg) 25 MG tablet Take 1 (one) tablet by mouth 2 times daily with morning and evening meal * adalimumab (Humira) 40 MG/0.4ML injection(Started 06/14/2022) Inject 0.4 mL subcutaneously every 14 days * oxyCODONE HCl 15 MG TABA Take by mouth 2 times daily * tamsulosin (Flomax) 0.4 MG capsule(Started 10/07/2023) Take 1 (one) capsule by mouth once daily * lactulose (Chronulac) 10 GM/15ML solution(Started 04/09/2024) TAKE 15 ML BY MOUTH ONCE DAILY NEEDED FOR CONSTIPATION 1 refill by 04/09/2025 Active Problems Problem Noted Date Diagnosed Date [...] Mass Index 29.53 10/28/2023 3:16 PM CDT Procedures * US ABDOMEN LIMITED(Performed 10/28/2023) Performed for Alcoholic cirrhosis of liver with ascites (HCC) * PT-INR [facility](Performed 02/10/2023) Performed for Alcoholic cirrhosis of liver with ascites (HCC) * ALPHA FETOPROTEIN BLOOD TUMOR MARKER(Performed 02/10/2023) Performed for Alcoholic cirrhosis of liver with ascites (HCC) * COMPREHENSIVE METABOLIC PANEL(Performed 02/10/2023) Performed for Alcoholic cirrhosis of liver with ascites (HCC) * CBC W AUTO DIFFERENTIAL(Performed 02/10/2023) Performed for Alcoholic cirrhosis of liver with ascites (HCC) * US ABDOMEN LIMITED(Performed 02/10/2023) Performed for Alcoholic cirrhosis of liver with ascites (HCC) * PT-INR [facility](Performed 08/08/2022) Performed for Alcoholic cirrhosis of liver with ascites (HCC) * PHOSPHATIDYLETHANOL (PETH)(Performed 08/08/2022) Performed for Alcoholic cirrhosis of liver with ascites (HCC) * COMPREHENSIVE METABOLIC PANEL(Performed 08/08/2022) Performed for Alcoholic cirrhosis of liver with ascites (HCC) * CBC W AUTO DIFFERENTIAL(Performed 08/08/2022) Performed for Alcoholic cirrhosis of liver with ascites (HCC) * ALPHA FETOPROTEIN BLOOD TUMOR MARKER(Performed 08/08/2022) Performed for Alcoholic cirrhosis of liver with ascites (HCC) * US ABDOMEN LIMITED(Performed 08/08/2022) Performed for Alcoholic cirrhosis of liver with ascites (HCC) * PT-INR [facility](Performed 11/08/2021) Performed for Alcoholic cirrhosis of liver with ascites (HCC) * COMPREHENSIVE METABOLIC PANEL(Performed 11/08/2021) Performed for Alcoholic cirrhosis of liver with ascites (HCC) * CBC W AUTO DIFFERENTIAL(Performed 11/08/2021) Performed for Alcoholic cirrhosis of liver with ascites (HCC) * PHOSPHATIDYLETHANOL (PETH)(Performed 10/02/2021) Performed for Alcoholic cirrhosis of liver with ascites (HCC) * PT-INR [facility](Performed 10/02/2021) Performed for Alcoholic cirrhosis of liver with ascites (HCC) * CERULOPLASMIN(Performed 10/02/2021) Performed for Alcoholic cirrhosis of liver with ascites (HCC) * [id number] BLOOD(Performed 10/02/2021) Performed for Alcoholic cirrhosis of liver with ascites (HCC) * ALPHA FETOPROTEIN BLOOD TUMOR MARKER(Performed 10/02/2021) Performed for Alcoholic cirrhosis of liver with ascites (HCC) * COMPREHENSIVE METABOLIC PANEL(Performed 10/02/2021) Performed for Alcoholic cirrhosis of liver with ascites (HCC) * CBC W AUTO DIFFERENTIAL(Performed 10/02/2021) Performed for Alcoholic cirrhosis of liver with ascites (HCC) Results * US ABDOMEN LIMITED (10/28/2023 2:26 PM CDT) Only the most recent of3 resultswithin the time period is included. Anatomical Region Laterality Modality Abdomen Ultrasound 10/28/2023 2:21 PM CDT Impressions 10/28/2023 2:37 PM CDT Impression: 1.Liver Visualization Score A: No or minimal limitations. 2.US-1 Negative. Repeat surveillance US in 6 months. 3.Hepatic cirrhosis without evidence of portal hypertension. No focal hepatic lesions. > Dictated by Terry Harmon MD (Industrial Locomotive Operator) I, Homa Hernandez MD have personally reviewed and interpreted this examination/study. > Interpreting Provider: Homa Hernandez MD on 10/28/2023 2:37 PM Narrative 10/28/2023 2:37 PM CDT PROCEDURE: ??US ABDOMEN LIMITED, DATE/TIME OF EXAM: ??10/28/2023 1:46 PM, LOCATION ??[facility] INDICATION: K70.31: Alcoholic cirrhosis of liver with ascites (HCC) ADDITIONAL CLINICAL INFORMATION: Ordering Provider Reason For Exam: ??hcc screening COMPARISON: Ultrasound abdomen dated 02/10/2023 Findings Liver Visualization Score: No or minimal limitations in liver visualization Liver Morphology: The liver is coarse in echotexture and has a nodular surface contour. Liver Observations: None. Main Portal Vein: Color Doppler evaluation demonstrates patency of the main portal vein. Hepatic Veins: Color Doppler evaluation demonstrates patency of the hepatic veins. Bile Ducts: The common bile duct is nondilated, measuring 4.6 mm. No intrahepatic or extrahepatic biliary dilation. Gallbladder: No gallstones or pericholecystic fluid is seen.. Sonographic Plasencia's sign is negative. Ascites: No ascites is present. Spleen: The spleen measures 8.5 cm in length. Pancreas: The pancreas is obscured. Right Kidney: The right kidney measures 10.7 cm in length. Limited views of the right kidney reveal no evidence of nephrolithiasis or hydronephrosis. ??No discrete mass identified. Procedure Note Homa Hernandez MD - 10/28/2023 PROCEDURE: US ABDOMEN LIMITED, DATE/TIME OF EXAM: 10/28/2023 1:46 PM, LOCATION [facility] INDICATION: K70.31: Alcoholic cirrhosis of liver with ascites (HCC) ADDITIONAL CLINICAL INFORMATION: Ordering Provider Reason For Exam: hcc screening COMPARISON: Ultrasound abdomen dated 02/10/2023 Findings Liver Visualization Score: No or minimal limitations in liver visualization Liver Morphology: The liver is coarse in echotexture and has a nodular surface contour. Liver Observations: None. Main Portal Vein: Color Doppler evaluation demonstrates patency of the main portal vein. Hepatic Veins: Color Doppler evaluation demonstrates patency of the hepatic veins. Bile Ducts: The common bile duct is nondilated, measuring 4.6 mm. No intrahepatic or extrahepatic biliary dilation. Gallbladder: No gallstones or pericholecystic fluid is seen.. Sonographic Plasencia'ssign is negative. Ascites: No ascites is present. Spleen: The spleen measures 8.5 cm in length. Pancreas: The pancreas is obscured. Right Kidney: The right kidney measures 10.7 cm in length. Limited views of the right kidney reveal no evidence of nephrolithiasis or hydronephrosis. No discrete mass identified. Impression: 1.Liver Visualization Score A: No or minimal limitations. 2.US-1 Negative. Repeat surveillance US in 6 months. 3.Hepatic cirrhosis without evidence of portal hypertension. No focal hepatic lesions. > Dictated by Terry Harmon MD (Industrial Locomotive Operator) I, Homa Hernandez MD have personally reviewed and interpreted this examination/study. > Interpreting Provider: Homa Hernandez MD on 10/28/2023 2:37 PM Clementine Veras APRN-GREEN MATERIAL VALUE ADDED ASSESSOR US ORDERABL ES * (ABNORMAL) PT-INR [facility] (02/10/2023 3:03 PM CDT) Only the most recent of4 resultswithin the time period is included. PT 16.5(H) 12.1 - 14.8 Seconds 02/10/2023 4:09 PM CDT [facility] INR 1.3 See Comment 02/10/2023 4:09 PM CDT [facility] Comment:The suggested therap eutic range for standard coumadin (warfarin) therapy is an INR of 2.0-3.0. For high-risk patients (Mechanical Mitral Valve Prosthesis, etc.), the suggested prophylactic therapeutic range is an INR of 2.5-3.5. Blood BLOOD SPECIMEN / Unknown Lab Venipuncture / Unknown 02/10/2023 3:03 PM CDT 02/10/2023 3:45 PM CDT [facility] - COAGU LATION ORDERABLES [address] [address], [facility] [phone] * ALPHA FETOPROTEIN BLOOD TUMOR MARKER (02/10/2023 3:03 PM CDT) Only the most recent of3 resultswithin the time period is included. Alpha-Fetoprote in Tumor Marker 2.4 <=8.3 ng/mL 02/10/2023 4:32 PM CDT [facility] Comment: AFP values will vary depending on testing procedure used. Results are not comparable across different methods. AFP values obtained by [facility] using an Stream Media Alinity Immunoassay. Blood BLOOD SPECIMEN / Unknown Lab Venipuncture / Unknown 02/10/2023 3:03 PM CDT 02/10/2023 3:45 PM CDT Clementine Veras [facility] - CHEMI STRY ORDERABLES [facility] [address] [place] [address], [facility] [phone] * (ABNORMAL) CBC WITH DIFFERENTIAL (02/10/2023 3:03 PM T) Only the most recent of4 resultswithin the time period is included. WBC 10.2 3.5 - 10.5 10? 3 /uL 02/10/2023 4:00 PM [facility] RBC 4.89 4.30 - 5.70 10? 6 /uL 02/10/2023 4:00 PM [facility] Hemoglobin 14.4 12.0 - 17.6 g/dL 02/10/2023 4:00 PM [facility] Hematocrit 44.6 35.2 - 51.7 % 02/10/2023 4:00 PM [facility] MCV 91.2 80.7 - 98.3 fL 02/10/2023 4:00 PM [facility] MCH 29.4 26.7 - 34.0 pg 02/10/2023 4:00 PM [facility] MCHC 32.3 30.8 - 35.9 g/dL 02/10/2023 4:00 PM [facility] RDW-SD 50.4(H) 36.0 - 50.0 fL 02/10/2023 4:00 PM [facility] RDW-CV 15.0(H) 11.2 - 14.8 % 02/10/2023 4:00 PM [facility] Platelet Count 215 150 - 400 10? 3 /uL 02/10/2023 4:00 PM [facility] MPV 10.2 9.4 - 12.9 fL 02/10/2023 4:00 PM [facility] nRBC Absolute 0.00 0 10? 3 /uL 02/10/2023 4:00 PM [facility] nRBC Auto 0.0 0 /100 WBC 02/10/2023 4:00 PM [facility] Neutrophils % 70.6(H) 35.0 - 70.0 % 02/10/2023 4:00 PM [facility] Lymphocytes % 16.8(L) 20.0 - 43.0 % 02/10/2023 4:00 PM [facility] Monocytes % 8.2 5.0 - 13.0 % 02/10/2023 4:00 PM [facility] Eosinophils % 3.5 0.0 - 6.0 % 02/10/2023 4:00 PM [facility] Basophil % 0.5 0.0 - 2.0 % 02/10/2023 4:00 PM [facility] Neutrophils Absolute 7.23(H) 1.60 - 7.00 10? 3 /uL 02/10/2023 4:00 PM [facility] Lymphocyte Absolute 1.72 1.10 - 3.90 10? 3 /uL 02/10/2023 4:00 PM [facility] Monocytes Absolute 0.84 0.26 - 1.07 10? 3 /uL 02/10/2023 4:00 PM [facility] Eosinophils Absolute 0.36 0.00 - 0.47 10? 3 /uL 02/10/2023 4:00 PM [facility] Basophils Absolute 0.05 0.00 - 0.08 10? 3 /uL 02/10/2023 4:00 PM [facility] Immature Granulocytes % 0.4 0.0 - 1.0 % 02/10/2023 4:00 PM [facility] Immature Granulocytes Absolute 0.04 02/10/2023 4:00 PM [facility] Blood BLOOD SPECIMEN / Unknown Lab Venipuncture / Unknown 02/10/2023 3:03 PM CDT 02/10/2023 3:46 PM CDT Clementine Veras ENGINEERING PRODUCTION LIAISON-GREEN MATERIAL VALUE ADDED ASSESSOR LAB - HEMAT OLOGY ORDERABLES [facility] [address] [place] [address], [facility] [phone] * (ABNORMAL) COMPREHENSIVE METABOLIC PANEL (02/10/2023 3:03 PM CDT) Only the most recent of4 resultswithin the time period is included. BUN 12 7 - 26 mg/dL 02/10/2023 4:13 PM [facility] Creatinine 0.98 0.71 - 1.16 mg/dL 02/10/2023 4:13 PM [facility] Sodium 139 136 - 145 mmol/L 02/10/2023 4:13 PM [facility] Potassium 4.5 3.5 - 4.5 mmol/L 02/10/2023 4:13 PM [facility] Chloride 104 98 - 107 mmol/L 02/10/2023 4:13 PM [facility] CO2 27 22 - 29 mmol/L 02/10/2023 4:13 PM [facility] Glucose 92 70 - 115 mg/dL 02/10/2023 4:13 PM [facility] Calcium 9.6 8.4 - 10.2 mg/dL 02/10/2023 4:13 PM [facility] Protein Total 8.1 6.0 - 8.3 g/dL 02/10/2023 4:13 PM [facility] Albumin 3.9 3.4 - 5.0 g/dL 02/10/2023 4:13 PM [facility] Bilirubin Total 0.7 0.2 - 1.2 mg/dL 02/10/2023 4:13 PM [facility] Alkaline Phosphatase 110 40 - 150 U/L 02/10/2023 4:13 PM [facility] ALT 8 5 - 55 U/L 02/10/2023 4:13 PM [facility] AST 16 5 - 34 U/L 02/10/2023 4:13 PM [facility] Anion Gap 8 6 - 16 02/10/2023 4:13 PM [facility] BUN/Creatinine Ratio 12 7 - 23 02/10/2023 4:13 PM [facility] Osmolality Calculated 287 275 - 295 mOsm/kg 02/10/2023 4:13 PM [facility] Albumin/Globulin Ratio 0.9(L) 1.1 - 2.3 02/10/2023 4:13 PM [facility] eGFR by CKD-EPI 86(L) >=90 mL/min/1.7 3 m2 02/10/2023 4:13 PM CDT [facility] Blood BLOOD SPECIMEN / Unknown Lab Venipuncture / Unknown 02/10/2023 3:03 PM CDT 02/10/2023 3:45 PM CDT Clementine Veras ENGINEERING PRODUCTION LIAISON-GREEN MATERIAL VALUE ADDED ASSESSOR LAB - CHEMI STRY ORDERABLES Performing Organization Address City/State/RUST Co de Phone Number [facility] [address] [place] [address], [facility] [phone] * PHOSPHATIDYLETHANOL (PETH) (08/08/2022 11:30 AM CDT) Only the most recent of2 resultswithin the time period is included. Pathologist [facility] PEth 16:0/18.1 (POPEth) <10 ng/mL 08/11/2022 1:18 AM CDT [facility] ([facility]) Comment: INTERPRETIVE INFORMATION:Phosphatidylethanol (PEth), Whole Blood Phosphatidylethanol (PEth) homologues Result Interpretation PEth 16:0/18:1 (POPEth) ? Less than 10 ng/mL............Not detected Less than 20 ng/mL............Abstinence or light alcohol ?consumption 20 - 200 ng/mL................Moderate alcohol consumption Greater than 200 ng/mL........Heavy alcohol consumption or ?chronic alcohol use PEth 16:0/18:2 (PLPEth).......Reference ranges are not well ?established. (Reference: Alec Jordan and Rhonda Zelaya 2018 J. Forensic Sci) Phosphatidylethanol (PEth) is a group of phospholipids formed in the presence of ethanol, phospholipase D and phosphatidylcholine. PEth is known to be a direct alcohol biomarker. The predominant PEth homologues are PEth 16:0/18:1 (POPEth) and PEth 16:0/18:2 (PLPEth), which account for 37-46% and 26-28% of the total PEth homologues, respectively. PEth is incorporated into the phospholipid membrane of red blood cells and has a general half-life of 4-10 days and a window of detection of 2-4 weeks. However, the window of detection is longer in individuals who chronically or excessively consume alcohol. The limit of quantification is 10 ng/mL. Serial monitoring of PEth may be helpful in monitoring alcohol abstinence over time. PEth results should be interpreted in the context of the patient's clinical and behavioral history. Patients with advanced liver disease may have falsely elevated PEth concentrations (Vivian SILVA et al 2018, Alcoholism Clinical & Experimental Research). This test was developed and its performance characteristics determined by [facility]. It has not been cleared or approved by the U.S. Food and Drug Administration. This test was performed in a CLIA-certified laboratory and is intended for clinical purposes. PEth 16:0/18.2 (PLPEth) <10 ng/mL 08/11/2022 1:18 AM CDT [facility] ([facility]) Comment: Performed By: [facility] [address] [place] [address] Custom Bike Builder: Carlos Chavez MD, PhD Blood BLOOD SPECIMEN / Unknown Lab Venipuncture / Unknown 08/08/2022 11:30 AM CDT 08/08/2022 11:38 AM CDT Ricardo Guzmán MD LAB - CHEMISTR Y ORDERABLES [facility]) [address] * CERULOPLASMIN (10/02/2021 12:42 PM CDT) Ceruloplasmin 32 20 - 60 mg/dL 10/02/2021 1:50 PM CDT [facility] Blood BLOOD SPECIMEN / Unknown Lab Venipuncture / Unknown 10/02/2021 12:42 PM CDT 10/02/2021 12:52 PM CDT Clementine Veras ENGINEERING PRODUCTION LIAISON-GREEN MATERIAL VALUE ADDED ASSESSOR LAB - CHEMI STRY ORDERABLES [facility] [address] [place] [address], [place] [phone] * [id number] BLOOD (10/02/2021 12:42 PM CDT) Qnamr-5-Vszqng ypsin 200 90 - 200 mg/dL 10/02/2021 1:50 PM CDT [facility] Blood BLOOD SPECIMEN / Unknown Lab Venipuncture / Unknown 10/02/2021 12:42 PM CDT 10/02/2021 12:52 PM CDT Clementine Veras ENGINEERING PRODUCTION LIAISON-GREEN MATERIAL VALUE ADDED ASSESSOR LAB - CHEMI STRY ORDERABLES [address] [address], [place] [phone] Care Teams Site Interpreter Relationship Specialty Start Date End Date Consuelo Villareal MD [address] [place] [id number] PCP - General Internal Medicine 10/02/21 Hardik Frye MD [address] [place] [address] Gastroenterology 10/09/21 Carlo Penaloza MD [address] [phone] [place] [address] General Surgery 01/31/22
[2024-05-24 14:17] LABS: Alanine Aminotransferase 15 U/L (16-63); Albumin Level 3.7 g/dL (3.4-5.0); Alkaline Phosphatase 108 U/L (46-116); Anion Gap 9 mmol/L (4-12); Aspartate Amino Transferase 16 U/L (15-37); Bilirubin,Total 0.6 mg/dL (0.00-1.00); Blood Urea Nitrogen 13 mg/dL (7-18); Calcium 9.1 mg/dL (8.5-10.1); Carbon Dioxide 30 mmol/L (21-32); Chloride 103 mmol/L (98-108); Cholesterol 222 mg/dL (0-200); Estimated Glomerular Filt Rate 52; Free T4 Free Thyroxine 1.42 ng/dL (0.76-1.46); Glucose 96 mg/dL (70-99); HDL Direct 39 mg/dL (40-60); LDL Cholesterol Calculated 161 mg/dL (<130); Osmolality Calculated 294 mOsm/kg (285-295); Potassium 4.2 mmol/L (3.5-5.1); Sodium 142 mmol/L (136-145); Thyroid Stimulating Hormone 1.91 uIU/mL (0.36-3.74); Total Protein 7.4 g/dL (6.4-8.2); Triglycerides 108 mg/dL (0-150); Vitamin B12 283 pg/mL (193-986)
[2024-05-24 14:18] LABS: Prostate Specific Antigen < 0.1 ng/mL (< OR = 4.0)
== END 2024-05-24 13:01 | disposition home or self-care (01) ==
LOC: CHSLAB 13:02
PROVIDERS: PCP Internal Medicine; Visit Provider Internal Medicine
DX: E78.2 Mixed hyperlipidemia (principal); I10 Essential (primary) hypertension; E53.8 Deficiency of other specified B group vitamins; E03.4 Atrophy of thyroid (acquired); Z12.5 Encounter for screening for malignant neoplasm of prostate
CPT/HCPCS: 36415; 80053; 80061; 82607; 84153; 84439; 84443; 85027; G0103

== ENCOUNTER 2024-07-21 13:04 | Outpatient (CLI) | payer MEDICARE, MEDICAID, SELFPAY ==
[2024-07-21 13:41] LABS: Alanine Aminotransferase 17 U/L (16-63); Alkaline Phosphatase 111 U/L (46-116); Anion Gap 8 mmol/L (4-12); Aspartate Amino Transferase 16 U/L (15-37); Bilirubin,Total 0.8 mg/dL (0.00-1.00); Blood Urea Nitrogen 15 mg/dL (7-18); Calcium 9.4 mg/dL (8.5-10.1); Carbon Dioxide 31 mmol/L (21-32); Chloride 98 mmol/L (98-108); Cholesterol 208 mg/dL (0-200); Creatine Kinase 74 U/L (39-308); Estimated Glomerular Filt Rate 51; Glucose 95 mg/dL (70-99); HDL Direct 38 mg/dL (40-60); LDL Cholesterol Calculated 143 mg/dL (<130); Osmolality Calculated 284 mOsm/kg (285-295); Potassium 4.4 mmol/L (3.5-5.1); Sodium 137 mmol/L (136-145); Total Protein 8.1 g/dL (6.4-8.2); Triglycerides 133 mg/dL (0-150)
--- OUTSIDE RECORDS SUMMARY | 2024-07-21 14:09 | XMS_ITS | Encounter Summary ---
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
--- OUTSIDE RECORDS SUMMARY | 2024-07-21 14:09 | XMS_ITS | Encounter Summary ---
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
--- OUTSIDE RECORDS SUMMARY | 2024-07-21 14:09 | XMS_ITS | Clinical Summary ---
Author Organization [facility] Address [address] [place] [address] Care Team Providers Care Paraplanner Name Role Phone Consuelo Villareal MD Primary Care Provider Edelmira Balderas MD Unavailable Allergies No known active allergies Medications aspirin 81 mg tablet Take 1 tablet (81 mg total) by mouth every morning Last dose 05/12/22 07/08/19 09 Active latanoprost (XALATAN) 0.005 % ophthalmic solution Administer 1 drop into both eyes nightly Active apixaban (ELIQUIS) 5 mg tablet Take 1 tablet (5 mg total) by mouth 2 (two) times a day. 60 tablet 1 11/29/19 18 Active finasteride (PROSCAR) 5 mg tablet TAKE 1 TABLET BY MOUTH EVERY DAY 30 tablet 5 02/04/20 18 Active PROAIR HFA 90 mcg/actuation inhaler INHALE 2 PUFFS BY MOUTH EVERY 4 TO 6 HOURS NEEDED 17 Inhaler 4 04/21/20 18 Active allopurinol (ZYLOPRIM) 100 mg tablet TAKE ONE TABLET BY MOUTH DAILY 90 tablet 3 05/28/19 19 Active fluticasone-umec lidin-vilanter (TRELEGY ELLIPTA) 100-62.5-25 mcg inhaler Inhale 1 puff daily 30 each 1 05/10/19 22 Active furosemide (LASIX) 20 mg tablet Take 1 tablet (20 mg total) by mouth daily 30 tablet 11 05/10/19 22 Active cyclobenzaprine (FLEXERIL) 5 mg tablet Take 1 tablet (5 mg total) by mouth 3 (three) times a day as needed for muscle spasms 25 tablet 09/26/19 22 Active amLODIPine (NORVASC) 10 mg tablet Take 1 tablet (10 mg total) by mouth daily 30 tablet 01/26/20 22 Active carvediloL (COREG) 25 mg tablet Take 1 tablet (25 mg total) by mouth 2 (two) times a day with meals 60 tablet 01/26/[address] (PROTONIX) 40 mg EC tabletIndication s:home med Take 1 tablet (40 mg total) by mouth daily 30 tablet 01/26/20 22 Active lactulose 0.67 gram/mL solution Take by mouth as needed 04/03/20 22 Active nitroglycerin (NITROSTAT) 0.4 mg SL tablet 02/29/20 22 Active polyethylene glycol (MIRALAX) 17 gram/dose powder Take 1 g by mouth every morning 05/10/19 22 Active triamcinolone (KENALOG) 0.1 % cream Apply topically as needed Active betamethasone dipropionate (DEL-BETA) 0.05 % cream Apply topically as needed Active naloxone (NARCAN) 4 mg/actuation spray,non-aeroso l Administer 1 spray into affected nostril(s) as needed 06/03/19 24 Active Cosentyx Pen pen injectorIndicati ons:Ankylosing spondylitis of multiple sites in spine (HCC) INJECT 150MG SUBCUTANEOUSLY EVERY 4 WEEKS 1 mL 2 05/10/19 25 Active oxyCODONE (ROXICODONE) 5 mg immediate release tablet Take 1 tablet (5 mg total) by mouth as directed for pain 05/22/19 25 Active diclofenac sodium (VOLTAREN) 1 % gel Apply 4 g topically 3 (three) times a day 100 g 5 06/07/19 25 Active Active Problems Problem Noted Date Diagnosed Date 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 NO repair NGT to KEM, amanda, NPO, IVF, pain management 09/22: Hernia remains reduced, asities fluid noted within umbilical hernia. NGT 100ml output; no nausea; +flatus, NGT removed this AM. Skelton removed today, CLD, ADAT. Pain control. 09/23: [...] cirrhosis status. Ascites due to alcoholic cirrhosis 05/08/2021 Assessment & Plan (01/23/2022 10:57 AM CDT): [...] Plan (01/23/2022 10:57 AM CDT): Hx of [place]. S/p CABG in 2006 -Continue home aspirin. Back pain 08/03/2007 Benign essential hypertension 08/03/2007 Assessment & Plan (01/22/2022 3:03 PM CDT): While in ICU started on esmolol and nicardipine infusion. - Continue amlodipine 10mg daily, coreg 12.5mg BID, lasix 20mg daily. Home atenolol held for coreg use. Reportedly no longer on spironolactone due to diarrhea. - Goal SBP less than 120. 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 2nd Floor [address] [place] [address] Ankylosing spondylitis of multiple sites in spine (HCC) (Primary Dx); Pancreaticoduodenal artery aneurysm; High risk medication use from Last 3 Months Immunizations Immunization Administration Dates Next Due Influenza, Quadrivalent, Spl it, Preservative Free, Intramuscular 05/08/2021 Surgical History Surgery Date Site/Laterality Comments US GUIDED PARACENTESIS 05/08/2021 N/A Medical History Medical History Date Comments Myocardial infarction (HCC) Myoc ardial infarction Hyperlipidemia Hyperlipidemia Chronic obstructive pulmonar y disease (HCC) COPD Hx Other Medical CAD Hypertension Hypertension Atherosclerotic heart diseas e of [place] coronary artery without angina pectoris Arteriosclerotic coronary ar sudarshan disease - CABG x2 09/01 at [facility] to D2/LAD (Added by TW Conv) Asthma A-fib (HCC) Cirrhosis (HCC) Lung nodules 10/2023 Family [...] on file Legal Sex Male 1:47 AM PROFESSOR OF GRAPHIC 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 Gender Identity Not on file Sexual Orientation Not on file Obstetrics History Last Filed Vital Signs Vital Sign Reading Time Taken Comments Blood Pressure 132/85 06/07/2024 10:00 AM PROFESSOR OF GRAPHIC DESIGN Pulse 63 06/07/2024 10:00 AM PROFESSOR OF GRAPHIC DESIGN Temperature 36.7 C (98 F) 06/07/2024 10:00 AM PROFESSOR OF GRAPHIC DESIGN Respiratory Rate 16 05/15/2022 5:00 PM PROFESSOR OF GRAPHIC DESIGN Oxygen Saturation 97% 06/07/2024 10:00 AM PROFESSOR OF GRAPHIC DESIGN Inhaled Oxygen Concentration - - Weight 93.9 kg (207 lb) 06/07/2024 10:00 AM PROFESSOR OF GRAPHIC DESIGN Height 172.7 cm (5' 8 ) 06/07/2024 10:00 AM PROFESSOR OF GRAPHIC DESIGN Body Mass Index 31.47 06/07/2024 10:00 AM PROFESSOR OF GRAPHIC DESIGN Plan of Treatment Health Maintenance Due Date Last Done Comments Depression Screening 1959 Prostate Cancer Screening-PSA 1959 DTaP/Tdap/Td Vaccine (1 - Tdap) 1970 Hepatitis B Screening 1977 Lung Cancer Screening 2009 Zoster Vaccine (1 of 2) 2009 Pneumococcal vaccine 65+ (3 of 3 - PCV20 or PCV21) 03/19/2021 03/19/2016, 02/16/2008 Fall Risk Assessment 05/13/2023 05/13/2022 Colon Cancer Screening-Colonoscopy 05/31/2023 05/31/2013 Covid-19 Vaccine (3 - 2023-2 5 season) 2023 11/15/2020, 10/25/2020 Influenza Vaccine (#1) 2023 2, 05/08/2021, 01/28/2020, Additional history exists Abdominal Aortic Aneurysm (A AA) Screen 02/02/2024 06/11/2022, 04/12/2022, 01/21/2022, Additional history exists Well Visit 65+ 02/02/2024 Colon Cancer Screening-CT Colonography Discontinued 05/31/2013 Colon Cancer Screening-DNA Stool Discontinued 05/31/19 14 Colon Cancer Screening-FIT Discontinued 05/31/2013 Colon Cancer [...] as needed Medical Devices Implanted Type Area Safety Investigator/Cause Analyst Device Identifier Shelf Expiration Date Model / Serial / Lot [facility] Trufill Glue 1gm Nbca [id number] - [id number] Implanted:Qty: 1 on 05/15/2022 at [facility] Where Was it Filmed/[employer] 02/26/2024 [id number] / / [id number] [employer] Angio-Seal Vip 6fr Closere Device [id number] - [id number] Implanted:Qty: 1 on 05/15/2022 at [facility] [employer] 02/25/2023 [id number] / / [id number] Procedures Procedure Name Priority Date/Time Associated Diagnosis Comments CTA ABDOMEN PELVIS W WO CONTRAST Schedule Routine, Read Routine (OP Routine) 06/11/2022 1:10 PM PROFESSOR OF GRAPHIC DESIGN Aneurysm of visceral artery HEPATITIS C ANTIBODY Routine 05/09/2021 3:08 PM PROFESSOR OF GRAPHIC DESIGN COLONOSCOPY REPORT 05/31/2013 from Last 3 Months or Most Recently Relevant to Health Maintenance Results * CTA Abdomen Pelvis (06/11/2022 1:10 PM PROFESSOR OF GRAPHIC DESIGN) Anatomical Region Laterality Modality Body N/A Computed Tomogra phy 06/11/2022 2:20 PM PROFESSOR OF GRAPHIC DESIGN Impressions 06/11/2022 2:21 PM PROFESSOR OF GRAPHIC DESIGN 1. Decreased size of a superior pancreaticoduodenal [...] Homa Neal M.D. Narrative 06/11/2022 2:21 PM PROFESSOR OF GRAPHIC DESIGN EXAMINATION: CTA ABDOMEN PELVIS HISTORY: 62-year-old with [...] normal. No acute fracture suspicious osseous lesion. Procedure Note [...] by: Homa Neal M.D. Dilip Lora MD [facility] [place] PROCEDURES Final Result * Hepatitis C antibody (05/09/2021 3:08 PM PROFESSOR OF GRAPHIC DESIGN) Hep C Ab Nonreactive Nonreactive [facility] Comment:Antibodies to HCV no t detected. Does NOT exclude the possibility of recent exposure to HCV. Blood 05/09/2021 3:08 PM PROFESSOR OF GRAPHIC DESIGN 05/09/2021 3:38 PM PROFESSOR OF GRAPHIC DESIGN Pratima Morales MD LAB MICROBIOLOGY - GENERAL ORD ERABLES Edited Result - Final [facility] Department [place] [address] * COLONOSCOPY REPORT (05/31/2013) Anatomical Region Laterality Modality Other Narrative 05/31/2013 Ordered by an unspecified provider. Historical Provider GI PROCEDURE ORDERABLES F inal Result from Last 3 Months or Most Recently Relevant to Health Maintenance Insurance MEDICARE [facility] MEDICARE IDPA MANAGED MEDICARE GENERIC RISK OTHER [facility] [place] [facility] [place] MEDICARE [facility] Address: [address] [address] [place] [address] IDPA Advance Directives For more information, please contact: [phone] * Full Code (Latest Code Status on File) Date Activated Date Inactivated Comments 01/20/2022 6:40 AM 01/25/2022 2:33 PM * Full Code Date Activated Date Inactivated Comments 09/22/2021 4:08 AM 09/24/2021 6:55 PM * Full Code Date Activated Date Inactivated Comments 05/08/2021 5:39 PM 05/10/2021 9:30 PM Care Teams Paraplanner Relationship Specialty Start Date End Date Consuelo Villareal MD [address] [place] [address] PCP - General 05/07/21 Edelmira Balderas MD [address] [place] [address] Consulting Physician Vascular Surgery 01/25/22
--- OUTSIDE RECORDS SUMMARY | 2024-07-21 14:09 | XMS_ITS | Encounter Summary ---
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
--- OUTSIDE RECORDS SUMMARY | 2024-07-21 14:09 | XMS_ITS | Encounter Summary ---
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
--- OUTSIDE RECORDS SUMMARY | 2024-07-21 14:09 | XMS_ITS | Encounter Summary ---
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 [address] [place] [address] PCP - General 06/19/19 05/06/21 Consuelo Villareal MD [address] [place], [place] [id number] PCP - General 05/07/21 Edelmira Balderas MD [address] [place] [address] Consulting Physician Vascular Surgery 01/25/22 documented as of this encounter
--- OUTSIDE RECORDS SUMMARY | 2024-07-21 14:09 | XMS_ITS | Encounter Summary ---
Author Organization 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
--- OUTSIDE RECORDS SUMMARY | 2024-07-21 14:09 | XMS_ITS | Encounter Summary ---
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
--- OUTSIDE RECORDS SUMMARY | 2024-07-21 14:09 | XMS_ITS | Encounter Summary ---
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 [facility] [address] [place] [address] PCP - General 06/19/19 05/06/21 Consuelo Villareal MD [address] [place] [address] PCP - General 05/07/21 Edelmira Balderas MD [address] [place] [address] Consulting Physician Vascular Surgery 01/25/22 documented as of this encounter
--- OUTSIDE RECORDS SUMMARY | 2024-07-21 14:09 | XMS_ITS | Referral Summary ---
Author Organization [facility] Address [address] [place] [address] Care Team Providers Care Barrel Handler Name Role Phone Consuelo Villareal MD Primary Care Provider Edelmira Balderas MD Unavailable [phone] Encounters Date Type Department Care Team Description 06/07/2024 10:00 AM MANAGER MASS Office Visit [facility] Rheumatology [address] [facility] 2nd Floor [address] [place] [address] Ankylosing spondylitis of multiple sites in spine (HCC) (Primary Dx); Pancreaticoduodenal artery aneurysm; High risk medication use from Last 3 Months Allergies No known active allergies Medications aspirin [...] 1 puff daily 30 each 1 05/10/19 Active furosemide (LASIX) 20 mg tablet Take [...] total) by mouth daily 30 tablet 01/26/20 Active lactulose 0.67 gram/mL solution Take by [...] (09/21/2021): Added automatically from request for surgery [id number] Assessment & Plan (09/24/2021 10:42 AM CDT): Presented to ED with incarcerated umbilical hernia; patient noted hernia presence for ~3-5 yrs; no h/o incarceration Booked for OR for repair; after induction, hernia was able to be reduced. NO repair NGT to amanda BROWNLEE, NPO, IVF, pain management 09/22: Hernia remains [...] Plan: Discharge home today. Follow up in [facility] attending clinic to discuss elective hernia repair [...] Plan (01/23/2022 10:57 AM CDT): Hx of [place]. S/p CABG in 2006 -Continue home aspirin. Back pain 08/03/2007 Benign essential hypertension 08/03/2007 Assessment & Plan (01/22/2022 3:03 PM CDT): While in ICU started on esmolol and nicardipine infusion. - Continue amlodipine 10mg daily, coreg 12.5mg BID, lasix 20mg daily. Home atenolol held for coreg use. Reportedly no longer on spironolactone due to diarrhea. - Goal SBP less than 120. Immunizations Immunization Administration Dates Next Due Influenza, [...] on file Legal Sex Male 1:47 AM MANAGER MASS Gender Identity Not on file Sexual Orientation Not on file Last Filed Vital Signs Vital Sign Reading Time Taken Comments Blood Pressure 132/85 06/07/2024 10:00 AM MANAGER MASS Pulse 63 06/07/2024 10:00 AM MANAGER MASS Temperature 36.7 C (98 F) 06/07/2024 10:00 AM MANAGER MASS Respiratory Rate 16 05/15/2022 5:00 PM MANAGER MASS Oxygen Saturation 97% 06/07/2024 10:00 AM MANAGER MASS Inhaled Oxygen Concentration - - Weight 93.9 kg (207 lb) 06/07/2024 10:00 AM MANAGER MASS Height 172.7 cm (5' 8 ) 06/07/2024 10:00 AM MANAGER MASS Body Mass Index 31.47 06/07/2024 10:00 AM MANAGER MASS Plan of Treatment Not on file Goals [...] as needed Medical Devices Implanted Type Area Field Crop Harvest Contractor Device Identifier Shelf Expiration Date Model / Serial / Lot CodCytocentrics/[employer] Trufill Glue 1gm Nbca [id number] - [id number] Implanted:Qty: 1 on 05/15/2022 at [facility] [place] [employer] 02/26/2024 [id number] / / [id number] [employer] Angio-Seal Vip 6fr Closere Device [id number] - [id number] Implanted:Qty: 1 on 05/15/2022 at [facility] [employer] 02/25/2023 [id number] / / [id number] Procedures Procedure Name Priority Date/Time Associated Diagnosis Comments CTA ABDOMEN PELVIS W WO CONTRAST Schedule Routine, Read Routine (OP Routine) 06/11/2022 1:10 PM MANAGER MASS Aneurysm of visceral artery HEPATITIS C ANTIBODY Routine 05/09/2021 3:08 PM MANAGER MASS COLONOSCOPY REPORT 05/31/2013 from Last 3 Months or Most Recently Relevant to Health Maintenance Results * CTA Abdomen Pelvis (06/11/2022 1:10 PM MANAGER MASS) Anatomical Region Laterality Modality Body N/A Computed Tomogra phy 06/11/2022 2:20 PM MANAGER MASS Impressions 06/11/2022 2:21 PM MANAGER MASS 1. Decreased size of a superior pancreaticoduodenal [...] Homa Neal M.D. Narrative 06/11/2022 2:21 PM MANAGER MASS EXAMINATION: CTA ABDOMEN PELVIS HISTORY: 62-year-old with [...] acute fracture suspicious osseous lesion. Procedure Note Hoam Neal MD - 06/11/2022 EXAMINATION: CTA ABDOMEN [...] * Hepatitis C antibody (05/09/2021 3:08 PM MANAGER MASS) Hep C Ab Nonreactive Nonreactive [facility] Comment:Antibodies to HCV no t detected. Does NOT exclude the possibility of recent exposure to HCV. Blood 05/09/2021 3:08 PM MANAGER MASS 05/09/2021 3:38 PM MANAGER MASS Pratima Morales MD LAB MICROBIOLOGY - GENERAL ORD ERABLES Edited Result - Final [facility] [place] [address] * COLONOSCOPY REPORT (05/31/2013) Anatomical Region Laterality Modality Other Narrative 05/31/2013 Ordered by an unspecified provider. Historical Provider GI PROCEDURE ORDERABLES F inal Result from Last 3 Months or Most Recently Relevant to Health Maintenance Insurance MEDICARE [facility] MEDICARE IDPA MANAGED MEDICARE GENERIC RISK OTHER [facility] [place] [facility] MEDICARE [facility] Address: [address] [address] [place] [address] IDPA Advance Directives For more information, please contact: [phone] * Full Code (Latest Code Status on File) Date Activated Date Inactivated Comments 01/20/2022 6:40 AM 01/25/2022 2:33 PM * Full Code Date Activated Date Inactivated Comments 09/22/2021 4:08 AM 09/24/2021 6:55 PM * Full Code Date Activated Date Inactivated Comments 05/08/2021 5:39 PM 05/10/2021 9:30 PM Care Teams Barrel Handler Relationship Specialty Start Date End Date Consuelo Villareal MD [address] [place] [address] PCP - General 05/07/21 Edelmira Balderas MD [address] [place] [address] Consulting Physician Vascular Surgery 01/25/22
--- OUTSIDE RECORDS SUMMARY | 2024-07-21 14:09 | XMS_ITS | Encounter Summary ---
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
--- OUTSIDE RECORDS SUMMARY | 2024-07-21 14:09 | XMS_ITS | Encounter Summary ---
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
--- OUTSIDE RECORDS SUMMARY | 2024-07-21 14:09 | XMS_ITS | Encounter Summary ---
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
--- OUTSIDE RECORDS SUMMARY | 2024-07-21 14:09 | XMS_ITS | Encounter Summary ---
Author Organization [facility] Address [address] [place] [address] Care Team Providers Care C2 Tactical Analysis Technician Name Role Phone New Referring, Provider Primary Care Provider Un available Encounter Details Date Type Department Care Team (Late st Contact Info) Description 10/03/2018 Abstract [facility] CONVERSION [address] [place] [address] , Generic Conversion, Social History Tobacco Use [...] on filedocumented in this encounter Care Teams C2 Tactical Analysis Technician Relationship Specialty Start Date End Date New Referring, Provider PCP - General UNKNOWN PHYSICIAN SPECIALTY 05/24/19 documented as of this encounter
--- OUTSIDE RECORDS SUMMARY | 2024-07-21 14:09 | XMS_ITS | Clinical Summary ---
Author Organization [facility] Address [facility] [place] [address] Care Team Providers Care Pick Out Hand Name Role Phone New Referring, Provider Primary [...] Comments Blood Pressure 122/79 05/26/2019 12:20 PM SITE MONITOR Pulse 84 05/26/2019 12:20 PM SITE MONITOR Temperature 36.6 C (97.8 F) 05/26/2019 12:20 PM SITE MONITOR Respiratory Rate 18 05/26/2019 12:20 PM SITE MONITOR Oxygen Saturation 98% 05/26/2019 12:20 PM SITE MONITOR Inhaled Oxygen Concentration - - Weight 92.1 kg (203 lb) 05/24/2019 2:21 PM SITE MONITOR Height 174 cm (5' 8.5 ) 05/24/2019 2:21 PM SITE MONITOR Body Mass Index 30.41 05/24/2019 2:21 PM SITE MONITOR Plan of Treatment Health Maintenance Due Date [...] 12:18 PM 05/26/2019 3:42 PM Care Teams Pick Out Hand Relationship Specialty Start Date End Date New Referring, Provider PCP - General UNKNOWN PHYSICIAN SPECIALTY 05/24/19
--- OUTSIDE RECORDS SUMMARY | 2024-07-21 14:09 | XMS_ITS | Encounter Summary ---
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
--- OUTSIDE RECORDS SUMMARY | 2024-07-21 14:09 | XMS_ITS | Encounter Summary ---
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 [address] [place] [address] PCP - General 06/19/19 05/06/21 Consuelo Vlilareal MD [address] [place] [address] PCP - General 05/07/21 Edelmira Balderas MD [address] [place], [place] [id number] Consulting Physician Vascular Surgery 01/25/22 documented as of this encounter
--- OUTSIDE RECORDS SUMMARY | 2024-07-21 14:09 | XMS_ITS | Clinical Summary ---
Author Organization [facility] Address [address] [place] [address] Care Team Providers Care Appliance Worker Name Role Phone Consuelo Villareal MD Primary Care Provider [phone] Hardik Frye MD Unavailable [phone] Carlo Penaloza MD Unavailable [phone] Source Comments [facility],non-owned Affiliates and Associated Physician Practices is amultiple site organization consisting of ambulatory clinics and hospital sitesin [place], [place], [place] and [place]. This disclosure is being madepursuant to the Care Everywhere program and may not contain all information available regarding this patient. Last updated 18.[facility] [employer] Allergies No known active allergies Medications * [...] Type Department Care Team Description 05/03/2024 Travel from Last 3 Months Family History Medical [...] 71 10/28/2023 3:16 PM CDT Temperature 36.7 C (98.1 F) 02/10/2023 1:57 PM CDT Respiratory Rate 18 02/10/2023 1:57 PM CDT [...] Info) Description 07/26/2024 2:00 PM CDT Appointment [facility] [address] [place] [phone] Clemnetine Veras BUSINESS ADMINISTRATION PROGRAM CHAIR-FLOORS BUFFER [address] [place] [address] [address] [place] [address] 07/26/2024 3:00 PM CDT Office Visit [facility] [address] [facility] [place] [id number] Clementine Veras, BUSINESS ADMINISTRATION PROGRAM CHAIR-FLOORS BUFFER [address] [place] [address] [address] [place] [address] Health Maintenance Due Date Last Done Comments COLOGUARD (AGES 45-75) - COLON CA SCREENING 1959 COLON MONITORING 1959 COLONOSCOPY - COLON CA SCREENING 1959 CT COLONOGRAPHY - COLON CA SCREENING 1959 Colorectal Cancer Screening 1959 FIT - COLON CA SCREENING 1959 FLEX SIG - COLON CA SCREENING 1959 LIPID TESTING 1959 MEDICARE AWV 12 MONTHS 1959 HIV SCREENING 1974 HEPATITIS [...] complete this topic MENINGOCOCCAL (Group B) VACCINE SHARED DECISION-MAKING Aged Out No longer eligible based on patient's age to complete this topic MENINGOCOCCAL GROUPS A/C/Y/W VACCINE Aged Out No longer eligible based [...] CDT Alcoholic cirrhosis of liver with ascites from Last 3 Months or Most Recently Relevant to Health Maintenance Results * (ABNORMAL) COMPREHENSIVE METABOLIC PANEL (02/10/2023 3:03 PM CDT) BUN 12 7 - 26 mg/dL 02/10/2023 4:13 PM CDT [facility] Creatinine 0.98 0.71 - 1.16 mg/dL 02/10/2023 4:13 PM CDT [facility] Sodium 139 136 - 145 mmol/L 02/10/2023 4:13 PM CDT [facility] Potassium 4.5 3.5 - 4.5 mmol/L 02/10/2023 4:13 PM CDT [facility] Chloride 104 98 - 107 mmol/L 02/10/2023 4:13 PM [facility] CO2 27 22 - 29 mmol/L 02/10/2023 4:13 PM [facility] Glucose 92 70 - 115 mg/dL 02/10/2023 4:13 PM [facility] Calcium 9.6 8.4 - 10.2 mg/dL 02/10/2023 4:13 PM [facility] Protein Total 8.1 6.0 - 8.3 g/dL 02/10/2023 4:13 PM [facility] Albumin 3.9 3.4 - 5.0 g/dL 02/10/2023 4:13 PM [facility] Bilirubin Total 0.7 0.2 - 1.2 mg/dL 02/10/2023 4:13 PM [facility] Alkaline Phosphatase 110 40 - 150 U/L 02/10/2023 4:13 PM [facility] ALT 8 5 - 55 U/L 02/10/2023 4:13 PM [facility] AST 16 5 - 34 U/L 02/10/2023 4:13 PM [facility] Anion Gap 8 6 - 16 02/10/2023 4:13 PM [facility] BUN/Creatinine Ratio 12 7 - 23 02/10/2023 4:13 PM [facility] Osmolality Calculated 287 275 - 295 mOsm/kg 02/10/2023 4:13 PM [facility] Albumin/Globulin Ratio 0.9(L) 1.1 - 2.3 02/10/2023 4:13 PM [facility] eGFR by CKD-EPI 86(L) >=90 mL/min/1.7 3 m2 02/10/2023 4:13 PM [facility] Blood BLOOD SPECIMEN / Unknown Lab Venipuncture / Unknown 02/10/2023 3:03 PM CDT 02/10/2023 3:45 PM T Clementine Veras BUSINESS ADMINISTRATION PROGRAM CHAIR-FLOORS BUFFER LAB - CHEMI STRY ORDERABLES [facility] [address] [place] [address], [facility] [phone] from Last 3 Months or Most Recently Relevant to Health Maintenance Care Teams Appliance Worker Relationship Specialty Start Date End Date Consuelo Villareal MD [address] [place] [id number] PCP - General Internal Medicine 10/02/21 Hardik Frye MD [address] [place] [address] Gastroenterology 10/09/21 Carlo Penaloza MD [address] [facility] [id number] [place] [address] General Surgery 01/31/22
== END 2024-07-21 13:05 | disposition home or self-care (01) ==
LOC: CHSLAB 13:06
PROVIDERS: PCP Internal Medicine; Visit Provider Internal Medicine
DX: I10 Essential (primary) hypertension (principal); E78.2 Mixed hyperlipidemia
CPT/HCPCS: 36415; 80053; 80061; 82550

== ENCOUNTER 2024-08-24 13:14 | Outpatient (CLI) | payer MEDICARE, SELFPAY ==
[2024-08-24 13:32] LABS: Add Urine Microscopic? YES; Appearance Urine Clear (Clear); Bilirubin Urine Negative (Negative); Blood Urine Negative (Negative); Color Urine Light Yellow (Yellow); Glucose Urine UA Negative (Negative); Ketones Urine Negative (Negative); Leukocyte Esterase Ur 1+ (Negative); Nitrate Urine Negative (Negative); Protein Urine Negative (Negative); Urobilinogen Urine 0.2 mg/dL (0.2-1.0)
[2024-08-24 13:44] LABS: RBC Urine None seen /hpf (0-2); Squamous Epithelial Cell Urine Few /hpf (Few); WBC Urine 0-3 /hpf (0-3)
[2024-08-24 13:45] LABS: Bacteria Urine Trace /hpf
[2024-08-24 14:07] LABS: Anion Gap 4 mmol/L (4-12); Blood Urea Nitrogen 11 mg/dL (7-18); Calcium 9.4 mg/dL (8.5-10.1); Carbon Dioxide 31 mmol/L (21-32); Chloride 102 mmol/L (98-108); Estimated Glomerular Filt Rate 56; Glucose 94 mg/dL (70-99); Osmolality Calculated 283 mOsm/kg (285-295); Potassium 4.6 mmol/L (3.5-5.1); Sodium 137 mmol/L (136-145)
--- OUTSIDE RECORDS SUMMARY | 2024-08-24 14:26 | XMS_ITS | Clinical Summary ---
Author Organization [facility] Address [address] [place] [address] Care Team Providers Care Distribution District Supervisor Name Role Phone Consuelo Villareal MD Primary Care Provider [phone] Hardik Frye MD Unavailable [phone] aCrlo Penaloza MD Unavailable [phone] Source Comments [facility] [place],non-owned Affiliates and Associated Physician Practices is amultiple site organization consisting of ambulatory clinics and hospital sitesin [place], [place] and [place]. This disclosure is being madepursuant to the Care Everywhere program and may not contain all information available regarding this patient. Last updated 18.[facility] Allergies No known active allergies Medications * Be aware that medications may not be up to date on this document. Alwaysverify current medications with the patient. finasteride (PROSCAR) 5 MG tablet Take 1 (one) tablet by mouth once daily 08/05/19 22 Active allopurinol (ZYLOPRIM) 100 MG tablet Take 1 (one) tablet by mouth once daily Active nitroGLYCERIN (NITROSTAT) 0.4 MG tablet Dissolve 1 (one) tablet under the tongue every 5 minutes as needed for Angina 03/08/20 21 Active pantoprazole EC (PROTONIX) 40 MG tablet Take 1 (one) tablet by mouth once daily 08/06/19 22 Active albuterol HFA (PROVENTIL; VENTOLIN; PROAIR) 108 (90 Base) MCG/ACT inhaler Inhale 2 (two) puffs by mouth every 6 hours as needed Active cyclobenzaprine (FLEXERIL) 5 MG tablet Take 1 (one) tablet by mouth 3 times daily as needed 11/02/19 22 Active TRELEGY ELLIPTA 100-62.5-25 MCG/INH Inhale 1 (one) puff by mouth once daily 10/31/19 22 Active polyethylene glycol 3350 (MIRALAX) 17 GM/SCOOP powder Take 1 (one) g by mouth once daily 05/10/19 22 Active latanoprost (XALATAN) 0.005 % ophthalmic solution [...] daily with morning and evening meal Active oxyCODONE HCl 15 MG TABA Take by mouth 2 times daily Active tamsulosin (Flomax) 0.4 MG capsule Take 1 (one) capsule by mouth once daily 10/07/19 24 Active Cosentyx Sensoready Pen 150 MG/ML auto-injector Inject 150 (one hundred fifty) mg subcutaneously every 28 days 05/10/19 25 Active naloxone HCl (Narcan) 4 MG/0.1ML nasal spray [place] 1 (one) spray into the nose as needed 06/03/19 24 Active triamcinolone acetonide (Kenalog) 0.1 % cream Apply to affected area as needed for Itching Active thiamine (Vitamin B-1) 100 MG tablet Take 1 (one) tablet by mouth once daily Active diclofenac sodium (Voltaren) 1 % gel Apply 4 (four) g to affected area 3 times daily 06/07/19 25 Active betamethasone dipropionate (Diprosone) 0.05 % cream Apply to affected area once daily as needed Active lactulose (Chronulac) 10 GM/15ML solutionIndicati ons:Alcoholic cirrhosis of liver without ascites (HCC) Take 15 mL by mouth 2 times daily as needed for Constipation 1419 mL 3 07/27/19 25 025 Active adalimumab (Humira) 40 MG/0.4ML injection Inject 0.4 mL subcutaneously every 14 days 06/14/19 23 025 Discontin ued(List Clean-Up) lactulose (Chronulac) 10 GM/15ML solutionIndicati ons:Alcoholic cirrhosis of liver without ascites (HCC) TAKE 15 ML BY MOUTH ONCE DAILY NEEDED FOR CONSTIPATION 1419 mL 1 04/09/20 24 025 Discontin ued(Reord er) Active Problems Problem Noted Date Diagnosed Date Alcoholic cirrhosis of liver with ascites 2021 Encounters Date Type Department Care Team Description 07/26/2024 3:00 PM CDT Office Visit [facility] [address] [place] [address] Clementine Veras APRN-CNP Alcoholic cirrhosis of liver without ascites (Primary Dx) 07/26/2024 1:51 PM CDT - 07/26/2024 11:59 PM CDT Hospital Encounter [facility] [address] [place] [address] Clementine Veras APRN-CNP Discharge Disposition: Home or Self Care 07/26/2024 1:14 PM CDT - 07/26/2024 1:50 PM CDT Hospital Encounter [facility] [address] [place] [address] Clementine Veras APRN-CNP Discharge Disposition: Home or Self Care 07/26/2024 Travel from Last 3 Months Family History Medical History Relation Name Comments Cancer - Pancreatic Brother Relation Name Status Comments Brother Social History Tobacco Use Types Packs/Day Years Used Date Smoking Tobacco: Former Cigarettes 0.3 55 1 966 - 202 Smokeless Tobacco: Never Tobacco Cessation:Counseling Given: Not Answered Alcohol Use Standard Drinks/Week Comments Not Currently 0 (1 standard drink = 0.6 oz pur e alcohol) quit Mar 2021 Sex and Gender Information Value Date Recorded Sex Assigned at Not on file Legal Sex Male 3:49 PM CDT Gender Identity Not on file Sexual Orientation Not on file Last Filed Vital Signs Vital Sign Reading Time Taken Comments Blood Pressure 117/78 07/26/2024 3:00 PM CDT Pulse 68 07/26/2024 3:00 PM CDT Temperature 36.4 C (97.6 F) 07/26/2024 3:00 PM CDT Respiratory Rate 18 02/10/2023 1:57 PM CDT Oxygen Saturation 98% 07/26/2024 3:00 PM CDT Inhaled Oxygen Concentration - - Weight 89 kg (196 lb 3.2 oz) 07/26/2024 3:00 PM CDT Height 175.3 cm (5' 9 ) 07/26/2024 3:00 PM CDT Body Mass Index 28.97 07/26/2024 3:00 PM CDT Plan of Treatment Upcoming Encounters Date Type Department Care Team (Late st Contact Info) Description 01/25/2025 1:[address] [facility] [address] [place] [phone] Clementine Veras APRN-ORGAN TEACHER [address] [place] [address] [address] [place] [address] 01/25/2025 2:30 PM CDT Office Visit [facility] [place] [address] [place] [address], [place] [phone] Clementine Veras APRN-ORGAN TEACHER [address] [place] [address] [address] [place] [address] Health Maintenance Due Date Last Done Comments [...] 60-74 years 1-dose series) 2019 COVID-19 VACCINE ( season) 2023 AAA SCREENING 02/02/2024 DEPRESSION SCREENING 04/28/2024 INFLUENZA VACCINE (Season Ended) 2024 05/08/2021 SCREENING FOR DIABETES 07/27/2027 , 02/10/2023, 08/08/2022, Additional history exists HIB VACCINE Aged Out [...] Patient-Stated? Author Medication Management General On track( 4:25 PM CDT) No Cynthia Valdez RN Note: Expected end date: ongoing Interventions: Take all medications as prescribed Safety General On track( 4:25 PM CDT) No Joan Cr, RN Note: Expected end date: ongoing Interventions: Your nurse will assess your risk for falls/injury each visit Use appropriate and safe transfer methods Make sure appropriate safety devices are available and within reach Be aware of medications that could predispose you to falling Wear non-skid/rubber sole footwear Wear glasses/hearing aid Keep personal items within easy reach Keep walking paths clutter free and clear Maintain an unobstructed path to the bathroom Make and keep follow-up appointments General On track( 4:25 PM CDT) No Joan Cr, port drier Procedure Name Priority Date/Time Associated Diagnosis Comments US ABDOMEN LIMITED Routine 07/27/2024 1: 28 PM CDT Alcoholic cirrhosis of liver without ascites PT-INR [facility] Routine 07/26/2024 2:16 PM CDT Alcoholic cirrhosis of liver without ascites ALPHA FETOPROTEIN BLOOD TUMOR MARKER Routine 07/26/2024 2:16 PM CDT Alcoholic cirrhosis of liver without ascites COMPREHENSIVE METABOLIC PANEL Routine 07/26/2024 2:16 PM CDT Alcoholic cirrhosis of liver without ascites CBC W AUTO DIFFERENTIAL Routine 07/26/2024 2:16 PM CDT Alcoholic cirrhosis of liver without ascites from Last 3 Months Results * US ABDOMEN LIMITED (07/27/2024 1:28 PM CDT) Anatomical Region Laterality Modality Abdomen Ultrasound 07/26/2024 1:56 PM CDT Impressions 07/26/2024 2:58 PM CDT Impression: Liver Visualization Score A: No or minimal limitations. US-1 Negative. Repeat surveillance US in 6 months. Report dictated by Adalberto Bell MD (interventional radiology tech) I, Yoshi Gudino MD have personally reviewed and interpreted this examination/study. > Interpreting Provider: Yoshi Gudino MD on 07/26/2024 2:58 PM Narrative 07/26/2024 2:58 PM CDT PROCEDURE: US ABDOMEN LIMITED, DATE/TIME OF EXAM: 07/26/2024 1:14 PM, LOCATION [facility] INDICATION: K70.30: Alcoholic cirrhosis of liver without ascites (HCC) ADDITIONAL CLINICAL INFORMATION: Ordering Provider Reason For Exam: HCC screening Technologist Note: Additional: COMPARISON: Ultrasound abdomen dated 10/28/2023 Findings Liver Visualization Score: No or minimal limitations in liver visualization Liver Morphology: The liver has a coarse echotexture and nodular surface. Liver Observations: None. Main Portal Vein: Color Doppler evaluation demonstrates patency of the main portal vein. Hepatic Veins: Color Doppler evaluation demonstrates patency of the hepatic veins. Bile Ducts: The common bile duct is nondilated, measuring 3 mm. No intrahepatic or extrahepatic biliary dilation. Gallbladder: No gallstones or pericholecystic fluid is seen.. Sonographic Plasencia's sign is negative. Ascites: No ascites is present. Spleen: The spleen measures 8.4 cm in length. Pancreas: The visible pancreas is normal in echogenicity. Right Kidney: The right kidney measures 10.4 cm in length. Limited views of the right kidney reveal no evidence of nephrolithiasis or hydronephrosis. No discrete mass identified. Procedure Note Yoshi Gudino MD - 07/26/2024 PROCEDURE: US ABDOMEN LIMITED, DATE/TIME OF EXAM: 07/26/2024 1:14 PM, LOCATION [facility] INDICATION: K70.30: Alcoholic cirrhosis of liver without ascites (HCC) ADDITIONAL CLINICAL INFORMATION: Ordering Provider Reason For Exam: HCC screening Technologist Note: Additional: COMPARISON: Ultrasound abdomen dated 10/28/2023 Findings Liver Visualization Score: No or minimal limitations in liver visualization Liver Morphology: The liver has a coarse echotexture and nodular surface. Liver Observations: None. Main Portal Vein: Color Doppler evaluation demonstrates patency of the main portal vein. Hepatic Veins: Color Doppler evaluation demonstrates patency of the hepatic veins. Bile Ducts: The common bile duct is nondilated, measuring 3 mm. No intrahepatic or extrahepatic biliary dilation. Gallbladder: No gallstones or pericholecystic fluid is seen.. Sonographic Plasencia'ssign is negative. Ascites: No ascites is present. Spleen: The spleen measures 8.4 cm in length. Pancreas: The visible pancreas is normal in echogenicity. Right Kidney: The right kidney measures 10.4 cm in length. Limited views of the right kidney reveal no evidence of nephrolithiasis or hydronephrosis. No discrete mass identified. Impression: Liver Visualization Score A: No or minimal limitations. US-1 Negative. Repeat surveillance US in 6 months. Report dictated by Adalberto Bell MD (interventional radiology tech) I, Yoshi Gudino MD have personally reviewed and interpreted this examination/study. > Interpreting Provider: Yoshi Gudino MD on 52:58 PM us Clementine Veras CLINICAL TRIAL SPECIALIST-ORGAN TEACHER US ORDERABLES Fin al Result * (ABNORMAL) PT-INR [facility] (07/26/2024 2:16 PM CDT) PT 16.6(H) 12.1 - 14.8 Seconds 07/26/2024 2:41 PM CDT [facility] INR 1.4 See Comment 07/26/2024 2:[address] [facility] Comment:The suggested therap eutic range for standard coumadin (warfarin) therapy is an INR of 2.0-3.0. For high-risk patients (Mechanical Mitral Valve Prosthesis, etc.), the suggested prophylactic therapeutic range is an INR of 2.5-3.5. Blood BLOOD SPECIMEN / Unknown Lab Venipuncture / Unknown 07/26/2024 2:16 PM CDT 07/26/2024 2:18 PM CDT Clementine Veras APRN-ORGAN TEACHER LAB - COAGULATION O RDERABLES Final Result Performing Organization Address [facility] Co de Phone Number [address] [address], [place] [phone] * ALPHA FETOPROTEIN BLOOD TUMOR MARKER (07/26/2024 2:16 PM CDT) [facility] Alpha-Fetoprote in Tumor Marker 2.0 <=8.3 ng/mL 07/26/2024 3:[address] [facility] Comment: AFP values will vary depending on testing procedure used. Results are not comparable across different methods. AFP values obtained by [facility] using an Blevins Alinity Immunoassay. Blood BLOOD SPECIMEN / Unknown Lab Venipuncture / Unknown 07/26/2024 2:16 PM CDT 07/26/2024 2:21 PM CDT Clementine Veras APRN-ORGAN TEACHER LAB - CHEMISTRY ORD ERABLES Final Result Performing Organization Address [facility]/ZIP Co de Phone Number [address] [address], [place] [phone] * CBC WITH DIFFERENTIAL (07/26/2024 2:16 PM CDT) [facility] WBC 7.2 4.0 - 10.7 x10E9/L 07/26/2024 2:29 PM [facility] RBC Count 4.80 4.30 - 5.80 x10E12/L 07/26/2024 2:29 PM [facility] Hemoglobin 15.0 13.3 - 17.5 g/dL 07/26/2024 2:29 PM [facility] Hematocrit 44.8 38.7 - 51.1 % 07/26/2024 2:29 PM [facility] MCV 93.3 80.0 - 98.0 fL 07/26/2024 2:29 PM [facility] MCH 31.3 26.7 - 33.6 pg 07/26/2024 2:29 PM [facility] MCHC 33.5 31.7 - 36.3 g/dL 07/26/2024 2:29 PM [facility] RDW-CV 13.8 11.3 - 14.8 % 07/26/2024 2:29 PM [facility] Platelet Count 164 150 - 420 x10E9/L 07/26/2024 2:29 PM [facility] MPV 9.9 7.8 - 11.4 fL 07/26/2024 2:29 PM [facility] Neutrophil % 61.6 41.0 - 74.0 % 07/26/2024 2:29 PM [facility] Lymphocyte % 25.3 17.0 - 47.0 % 07/26/2024 2:29 PM [facility] Monocyte % 9.4 3.0 - 11.0 % 07/26/2024 2:29 PM [facility] Eosinophil % 2.8 0.0 - 7.0 % 07/26/2024 2:29 PM [facility] Basophil % 0.6 0.0 - 1.6 % 07/26/2024 2:29 PM [facility] Immature Granulocytes % 0.3 0.0 - 1.0 % 07/26/2024 2:29 PM [facility] Neutrophil Absolute 4.42 1.60 - 7.50 x10E9/L 07/26/2024 2:29 PM [facility] Lymphocyte Absolute 1.81 1.00 - 4.40 x10E9/L 07/26/2024 2:[address] [facility] Monocyte Absolute 0.67 0.15 - 1.00 x10E9/L 07/26/2024 2:[address] [facility] Eosinophil Absolute 0.20 0.00 - 0.60 x10E9/L 07/26/2024 2:[address] [facility] Basophil Absolute 0.04 0.00 - 0.13 x10E9/L 07/26/2024 2:[address] [facility] Blood BLOOD SPECIMEN / Unknown Lab Venipuncture / Unknown 07/26/2024 2:16 PM CDT 07/26/2024 2:21 PM CDT us Clementine Veras CLINICAL TRIAL SPECIALIST-ORGAN TEACHER LAB - HEMATOLOGY OR DERABLES Final Result [facility] [address] [place] [address], [facility] [phone] * (ABNORMAL) COMPREHENSIVE METABOLIC PANEL (07/26/2024 2:16 PM CDT) BUN 9 7 - 26 mg/dL 07/26/2024 2:46 PM [facility] Creatinine 1.12 0.71 - 1.16 mg/dL 07/26/2024 2:46 PM [facility] Sodium 139 136 - 145 mmol/L 07/26/2024 2:46 PM [facility] Potassium 4.3 3.5 - 4.5 mmol/L 07/26/2024 2:46 PM [facility] Chloride 105 98 - 107 mmol/L 07/26/2024 2:46 PM [facility] CO2 28 22 - 29 mmol/L 07/26/2024 2:46 PM [facility] Glucose 94 70 - 99 mg/dL 07/26/2024 2:46 PM [facility] Calcium 9.8 8.4 - 10.2 mg/dL 07/26/2024 2:46 PM [facility] Protein Total 7.9 6.0 - 8.3 g/dL 07/26/2024 2:46 PM [facility] Albumin 4.1 3.4 - 5.0 g/dL 07/26/2024 2:46 PM [facility] Bilirubin Total 0.5 0.2 - 1.2 mg/dL 07/26/2024 2:46 PM [facility] Alkaline Phosphatase 88 40 - 150 U/L 07/26/2024 2:46 PM [facility] ALT 10 5 - 55 U/L 07/26/2024 2:46 PM [facility] AST 18 5 - 34 U/L 07/26/2024 2:46 PM [facility] Anion Gap 6 6 - 16 07/26/2024 2:46 PM [facility] BUN/Creatinine Ratio 8 7 - 23 07/26/2024 2:46 PM [facility] Osmolality Calculated 286 275 - 295 mOsm/kg 07/26/2024 2:46 PM [facility] Albumin/Globulin Ratio 1.1 1.1 - 2.3 07/26/2024 2:46 PM [facility] eGFR by CKD-EPI 73(L) >=90 mL/min/1.7 3 m2 07/26/2024 2:46 PM [facility] Blood BLOOD SPECIMEN / Unknown Lab Venipuncture / Unknown 07/26/2024 2:16 PM CDT 07/26/2024 2:21 PM CDT Clementine Veras CLINICAL TRIAL SPECIALIST-ORGAN TEACHER LAB - CHEMISTRY ORD ERABLES Final Result [facility] [address] [place] [address], [facility] [phone] from Last 3 Months Insurance MEDICARE [facility] MEDICARE [facility] Care Teams Distribution District Supervisor Relationship Specialty Start Date End Date Consuelo Villareal MD [address] [place] [phone] PCP - General Internal Medicine 10/02/21 Hardik Frye MD [address] [place] [address] Gastroenterology 10/09/21 Carlo Penaloza MD [address] [facility] [phone] [place] [address] General Surgery 01/31/22
--- OUTSIDE RECORDS SUMMARY | 2024-08-24 14:26 | XMS_ITS | Encounter Summary ---
Author Organization [facility] Address [address] [place] [address] Care Team Providers Care Body Design Checker Name Role Phone New Referring, Provider Primary Care Provider Un available Encounter Details Date Type Department Care Team (Late st Contact Info) Description 10/03/2018 Abstract SFL CONVERSION [address] [place] [address] , Generic Conversion, Social History Tobacco Use [...] on filedocumented in this encounter Care Teams Body Design Checker Relationship Specialty Start Date End Date New Referring, Provider PCP - General UNKNOWN PHYSICIAN SPECIALTY 05/24/19 documented as of this encounter
--- OUTSIDE RECORDS SUMMARY | 2024-08-24 14:26 | XMS_ITS | Clinical Summary ---
Author Organization [facility] Address [facility] [place] [address] Care Team Providers Care Plastic Battery Assembler Name Role Phone New Referring, Provider Primary [...] Comments Blood Pressure 122/79 05/26/2019 12:20 PM MACHINE II ENGRAVER Pulse 84 05/26/2019 12:20 PM MACHINE II ENGRAVER Temperature 36.6 C (97.8 F) 05/26/2019 12:20 PM MACHINE II ENGRAVER Respiratory Rate 18 05/26/2019 12:20 PM MACHINE II ENGRAVER Oxygen Saturation 98% 05/26/2019 12:20 PM MACHINE II ENGRAVER Inhaled Oxygen Concentration - - Weight 92.1 kg (203 lb) 05/24/2019 2:21 PM MACHINE II ENGRAVER Height 174 cm (5' 8.5 ) 05/24/2019 2:21 PM MACHINE II ENGRAVER Body Mass Index 30.41 05/24/2019 2:21 PM MACHINE II ENGRAVER Plan of Treatment Health Maintenance Due Date Last Done Comments Colorectal Cancer Screening Colonoscopy (10 Years) 1959 Hepatitis C 1977 DTaP, Tdap and Td Vaccines ( 1 - Tdap) 1978 Pneumococcal Vaccine: 50+ Ye ars (1 of 2 - PCV) 1978 Zoster Vaccines (1 of 2) 2009 COVID-19 Vaccine ( - 2023-2 5 season) 2023 RSV Immunization or 60+ Years (1 - [...] 12:18 PM 05/26/2019 3:42 PM Care Teams Plastic Battery Assembler Relationship Specialty Start Date End Date New Referring, Provider PCP - General UNKNOWN PHYSICIAN SPECIALTY 05/24/19
== END 2024-08-24 13:15 | disposition home or self-care (01) ==
LOC: CHSLAB 13:17
PROVIDERS: PCP Internal Medicine; Visit Provider Internal Medicine
DX: N18.2 Chronic kidney disease, stage 2 (mild) (principal)
CPT/HCPCS: 36415; 80048; 81001

== ENCOUNTER 2024-09-24 11:07 | Outpatient (CLI) | payer MEDICARE, SELFPAY ==
--- OUTSIDE RECORDS SUMMARY | 2024-09-24 11:17 | XMS_ITS | Encounter Summary ---
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
--- OUTSIDE RECORDS SUMMARY | 2024-09-24 11:17 | XMS_ITS | Encounter Summary ---
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
--- OUTSIDE RECORDS SUMMARY | 2024-09-24 11:17 | XMS_ITS | Encounter Summary ---
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
--- OUTSIDE RECORDS SUMMARY | 2024-09-24 11:17 | XMS_ITS | Encounter Summary ---
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
--- OUTSIDE RECORDS SUMMARY | 2024-09-24 11:17 | XMS_ITS | Encounter Summary ---
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
--- OUTSIDE RECORDS SUMMARY | 2024-09-24 11:17 | XMS_ITS | Encounter Summary ---
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
--- OUTSIDE RECORDS SUMMARY | 2024-09-24 11:17 | XMS_ITS | Referral Summary ---
Author Organization [facility] Address [address] [place] [address] Care Team Providers Care Voip Engineer Name Role Phone Consuelo Villareal MD Primary Care Provider Edelmira Balderas MD Unavailable Allergies No known active allergies Medications aspirin 81 mg tablet Take 1 tablet (81 mg total) by mouth every morning Last dose 05/12/22 9 Active latanoprost (XALATAN) 0.005 % ophthalmic solution Administer 1 drop into both eyes nightly Active apixaban (ELIQUIS) 5 mg tablet Take 1 tablet (5 mg total) by mouth 2 (two) times a day. 60 tablet 1 8 Active finasteride (PROSCAR) 5 mg tablet TAKE 1 TABLET BY MOUTH EVERY DAY 30 tablet 5 8 Active PROAIR HFA 90 mcg/actuation inhaler INHALE 2 PUFFS BY MOUTH EVERY 4 TO 6 HOURS NEEDED 17 Inhaler 4 8 Active allopurinol (ZYLOPRIM) 100 mg tablet TAKE ONE TABLET BY MOUTH DAILY 90 tablet 3 9 Active fluticasone-umecl idin-vilanter (TRELEGY ELLIPTA) 100-62.5-25 mcg inhaler Inhale 1 puff daily 30 each 1 2 Active furosemide (LASIX) 20 mg tablet Take 1 tablet (20 mg total) by mouth daily 30 tablet 11 2 Active cyclobenzaprine (FLEXERIL) 5 mg tablet Take 1 tablet (5 mg total) by mouth 3 (three) times a day as needed for muscle spasms 25 tablet 2 Active amLODIPine (NORVASC) 10 mg tablet Take 1 tablet (10 mg total) by mouth daily 30 tablet 2 Active carvediloL (COREG) 25 mg tablet Take 1 tablet (25 mg total) by mouth 2 (two) times a day with meals 60 tablet [address] (PROTONIX) 40 mg EC tabletIndications :home med Take 1 tablet (40 mg total) by mouth daily 30 tablet 2 Active lactulose 0.67 gram/mL solution Take by mouth as needed 2 Active nitroglycerin (NITROSTAT) 0.4 mg SL tablet 2 Active polyethylene glycol (MIRALAX) 17 gram/dose powder Take 1 g by mouth every morning 2 Active triamcinolone (KENALOG) 0.1 % cream Apply topically as needed Active betamethasone dipropionate (DEL-BETA) 0.05 % cream Apply topically as needed Active naloxone (NARCAN) 4 mg/actuation spray,non-aerosol Administer 1 spray into affected nostril(s) as needed 4 Active oxyCODONE (ROXICODONE) 5 mg immediate release tablet Take 1 tablet (5 mg total) by mouth as directed for pain 5 Active diclofenac sodium (VOLTAREN) 1 % gel Apply 4 g topically 3 (three) times a day 100 g 5 5 Active Cosentyx Pen pen injectorIndicatio ns:Ankylosing spondylitis of multiple sites in spine (HCC) INJECT 150MG (1PEN) UNDER THE SKIN EVERY 4 WEEKS 1 mL 2 5 Active Active Problems Problem Noted Date Diagnosed [...] (09/21/2021): Added automatically from request for surgery [id number] Assessment & Plan (09/24/2021 10:42 AM CDT): [...] Plan (01/23/2022 10:57 AM CDT): Hx of OR. S/p CABG in 2006 -Continue home aspirin. [...] on file Legal Sex Male 1:47 AM AUTO GLASS TECHNICIAN Gender Identity Not on file Sexual Orientation Not on file Last Filed Vital Signs Vital Sign Reading Time Taken Comments Blood Pressure 132/85 06/07/2024 10:00 AM AUTO GLASS TECHNICIAN Pulse 63 06/07/2024 10:00 AM AUTO GLASS TECHNICIAN Temperature 36.7 C (98 F) 06/07/2024 10:00 AM AUTO GLASS TECHNICIAN Respiratory Rate 16 05/15/2022 5:00 PM AUTO GLASS TECHNICIAN Oxygen Saturation 97% 06/07/2024 10:00 AM AUTO GLASS TECHNICIAN Inhaled Oxygen Concentration - - Weight 93.9 kg (207 lb) 06/07/2024 10:00 AM AUTO GLASS TECHNICIAN Height 172.7 cm (5' 8) 06/07/2024 10:00 AM AUTO GLASS TECHNICIAN Body Mass Index 31.47 06/07/2024 10:00 AM AUTO GLASS TECHNICIAN Plan of Treatment Not on file Goals [...] as needed Medical Devices Implanted Type Area Button Grader Device Identifier Shelf Expiration Date Model / Serial / Lot CodCoinKeeper/[employer] Trufill Glue 1gm Nbca [id number] - [id number] Implanted:Qty: 1 on 05/15/2022 at [facility] [employer] 02/26/2024 [id number] / / [id number] [address] Angio-Seal Vip 6fr Closere Device [id number] - [id number] Implanted:Qty: 1 on 05/15/2022 at [facility] [address] 02/25/2023 [id number] / / [id number] Procedures Procedure Name Priority Date/Time Associated Diagnosis Comments CTA ABDOMEN PELVIS W WO CONTRAST Schedule Routine, Read Routine (OP Routine) 06/11/2022 1:10 PM AUTO GLASS TECHNICIAN Aneurysm of visceral artery HEPATITIS C ANTIBODY Routine 05/09/2021 3:08 PM AUTO GLASS TECHNICIAN COLONOSCOPY REPORT 05/31/2013 from Last 3 Months or Most Recently Relevant to Health Maintenance Results * CTA Abdomen Pelvis (06/11/2022 1:10 PM AUTO GLASS TECHNICIAN) Anatomical Region Laterality Modality Body N/A Computed Tomogra phy 06/11/2022 2:20 PM AUTO GLASS TECHNICIAN Impressions 06/11/2022 2:21 PM AUTO GLASS TECHNICIAN 1. Decreased size of a superior pancreaticoduodenal [...] Homa Neal M.D. Narrative 06/11/2022 2:21 PM AUTO GLASS TECHNICIAN EXAMINATION: CTA ABDOMEN PELVIS HISTORY: 62-year-old with [...] * Hepatitis C antibody (05/09/2021 3:08 PM AUTO GLASS TECHNICIAN) Hep C Ab Nonreactive Nonreactive [facility] Comment:Antibodies to HCV no t detected. Does NOT exclude the possibility of recent exposure to HCV. Blood 05/09/2021 3:08 PM AUTO GLASS TECHNICIAN 05/09/2021 3:38 PM AUTO GLASS TECHNICIAN Pratima Morales MD LAB MICROBIOLOGY - GENERAL ORD ERABLES Edited Result - Final [facility] [place] [address] * COLONOSCOPY REPORT (05/31/2013) Anatomical Region Laterality Modality Other Narrative 05/31/2013 Ordered by an unspecified provider. us Historical Provider GI PROCEDURE ORDERABLES F inal Result from Last 3 Months or Most Recently Relevant to Health Maintenance Insurance MEDICARE IDPA MEDICARE IDPA MANAGED MEDICARE GENERIC RISK OTHER [facility] [place] [facility] [place] [place] Advance Directives For more information, please contact: [phone] * Full Code (Latest Code Status on File) Date Activated Date Inactivated Comments 01/20/2022 6:40 AM 01/25/2022 2:33 PM * Full Code Date Activated Date Inactivated Comments 09/22/2021 4:08 AM 09/24/2021 6:55 PM * Full Code Date Activated Date Inactivated Comments 05/08/2021 5:39 PM 05/10/2021 9:30 PM Care Teams Voip Engineer Relationship Specialty Start Date End Date Consuelo Villareal MD [address] [place] [address] PCP - General 05/07/21 Edelmira Balderas MD [address] [place] [address] Consulting Physician Vascular Surgery 01/25/22
--- OUTSIDE RECORDS SUMMARY | 2024-09-24 11:17 | XMS_ITS | Encounter Summary ---
Author Organization [facility] Address [address] [place] [address] Phone Care Team Providers Care Strip Feeder Name Role Phone Raymond Prescott MD Primary Care Provider Consuelo Villareal MD Primary Care Provider [phone] Edelmira Balderas MD Unavailable [phone] Encounter Details Date Type Department Care Team [...] on file Legal Sex Male 1:47 AM MFT Gender Identity Not on file Sexual Orientation [...] documented as of this encounter Care Teams Strip Feeder Relationship Specialty Start Date End Date Raymond Prsecott MD [address] [facility] [address] [place] [address] PCP - General 06/19/19 05/06/21 Consuelo Villareal MD [address] [place] [address] PCP - General 05/07/21 Edelmira Balderas MD [address] [place] [address] Consulting Physician Vascular Surgery 01/25/22 documented as of this encounter
--- OUTSIDE RECORDS SUMMARY | 2024-09-24 11:17 | XMS_ITS | Encounter Summary ---
Author Organization [facility] Address [address] [place] [address] Care Team Providers Care Hospital Administrator Name Role Phone Consuelo Villareal MD Primary Care Provider [phone] Hardik Frye MD Unavailable [phone] Carlo Penaloza MD Unavailable [phone] Reason for Visit * Reason Comments Refill Request Encounter Details Date Type Department Care Team (Late Contact Info) Description 09/22/2024 Refill [facility] - [address] [facility] [place] [phone] Clementine Veras, PRESSURE WASHER-WATER RESOURCE ENGINEER [address] [place] [address] Refill Request Social History Tobacco Use Types Packs/Day Years Used Date Smoking Tobacco: Former Cigarettes 0.3 55 1 966 - 2020 Smokeless Tobacco: Never Alcohol Use Standard Drinks/Week Comments Not Currently 0 (1 standard drink = 0.6 oz pur e alcohol) quit Mar 2021 Sex and Gender Information Value Date Recorded Sex Assigned at Not on file Legal Sex Male 3:49 PM CDT Gender Identity Not on file Sexual Orientation Not on file documented as of this encounter Plan of Treatment Upcoming Encounters Date Type Department Care Team ([facility] Contact Info) Description 01/25/2025 1:45 PM CDT Appointment [facility] [address] [place] [phone] Clementine Veras, PRESSURE WASHER-WATER RESOURCE ENGINEER [address] [facility] [address] [place] [address] 01/25/2025 2:30 PM CDT Office Visit [facility] - GI [address] [facility] [place] [address] Eda Clementine Anurag, PRESSURE WASHER-WATER RESOURCE ENGINEER [address] [facility] [address] [place] [address] documented as of this encounter Goals Goal Patient Goal Type Associated Problems Recent Progress Patient-Stated? Author Medication Management General On track( 4:25 PM CDT) No Cynthia Valdez RN Note: Expected end date: ongoing Interventions: Take all medications as prescribed Safety General On track( 4:25 PM CDT) No Joan Cr, MIGUEL Note: Expected end date: ongoing Interventions: Your [...] and keep follow-up appointments General On track( 025 4:25 PM CDT) No Joan Cr, RN documented as of this encounter Visit Diagnoses Diagnosis Alcoholic cirrhosis of liver without ascites (HCC) Alcoholic cirrhosis of liver documented in this encounter Care Teams Hospital Administrator Relationship Specialty Start Date End Date Consuelo Villareal MD [address] [place] [address] PCP - General Internal Medicine 10/02/21 Hardik Frye MD [address] [place] [address] Gastroenterology 10/09/21 Carlo Penaloza MD [address] [phone] [place] [address] General Surgery 01/31/22 documented as of this encounter
--- OUTSIDE RECORDS SUMMARY | 2024-09-24 11:17 | XMS_ITS | Clinical Summary ---
Author Organization [facility] Address [address] [place] [address] Care Team Providers Care Chemical Processing Technician Name Role Phone Consuelo Villareal MD Primary Care Provider [phone] Hardik Frye MD Unavailable [phone] Carlo Penaloza MD Unavailable [phone] Source Comments [facility],non-owned Affiliates and Associated Physician Practices is amultiple site organization consisting of ambulatory clinics and hospital sitesin [place], [place], [place] and [place]. This disclosure is being madepursuant to the Care Everywhere program and may not contain all information available regarding this patient. Last updated 18.[facility] Allergies No known active allergies Medications * [...] naloxone HCl (Narcan) 4 MG/0.1ML nasal spray Brun[place] 1 (one) spray into the nose as [...] 1419 mL 3 07/27/19 25 025 Active Active Problems Problem Noted Date Diagnosed Date Alcoholic cirrhosis of liver with ascites 2021 Encounters Date Type Department Care Team Description 09/22/2024 Refill [facility] - GI [address] [place] [address] Clementine Veras APRN-CNP Refill Request 07/26/2024 3:00 PM CDT Office Visit [facility] - GI [address] [place] [address] Clementine Veras APRN-CNP Alcoholic cirrhosis of liver without ascites (Primary Dx) 07/26/2024 1:51 PM CDT - 07/26/2024 11:59 PM CDT Hospital Encounter [facility] OP DRAW STATION [address] [place] [address] Clementine Veras APRN-CNP Discharge Disposition: Home or Self Care 07/26/2024 1:14 PM CDT - 07/26/2024 1:50 PM CDT Hospital Encounter [facility] [address] [place] [address] Clementine Veras APRN-CNP Discharge Disposition: Home or [...] 3:00 PM CDT Height 175.3 cm (5' 9) 07/26/2024 3:00 PM CDT Body Mass Index 28.97 07/26/2024 3:00 PM CDT Plan of Treatment Upcoming Encounters Date Type Department Care Team (Late st Contact Info) Description 01/25/2025 1:45 PM CDT Appointment [facility] [address] [place] [phone] Clementine Veras, CERAMIC ENGINEER-TREASURY MANAGEMENT SALES CONSULTANT [address] [place] [address] [address] [place] [address] 01/25/2025 2:30 PM CDT Office [place] [facility] [place] [address] [place] [address], [place] [phone] Clementine Veras, CERAMIC ENGINEER-TREASURY MANAGEMENT SALES CONSULTANT [address] [place] [address] [address] [place] [address] Health Maintenance Due Date Last Done Comments [...] 2019 COVID-19 VACCINE (1 - season) 2023 AAA SCREENING 02/02/2024 DEPRESSION SCREENING [...] track( 4:25 PM CDT) No Joan Cr, process safety engineering technologist Procedure Name Priority Date/Time Associated Diagnosis Comments [...] Anatomical Region Laterality Modality Abdomen Ultrasound 07/26/2024 1:5 6 PM CDT Impressions 07/26/2024 2:58 PM CDT Impression: Liver Visualization Score A: No or minimal limitations. US-1 Negative. Repeat surveillance US in 6 months. Report dictated by Adalberto Bell MD (residential interior designer) I, Yoshi Gudino MD have personally reviewed and interpreted this examination/study. > Interpreting Provider: Yoshi Gudino MD on 07/26/2024 2:58 PM Narrative 07/26/2024 2:58 PM CDT PROCEDURE: US ABDOMEN LIMITED, DATE/TIME OF EXAM: 07/26/2024 1:14 PM, LOCATION [facility] INDICATION: K70.30: Alcoholic cirrhosis of liver without [...] DATE/TIME OF EXAM: 07/26/2024 1:14 PM, LOCATION [facility] INDICATION: K70.30: Alcoholic cirrhosis of liver without [...] months. Report dictated by Adalberto Bell MD (residential interior designer) I, Yoshi Gudino MD have personally reviewed and interpreted this examination/study. > Interpreting Provider: Yoshi Gudino MD on 52:58 PM us Clementine Veras CERAMIC ENGINEER-TREASURY MANAGEMENT SALES CONSULTANT US ORDERABLES Fin al Result * (ABNORMAL) PT-INR [facility] (07/26/2024 2:16 PM CDT) PT 16.6(H) 12.1 - 14.8 Seconds 07/26/2024 2:41 PM CDT [facility] INR 1.4 See Comment 07/26/2024 2:41 PM CDT [facility] Comment:The suggested therap eutic range for standard coumadin (warfarin) therapy is an INR of 2.0-3.0. For high-risk patients (Mechanical Mitral Valve Prosthesis, etc.), the suggested prophylactic therapeutic range is an INR of 2.5-3.5. Blood BLOOD SPECIMEN / Unknown Lab Venipuncture / Unknown 07/26/2024 2:16 PM CDT 07/26/2024 2:18 PM CDT Clementine [facility] - COAGULATION O RDERABLES Final Result Performing Organization Address [facility]/ZIP Co de Phone Number [address] [address], [place] [phone] * ALPHA FETOPROTEIN BLOOD TUMOR MARKER (07/26/2024 2:16 PM CDT) [facility] Alpha-Fetoprote in Tumor Marker 2.0 <=8.3 ng/mL 07/26/2024 3:05 PM CDT [facility] Comment: AFP values will vary depending on testing procedure used. Results are not comparable across different methods. AFP values obtained by [facility] using an Camalize SLniContestMachine Immunoassay. Blood BLOOD SPECIMEN / Unknown Lab Venipuncture / Unknown 07/26/2024 2:16 PM CDT 07/26/2024 2:21 PM CDT Clementine Veras [facility] - CHEMISTRY ORD ERABLES Final Result Performing Organization Address City/[facility]/ZIP Co de Phone Number [facility] [address] [place] [address], [place] [phone] * CBC WITH DIFFERENTIAL (07/26/2024 2:16 PM CDT) [facility] WBC 7.2 4.0 - 10.7 x10E9/L 07/26/2024 2:29 PM CDT [facility] RBC Count 4.80 4.30 - 5.80 x10E12/L 07/26/2024 2:29 PM CDT [facility] Hemoglobin 15.0 13.3 - 17.5 g/dL 07/26/2024 2:29 PM [facility] Hematocrit 44.8 38.7 - 51.1 % 07/26/2024 2:29 PM [facility] MCV 93.3 80.0 - 98.0 fL 07/26/2024 2:29 PM [facility] MCH 31.3 26.7 - 33.6 pg 07/26/2024 2:29 PM [facility] MCHC 33.5 31.7 - 36.3 g/dL 07/26/2024 2:29 PM [facility] RDW-CV 13.8 11.3 - 14.8 % 07/26/2024 2:29 PM [facility] Platelet Count 164 150 - 420 x10E9/L 07/26/2024 2:29 PM [facility] MPV 9.9 7.8 - 11.4 fL 07/26/2024 2:29 PM [facility] Neutrophil % 61.6 41.0 - 74.0 % 07/26/2024 2:29 PM [facility] Lymphocyte % 25.3 17.0 - 47.0 % 07/26/2024 2:29 PM [facility] Monocyte % 9.4 3.0 - 11.0 % 07/26/2024 2:29 PM [facility] Eosinophil % 2.8 0.0 - 7.0 % 07/26/2024 2:29 PM [facility] Basophil % 0.6 0.0 - 1.6 % 07/26/2024 2:29 PM [facility] Immature Granulocytes % 0.3 0.0 - 1.0 % 07/26/2024 2:29 PM [facility] Neutrophil Absolute 4.42 1.60 - 7.50 x10E9/L 07/26/2024 2:29 PM [facility] Lymphocyte Absolute 1.81 1.00 - 4.40 x10E9/L 07/26/2024 2:29 PM [facility] Monocyte Absolute 0.67 0.15 - 1.00 x10E9/L 07/26/2024 2:29 PM [facility] Eosinophil Absolute 0.20 0.00 - 0.60 x10E9/L 07/26/2024 2:29 PM [facility] Basophil Absolute 0.04 0.00 - 0.13 x10E9/L 07/26/2024 2:29 PM [facility] Blood BLOOD SPECIMEN / Unknown Lab Venipuncture / Unknown 07/26/2024 2:16 PM CDT 07/26/2024 2:21 PM CDT us Clementine Veras CERAMIC ENGINEER-TREASURY MANAGEMENT SALES CONSULTANT LAB - HEMATOLOGY OR DERABLES Final Result [facility] [address] [place] [address], [facility] [phone] * (ABNORMAL) COMPREHENSIVE METABOLIC PANEL (07/26/2024 2:16 PM CDT) BUN 9 7 - 26 mg/dL 07/26/2024 2:46 PM [facility] Creatinine 1.12 0.71 - 1.16 mg/dL 07/26/2024 2:46 PM [facility] Sodium 139 136 - 145 mmol/L 07/26/2024 2:46 PM [facility] Potassium 4.3 3.5 - 4.5 mmol/L 07/26/2024 2:46 PM [facility] Chloride 105 98 - 107 mmol/L 07/26/2024 2:46 PM [facility] CO2 28 22 - 29 mmol/L 07/26/2024 2:46 PM [facility] Glucose 94 70 - 99 mg/dL 07/26/2024 2:46 PM [facility] Calcium 9.8 8.4 - 10.2 mg/dL 07/26/2024 2:46 PM [facility] Protein Total 7.9 6.0 - 8.3 g/dL 07/26/2024 2:46 PM [facility] Albumin 4.1 3.4 - 5.0 g/dL 07/26/2024 2:46 PM [facility] Bilirubin Total 0.5 0.2 - 1.2 mg/dL 07/26/2024 2:46 PM [facility] Alkaline Phosphatase 88 40 - 150 U/L 07/26/2024 2:46 PM [facility] ALT 10 5 - 55 U/L 07/26/2024 2:46 PM [facility] AST 18 5 - 34 U/L 07/26/2024 2:46 PM [facility] Anion Gap 6 6 - 16 07/26/2024 2:46 PM [facility] BUN/Creatinine Ratio 8 7 - 23 07/26/2024 2:46 PM T [facility] Osmolality Calculated 286 275 - 295 mOsm/kg 07/26/2024 2:46 PM [facility] Albumin/Globulin Ratio 1.1 1.1 - 2.3 07/26/2024 2:46 PM [facility] eGFR by CKD-EPI 73(L) >=90 mL/min/1.7 3 m2 07/26/2024 2:46 PM [facility] Blood BLOOD SPECIMEN / Unknown Lab Venipuncture / Unknown 07/26/2024 2:16 PM CDT 07/26/2024 2:21 PM CDT Clementine Veras CERAMIC ENGINEER-TREASURY MANAGEMENT SALES CONSULTANT LAB - CHEMISTRY ORD ERABLES Final Result [facility] [address] [place] [address], [facility] [phone] from Last 3 Months [place] [address] [facility] MEDICARE [facility] Care Teams Chemical Processing Technician Relationship Specialty Start Date End Date Consuelo Villareal MD [address] [place] [address] PCP - General Internal Medicine 10/02/21 Hardik Frye MD [address] [place], [place] [address] Gastroenterology 10/09/21 Carlo Penaloza MD [address] [phone] [place] [address] General Surgery 01/31/22
--- OUTSIDE RECORDS SUMMARY | 2024-09-24 11:17 | XMS_ITS | Encounter Summary ---
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
--- OUTSIDE RECORDS SUMMARY | 2024-09-24 11:17 | XMS_ITS | Encounter Summary ---
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
--- OUTSIDE RECORDS SUMMARY | 2024-09-24 11:17 | XMS_ITS | Encounter Summary ---
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
--- OUTSIDE RECORDS SUMMARY | 2024-09-24 11:17 | XMS_ITS | Encounter Summary ---
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
--- OUTSIDE RECORDS SUMMARY | 2024-09-24 11:17 | XMS_ITS | Encounter Summary ---
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
--- OUTSIDE RECORDS SUMMARY | 2024-09-24 11:17 | XMS_ITS | Encounter Summary ---
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
--- OUTSIDE RECORDS SUMMARY | 2024-09-24 11:18 | XMS_ITS | Clinical Summary ---
Author Organization [facility] Address [address] [place] [address] Care Team Providers Care Barrelhead Inspector Name Role Phone Consuelo Villareal MD Primary Care Provider Edelmira Balderas MD Unavailable [phone] Allergies No known active allergies Medications aspirin [...] (09/21/2021): Added automatically from request for surgery [id number] Assessment & Plan (09/24/2021 10:42 AM CDT): [...] Plan (01/23/2022 10:57 AM CDT): Hx of MS. S/p CABG in 2006 -Continue home aspirin. 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 x2 09/01 at [facility] to D2/LAD (Added by TW Conv) Asthma [...] on file Legal Sex Male 1:47 AM SPORTS STATISTICIAN Gender Identity Not on file Sexual Orientation Not on file Obstetrics History Last Filed Vital Signs Vital Sign Reading Time Taken Comments Blood Pressure 132/85 06/07/2024 10:00 AM SPORTS STATISTICIAN Pulse 63 06/07/2024 10:00 AM SPORTS STATISTICIAN Temperature 36.7 C (98 F) 06/07/2024 10:00 AM SPORTS STATISTICIAN Respiratory Rate 16 05/15/2022 5:00 PM SPORTS STATISTICIAN Oxygen Saturation 97% 06/07/2024 10:00 AM SPORTS STATISTICIAN Inhaled Oxygen Concentration - - Weight 93.9 kg (207 lb) 06/07/2024 10:00 AM SPORTS STATISTICIAN Height 172.7 cm (5' 8) 06/07/2024 10:00 AM SPORTS STATISTICIAN Body Mass Index 31.47 06/07/2024 10:00 AM SPORTS STATISTICIAN Plan of Treatment Health Maintenance Due Date [...] - 2023-2 5 season) 2023 11/15/2020, 10/25/2020 Abdominal Aortic Aneurysm (A AA) Screen 02/02/2024 06/11/2022, 04/12/2022, 01/21/2022, Additional history exists Well Visit 65+ 02/02/2024 Influenza Vaccine (Season Ended) 2024 01/01/2022, 05/08/2021, 01/28/2020, Additional history exists Colon Cancer Screening-CT Colonography Discontinued 05/31/2013 Colon Cancer Screening-DNA Stool Discontinued 05/31/19 14 Colon Cancer Screening-FIT Discontinued 05/31/2013 Colon Cancer Screening-Sigmoidoscopy Discontinued 05/31/2013 Hepatitis C Screening Completed 05/09/2021 , 02/23/2016, 08/19/2014 Goals Goal Patient Goal Type Associated Problems Recent Progress Patient-Stated? Author CCM COPD Care Plan Chronic Care Management Coleen Parrish, MIGUEL Note: Problem: COPD Goals: 1. Avoid [...] as needed Medical Devices Implanted Type Area Interactive Producer Device Identifier Shelf Expiration Date Model / Serial / Lot [facility] Trufill Glue 1gm Nbca [id number] - [id number] Implanted:Qty: 1 on 05/15/2022 at [facility]/[employer] 02/26/2024 [id number] / / [id number] [employer] Angio-Seal Vip 6fr Closere Device [id number] - [id number] Implanted:Qty: 1 on 05/15/2022 at [facility] [employer] 02/25/2023 [id number] / / [id number] Procedures Procedure Name Priority Date/Time Associated Diagnosis Comments CTA ABDOMEN PELVIS W WO CONTRAST Schedule Routine, Read Routine (OP Routine) 06/11/2022 1:10 PM SPORTS STATISTICIAN Aneurysm of visceral artery HEPATITIS C ANTIBODY Routine 05/09/2021 3:08 PM SPORTS STATISTICIAN COLONOSCOPY REPORT 05/31/2013 from Last 3 Months or Most Recently Relevant to Health Maintenance Results * CTA Abdomen Pelvis (06/11/2022 1:10 PM SPORTS STATISTICIAN) Anatomical Region Laterality Modality Body N/A Computed Tomogra phy 06/11/2022 2:20 PM SPORTS STATISTICIAN Impressions 06/11/2022 2:21 PM SPORTS STATISTICIAN 1. Decreased size of a superior pancreaticoduodenal [...] Homa Neal M.D. Narrative 06/11/2022 2:21 PM SPORTS STATISTICIAN EXAMINATION: CTA ABDOMEN PELVIS HISTORY: 62-year-old with [...] * Hepatitis C antibody (05/09/2021 3:08 PM SPORTS STATISTICIAN) Hep C Ab Nonreactive Nonreactive [facility] TOLLIVER Comment:Antibodies to HCV no t detected. Does NOT exclude the possibility of recent exposure to HCV. Blood 05/09/2021 3:08 PM SPORTS STATISTICIAN 05/09/2021 3:38 PM SPORTS STATISTICIAN Pratima Morales MD LAB MICROBIOLOGY - GENERAL ORD ERABLES Edited Result - Final [facility] Department [place] [address] * COLONOSCOPY REPORT (05/31/2013) Anatomical Region Laterality Modality Other Narrative 05/31/2013 Ordered by an unspecified provider. us Historical Provider GI PROCEDURE ORDERABLES F inal Result from Last 3 Months or Most Recently Relevant to Health Maintenance Insurance MEDICARE [facility] MEDICARE IDPA [facility] MEDICARE GENERIC RISK OTHER [facility] [place] [facility] [place] MEDICARE ID[place] Advance Directives For more information, please contact: [phone] * Full Code (Latest Code Status on File) Date Activated Date Inactivated Comments 01/20/2022 6:40 AM 01/25/2022 2:33 PM * Full Code Date Activated Date Inactivated Comments 09/22/2021 4:08 AM 09/24/2021 6:55 PM * Full Code Date Activated Date Inactivated Comments 05/08/2021 5:39 PM 05/10/2021 9:30 PM Care Teams Barrelhead Inspector Relationship Specialty Start Date End Date Consuelo Villareal MD [address] [place] [address] PCP - General 05/07/21 Edelmira Balderas MD [address] [place] [address] Consulting Physician Vascular Surgery 01/25/22
[2024-09-24 11:47] LABS: Anion Gap 5 mmol/L (4-12); Blood Urea Nitrogen 10 mg/dL (9-20); Calcium 9.3 mg/dL (8.4-10.2); Carbon Dioxide 31 mmol/L (22-30); Chloride 103 mmol/L (98-107); Estimated Glomerular Filt Rate > 60; Glucose 94 mg/dL (65-110); Osmolality Calculated 287 mOsm/kg (285-295); Potassium 4.5 mmol/L (3.4-5.0); Sodium 139 mmol/L (137-145)
== END 2024-09-24 11:08 | disposition home or self-care (01) ==
LOC: CHSLAB 11:08
PROVIDERS: PCP Internal Medicine; Visit Provider Internal Medicine
DX: I10 Essential (primary) hypertension (principal)
CPT/HCPCS: 36415; 80048

== ENCOUNTER 2024-12-08 10:08 | Outpatient (CLI) | payer MEDICARE, MEDICAID, SELFPAY ==
--- OUTSIDE RECORDS SUMMARY | 2024-12-08 10:19 | XMS_ITS | Encounter Summary ---
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
--- OUTSIDE RECORDS SUMMARY | 2024-12-08 10:19 | XMS_ITS | Encounter Summary ---
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
--- OUTSIDE RECORDS SUMMARY | 2024-12-08 10:19 | XMS_ITS | Clinical Summary ---
Author Organization [facility] Address [facility] [place] [address] Care Team Providers Care Armature Repairer Name Role Phone New Referring, Provider Primary [...] Comments Blood Pressure 122/79 05/26/2019 12:20 PM DIGITAL ASSOCIATE Pulse 84 05/26/2019 12:20 PM DIGITAL ASSOCIATE Temperature 36.6 C (97.8 F) 05/26/2019 12:20 PM DIGITAL ASSOCIATE Respiratory Rate 18 05/26/2019 12:20 PM DIGITAL ASSOCIATE Oxygen Saturation 98% 05/26/2019 12:20 PM DIGITAL ASSOCIATE Inhaled Oxygen Concentration - - Weight 92.1 kg (203 lb) 05/24/2019 2:21 PM DIGITAL ASSOCIATE Height 174 cm (5' 8.5) 05/24/2019 2:21 PM DIGITAL ASSOCIATE Body Mass Index 30.41 05/24/2019 2:21 PM DIGITAL ASSOCIATE Plan of Treatment Health Maintenance Due Date [...] 12:18 PM 05/26/2019 3:42 PM Care Teams Armature Repairer Relationship Specialty Start Date End Date New Referring, Provider PCP - General UNKNOWN PHYSICIAN SPECIALTY 05/24/19
--- OUTSIDE RECORDS SUMMARY | 2024-12-08 10:19 | XMS_ITS | Encounter Summary ---
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 [address] [place] [address] PCP - General 06/19/19 05/06/21 Consuelo Villareal MD [address] [place], [place] [address] PCP - General 05/07/21 Edelmira Balderas MD [address] [place], [place] [address] Consulting Physician Vascular Surgery 01/25/22 documented as of this encounter
--- OUTSIDE RECORDS SUMMARY | 2024-12-08 10:19 | XMS_ITS | Encounter Summary ---
Author Organization [facility] Address [address] [place] [address] Phone Care Team Providers Care Veterinary Physiologist Name Role Phone Raymond Prescott MD Primary Care Provider Consuelo Villareal MD Primary Care Provider [phone] Edelmira Balderas MD Unavailable [phone] Encounter Details Date Type Department Care Team (Late st Contact Info) Description 04/13/2021 Orders Only [facility] Scanning, Provider Social History Tobacco Use Types Packs/Day Years Used Date Smoking Tobacco: Every Day Cigarettes 0.1 51 Smokeless Tobacco: Never Alcohol Use Standard Drinks/Week Comments Yes 0 (1 standard drink = 0.6 oz pur e alcohol) Sex and Gender Information Value Date Recorded Sex Assigned at Not on file 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
--- OUTSIDE RECORDS SUMMARY | 2024-12-08 10:19 | XMS_ITS | Encounter Summary ---
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
--- OUTSIDE RECORDS SUMMARY | 2024-12-08 10:19 | XMS_ITS | Encounter Summary ---
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
--- OUTSIDE RECORDS SUMMARY | 2024-12-08 10:19 | XMS_ITS | Encounter Summary ---
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
--- OUTSIDE RECORDS SUMMARY | 2024-12-08 10:19 | XMS_ITS | Encounter Summary ---
Author Organization [facility] Address [address] [place] [address] Care Team Providers Care Public Information Relations Manager Name Role Phone New Referring, Provider Primary Care Provider Un available Encounter Details Date Type Department Care Team (Late st Contact Info) Description 10/03/2018 Abstract SFL CONVERSION [address] [place] [address] , Generic Conversion, Social History Tobacco Use [...] on filedocumented in this encounter Care Teams Public Information Relations Manager Relationship Specialty Start Date End Date New Referring, Provider PCP - General UNKNOWN PHYSICIAN SPECIALTY 05/24/19 documented as of this encounter
--- OUTSIDE RECORDS SUMMARY | 2024-12-08 10:19 | XMS_ITS | Encounter Summary ---
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 [address] [place] [address] PCP - General 06/19/19 05/06/21 Consuelo Villareal MD [address] [place], [place] [address] PCP - General 05/07/21 Edelmira Balderas MD [address] [place] [address] Consulting Physician Vascular Surgery 01/25/22 documented as of this encounter
--- OUTSIDE RECORDS SUMMARY | 2024-12-08 10:19 | XMS_ITS | Encounter Summary ---
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
--- OUTSIDE RECORDS SUMMARY | 2024-12-08 10:19 | XMS_ITS | Encounter Summary ---
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
--- OUTSIDE RECORDS SUMMARY | 2024-12-08 10:19 | XMS_ITS | Encounter Summary ---
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
--- OUTSIDE RECORDS SUMMARY | 2024-12-08 10:19 | XMS_ITS | Encounter Summary ---
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
--- OUTSIDE RECORDS SUMMARY | 2024-12-08 10:19 | XMS_ITS | Clinical Summary ---
Author Organization [facility] Address [address] [place] [address] Care Team Providers Care Supervisor Cooler Service Name Role Phone Consuelo Villareal MD Primary Care Provider [phone] Hardik Frye MD Unavailable [phone] Carlo Penaloza MD Unavailable [phone] Source Comments [facility] [employer],non-owned Affiliates and Associated Physician Practices is amultiple site organization consisting of ambulatory clinics and hospital sitesin [place], [place], [place] and [place]. This disclosure is being madepursuant to the Care Everywhere program and may not contain all information available regarding this patient. Last updated 18.[facility] [employer] Allergies No known active allergies Medications * [...] naloxone HCl (Narcan) 4 MG/0.1ML nasal spray Greene 1 (one) spray into the nose as [...] BY MOUTH ONCE DAILY NEEDED FOR CONSTIPATION 946 mL 3 09/28/19 25 026 Active Active Problems Problem Noted Date Diagnosed Date Alcoholic cirrhosis of liver with ascites 2021 Encounters Date Type Department Care Team Description 09/22/2024 Refill [facility] [address] [facility], [place] [id number] Clementine Veras APRN-CNP Refill Request from Last 3 Months Family History Medical History Relation Name Comments Cancer - Pancreatic Brother Relation Name Status Comments Brother Social History Tobacco Use Types Packs/Day Years Used Date Smoking Tobacco: Former Cigarettes 0.3 55 1 966 - 2020 Smokeless Tobacco: Never Tobacco Cessation:Counseling Given: Not [...] Info) Description 01/25/2025 1:45 PM CDT Appointment [facility] [address] [place] [phone] Clementine Veras APRN-CNP [address] [place] [address] [place] [address] 01/25/2025 2:30 PM CDT Office [place] [facility] [place] [address] [place] [phone] Clementine Veras, COURT CLERK-MEMBERSHIP ADMINISTRATOR [address] [place] [address] Health Maintenance Due Date Last Done Comments [...] years 1-dose series) 2019 COVID-19 VACCINE ( - 2023- season) 2023 AAA SCREENING 02/02/2024 DEPRESSION SCREENING 04/28/2024 INFLUENZA VACCINE (#1) 2024 05/08/2021 SCREENING FOR DIABETES 07/27/2027 5, 02/10/2023, 08/08/2022, Additional history exists HIB VACCINE [...] Patient-Stated? Author Medication Management General On track( 025 4:25 PM CDT) No Cynthia Vadlez, RN Note: Expected end date: ongoing Interventions: Take all medications as prescribed Safety General On track( 4:25 PM CDT) Joan Garcia RN Note: Expected end date: ongoing Interventions: [...] appointments General On track( 4:25 PM CDT) Joan Garcia RN Procedures Procedure Name Priority Date/Time Associated Diagnosis Comments COMPREHENSIVE METABOLIC PANEL Routine 07/26/2024 2:16 PM CDT Alcoholic cirrhosis of liver without ascites from Last 3 Months or Most Recently Relevant to Health Maintenance Results * (ABNORMAL) COMPREHENSIVE METABOLIC PANEL (07/26/2024 2:16 PM CDT) BUN 9 7 - 26 mg/dL 07/26/2024 2:46 PM [facility] Creatinine 1.12 0.71 - 1.16 mg/dL 07/26/2024 2:46 PM [facility] Sodium 139 136 - 145 mmol/L 07/26/2024 2:46 PM [facility] Potassium 4.3 3.5 - 4.5 mmol/L 07/26/2024 2:46 PM [facility] Chloride 105 98 - 107 mmol/L 07/26/2024 2:46 PM [facility] CO2 28 22 - 29 mmol/L 07/26/2024 2:46 PM [facility] Glucose 94 70 - 99 mg/dL 07/26/2024 2:46 PM [facility] Calcium 9.8 8.4 - 10.2 mg/dL 07/26/2024 2:46 PM [facility] Protein Total 7.9 6.0 - 8.3 g/dL 07/26/2024 2:46 PM [facility] Albumin 4.1 3.4 - 5.0 g/dL 07/26/2024 2:46 PM [facility] Bilirubin Total 0.5 0.2 - 1.2 mg/dL 07/26/2024 2:46 PM [facility] Alkaline Phosphatase 88 40 - 150 U/L 07/26/2024 2:46 PM [facility] ALT 10 5 - 55 U/L 07/26/2024 2:46 PM [facility] AST 18 5 - 34 U/L 07/26/2024 2:46 PM [facility] Anion Gap 6 6 - 16 07/26/2024 2:46 PM [facility] BUN/Creatinine Ratio 8 7 - 23 07/26/2024 2:46 PM [facility] Osmolality Calculated 286 275 - 295 mOsm/kg 07/26/2024 2:46 PM [facility] Albumin/Globulin Ratio 1.1 1.1 - 2.3 07/26/2024 2:46 PM [facility] eGFR by CKD-EPI 73(L) >=90 mL/min/1.7 3 m2 07/26/2024 2:46 PM [facility] Blood BLOOD SPECIMEN / Unknown Lab Venipuncture / Unknown 07/26/2024 2:16 PM CDT 07/26/2024 2:21 PM [address]T Clementine Veras COURT CLERK-MEMBERSHIP ADMINISTRATOR LAB - CHEMISTRY ORD ERABLES Final Result [facility] [address] [place] [address], [facility] [phone] from Last 3 Months or Most Recently Relevant to Health Maintenance Insurance MEDICARE [facility] MEDICARE [facility] Care Teams Supervisor Cooler Service Relationship Specialty Start Date End Date Consuelo Villareal MD [address] [place] [address] PCP - General Internal Medicine 10/02/21 Hardik Frye MD [address] [place] [address] Gastroenterology 10/09/21 Carlo Penaloza MD [address] [facility] [phone] [place] [address] General Surgery 01/31/22
--- OUTSIDE RECORDS SUMMARY | 2024-12-08 10:19 | XMS_ITS | Encounter Summary ---
Author Organization 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
--- OUTSIDE RECORDS SUMMARY | 2024-12-08 10:19 | XMS_ITS | Clinical Summary ---
Author Organization [facility] Address [address] [place] [address] Care Team Providers Care Hoop Coiling Machine Operator Name Role Phone Consuelo Villareal MD Primary Care Provider Edelmira Balderas MD Unavailable [phone] Allergies No known active allergies Medications aspirin [...] 4 WEEKS 1 mL 2 5 Active OxyCONTIN 15 mg 12 hr abuse-deterrent tablet Take 1 tablet (15 mg total) by mouth every 12 (twelve) hours 5 Active thiamine (vitamin B-1) 100 mg tablet Take 1 tablet (100 mg total) by mouth daily Active potassium chloride ER 20 mEq CR tablet Take 1 tablet (20 mEq total) by mouth 5 Active UNABLE TO FIND Take by mouth daily Floradix - iron supplement Active Active Problems Problem Noted Date Diagnosed [...] (09/21/2021): Added automatically from request for surgery [id number] Assessment & Plan (09/24/2021 10:42 AM CDT): Presented to ED with incarcerated umbilical hernia; patient noted hernia presence for ~3-5 yrs; no h/o incarceration Booked for OR for repair; after induction, hernia was able to be reduced. NO repair NGT to [facility], patel, NPO, IVF, pain management 09/22: Hernia [...] Plan: Discharge home today. Follow up in [facility] attending clinic to discuss elective hernia [...] Flexeril for pain Chronic obstructive pulmonary disease ([facility]) 03/01/2015 Assessment & Plan (01/23/2022 10:57 AM CDT): -Home trelegy ellipata and proair prn. 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 to D2/LAD (Added by TW Conv) Asthma [...] you are drinking? Patient does not drink 01/16/202 3 Frequency of Binge Drinking Not on file 04/28 Personal Safety Answer Date Recorded Getting School Help Needed Denies 04/14 Sex and Gender Information Value Date Recorded Sex Assigned at Not on file Legal Sex Male 1:47 AM [place] Gender Identity Not on file Sexual Orientation Not on file Obstetrics History Last Filed Vital Signs Vital Sign Reading Time Taken Comments Blood Pressure 120/79 12/06/2024 9:24 AM CDT Pulse 63 12/06/2024 9:24 AM CDT Temperature 36.2 C (97.2 F) 12/06/2024 9:24 AM CDT Respiratory Rate 16 05/15/2022 5:00 PM [place] Oxygen Saturation 97% 12/06/2024 9:24 AM CDT Inhaled Oxygen Concentration - - Weight 89.4 kg (197 lb) 12/06/2024 9:24 AM CDT Height 172.7 cm (5' 8) 12/06/2024 9:24 AM CDT Body Mass Index 29.95 12/06/2024 9:24 AM CDT Plan of Treatment Health Maintenance Due Date Last Done Comments Depression Screening 1960 Prostate Cancer Screening-PSA 1959 DTaP/Tdap/Td Vaccine (1 - Tdap) 1970 Hepatitis B Screening 1977 Lung Cancer Screening 2009 Zoster Vaccine (1 of 2) 2009 Covid-19 Vaccine (3 - Pfizer risk series) 12/13/2020 11/15/2020, 10/25/2020 Pneumococcal vaccine 65+ (3 of 3 - PCV20 or PCV21) 03/19/2021 03/19/2016, 02/16/2008 Fall Risk Assessment 05/13/2023 05/13/2022 Colon Cancer Screening-Colonoscopy 05/31/2023 05/31/2013 Abdominal Aortic Aneurysm (A AA) Screen 02/02/2024 06/11/2022, 04/12/2022, 01/21/2022, Additional history exists Well Visit 65+ 02/02/2024 Influenza Vaccine (#1) 2024 2, 05/08/2021, 01/28/2020, Additional history exists Colon Cancer [...] as needed Medical Devices Implanted Type Area Obgyn Hospitalist Physician Device Identifier Shelf Expiration Date Model / Serial / Lot [employer] Trufill Glue 1gm Nbca [id number] - [id number] Implanted:Qty: 1 on 05/15/2022 at [facility] [employer] 02/26/2024 [id number] / / [id number] [email or web address] Angio-Seal Vip 6fr Closere Device [id number] - [id number] Implanted:Qty: 1 on 05/15/2022 at [facility] [email or web address] 02/25/2023 [id number] / / [id number] Procedures Procedure Name Priority Date/Time Associated Diagnosis Comments CTA ABDOMEN PELVIS W WO CONTRAST Schedule Routine, Read Routine (OP Routine) 06/11/2022 1:10 PM [place] Aneurysm of visceral artery HEPATITIS C ANTIBODY Routine 05/09/2021 3:08 PM [place] COLONOSCOPY REPORT 05/31/2013 from Last 3 Months or Most Recently Relevant to Health Maintenance Results * CTA Abdomen Pelvis (06/11/2022 1:10 PM [place]) Anatomical Region Laterality Modality Body N/A Computed Tomogra phy 06/11/2022 2:20 PM [place] Impressions 06/11/2022 2:21 PM [place] 1. Decreased size of a superior pancreaticoduodenal [...] Homa Neal M.D. Narrative 06/11/2022 2:21 PM [place] EXAMINATION: CTA ABDOMEN PELVIS HISTORY: 62-year-old with [...] * Hepatitis C antibody (05/09/2021 3:08 PM [place]) Hep C Ab Nonreactive Nonreactive HAILEY TOLLIVER Comment:Antibodies to HCV no t detected. Does NOT exclude the possibility of recent exposure to HCV. Blood 05/09/2021 3:08 PM [place] 05/09/2021 3:38 PM [place] Pratima Morales MD LAB MICROBIOLOGY - GENERAL ORD ERABLES Edited Result - Final [facility]UV[facility]L [facility] Department [place] [address] * COLONOSCOPY REPORT (05/31/2013) Anatomical Region Laterality Modality Other Narrative 05/31/2013 Ordered by an unspecified provider. Historical Provider GI PROCEDURE ORDERABLES F inal Result from Last 3 Months or Most Recently Relevant to Health Maintenance Insurance MEDICARE [facility] MEDICARE [place] MANAGED MEDICARE GENERIC RISK OTHER [facility] [place] [facility] MEDICARE [facility] Advance Directives For more information, please contact: [phone] * Full Code (Latest Code Status on File) Date Activated Date Inactivated Comments 01/20/2022 6:40 AM 01/25/2022 2:33 PM * Full Code Date Activated Date Inactivated Comments 09/22/2021 4:08 AM 09/24/2021 6:55 PM * Full Code Date Activated Date Inactivated Comments 05/08/2021 5:39 PM 05/10/2021 9:30 PM Care Teams Hoop Coiling Machine Operator Relationship Specialty Start Date End Date Consuelo Villareal MD [address] [place] [address] PCP - General 05/07/21 Edelmira Balderas MD [address] [place] [address] Consulting Physician Vascular Surgery 01/25/22
[2024-12-08 10:27] LABS: Hematocrit 42.5 % (37.0-46.0); Hemoglobin 13.6 g/dL (12.4-15.3); Immature Granulocyte Percent A 0.4 % (0.0-0.0); Lymphocytes Absolute Auto 1.71 K/mm3 (1.10-4.50); Mean Corpuscular HGB Conc 32.0 g/dL (32-36); Mean Corpuscular Hemoglobin 30.6 pg (27.0-31.0); Mean Corpuscular Volume 95.5 fL (78.0-102.0); Nucleated Red Blood Cells Absolute Auto 0.00 K/mm3 (0.00-0.00); Nucleated Red Blood Cells Perc 0.0 % (0-0.0); Platelet Count Result 183 K/mm3 (150-420); Red Blood Count 4.45 M/mm3 (4.70-6.10); White Blood Count 8.2 K/mm3 (4.8-10.8)
[2024-12-08 10:41] LABS: Add Urine Microscopic? NO; Appearance Urine Clear (Clear); Glucose Urine UA Negative (Negative); Leukocyte Esterase Ur Negative (Negative); Nitrate Urine Negative (Negative); Specific Grav Ur <= 1.005 (1.010-1.020)
[2024-12-08 10:52] LABS: Hemoglobin A1C 5.8 % (<5.7)
[2024-12-08 11:04] LABS: Alanine Aminotransferase 10 U/L (6-50); Albumin Level 4.3 g/dL (3.5-5.1); Alkaline Phosphatase 84 U/L (38-126); Anion Gap 4 mmol/L (4-12); Aspartate Amino Transferase 23 U/L (17-59); Bilirubin,Total 0.6 mg/dL (0.2-1.3); Blood Urea Nitrogen 18 mg/dL (9-20); Calcium 9.6 mg/dL (8.4-10.2); Carbon Dioxide 32 mmol/L (22-30); Chloride 105 mmol/L (98-107); Cholesterol 183 mg/dL (0-200); Creatine Kinase 83 U/L (55-170); Estimated Glomerular Filt Rate > 60; Glucose 106 mg/dL (65-110); HDL Direct 36 mg/dL; Iron 76 ug/dL (49-181); Osmolality Calculated 293 mOsm/kg (285-295); Potassium 4.8 mmol/L (3.4-5.0); Sodium 141 mmol/L (137-145); Total Protein 7.3 g/dL (6.3-8.2); Triglycerides 113 mg/dL (<150)
[2024-12-08 11:20] LABS: Free T4 Free Thyroxine 1.51 ng/dL (0.78-2.19)
[2024-12-08 11:34] LABS: Thyroid Stimulating Hormone 1.670 uIU/mL (0.465-4.680)
[2024-12-08 11:38] LABS: Ferritin 33.40 ng/mL (11.1-264)
[2024-12-08 11:53] LABS: Vitamin B12 379.0 pg/mL (239-931)
[2024-12-08 12:35] LABS: Free T3 3.41 pg/mL (2.18-3.98)
== END 2024-12-08 10:09 | disposition home or self-care (01) ==
PROVIDERS: PCP Internal Medicine; Visit Provider Internal Medicine
DX: K70.30 Alcoholic cirrhosis of liver without ascites (principal); D64.9 Anemia, unspecified; I10 Essential (primary) hypertension; E79.0 Hyperuricemia without signs of inflammatory arthritis and tophaceous disease; E78.2 Mixed hyperlipidemia; G62.9 Polyneuropathy, unspecified; R73.01 Impaired fasting glucose
CPT/HCPCS: 36415; 80053; 80061; 81003; 82550; 82607; 82728; 83036; 83540; 84439; 84443; 84481; 85025

== ENCOUNTER 2025-03-10 15:51 | Outpatient (CLI) | payer MEDICARE, MEDICAID, SELFPAY ==
--- NOTE | ~2025-03-10 | CT_ITS ---
CT lung screening INDICATION: Tobacco use. Screening COMPARISON: 03/29/2024. TECHNIQUE: CT examination of the entire thorax without contrast was performed using low dose technique. Thin section axial, sagittal and coronal images were included to increase sensitivity for small lung nodules. FINDINGS: PULMONARY NODULES: Stable 5 mm pulmonary nodule within the right lung apex. No new pulmonary nodule. Calcified nodule in the left is stable. OTHER PULMONARY FINDINGS: No significant nonnodular pleural or parenchymal abnormality is noted. Mild bronchiectasis is noted. No pathologically enlarged lymph nodes are present. Normal heart size. 2-D limit of this nongated CT there is moderate coronary artery calcification. UPPER ABDOMEN AND PERIPHERAL SOFT TISSUE: Cholelithiasis is noted. OSSEOUS STRUCTURES: Bone window shows no aggressive blastic or lytic lesions. IMPRESSION: 1. Lung-RADS category 2: Nodules with a very low likelihood of becoming a clinically active cancer due to size or lack of growth. Recommendations: 1 or 2: Annual screening with low-dose CT in 12 months. 2. Mild emphysematous changes are present. All CT scans at this facility are performed using low dose modulation techniques as appropriate to perform exam including the following: automated exposure control; use of iterative reconstruction technique; adjustment of the mA and/or kV according to patient size (this includes techniques or standardized protocols for targeted exams where dose is matched to indication/reason for exam). Reviewed, dictated and finalized at location S[facility] IMPRESSION: 1. Lung-RADS category 2: Nodules with a very low likelihood of becoming a clini jordy active cancer due to size or lack of growth. Recommendations: 1 or 2: Annual screening with low-dose CT in 12 months. 2. Mild emphysematous changes are present. All CT scans at this facility are performed using low dose modulation techniqu es as appropriate to perform exam including the following: automated exposure c ontrol; use of iterative reconstruction technique; adjustment of the mA and/or kV according to patient size (this includes techniques or standardized protocol s for targeted exams where dose is matched to indication/reason for exam).
--- OUTSIDE RECORDS SUMMARY | 2025-03-10 15:55 | XMS_ITS | Encounter Summary ---
Author Organization [facility] Address [address] [place] [address] Phone Care Team Providers Care Campus Receptionist Name Role Phone Raymond Prescott MD Primary Care Provider Consuelo Villareal MD Primary Care Provider Edelmira Balderas MD Unavailable Encounter Details Date Type Department Care Team (Late st Contact Info) Description 04/13/2021 Orders Only [facility] Scanning, Provider Social History Tobacco Use Types Packs/Day Years Used Date Smoking Tobacco: Every Day Cigarettes 0.1 51 Smokeless Tobacco: Never Alcohol Use Standard Drinks/Week Comments Yes 0 (1 standard drink = 0.6 oz pur e alcohol) Sex and Gender Information Value Date Recorded Sex Assigned at Not on file 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
--- OUTSIDE RECORDS SUMMARY | 2025-03-10 15:55 | XMS_ITS | Encounter Summary ---
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
--- OUTSIDE RECORDS SUMMARY | 2025-03-10 15:55 | XMS_ITS | Encounter Summary ---
Author Organization [facility] Address [address] [place] [address] Phone Care Team Providers Care Assistance Representative Name Role Phone Johnie Ernandez MD Primary Care Provide r Raymond Prescott MD Primary Care Provider Consuelo Villareal MD Primary Care Provider Edelmira Balderas MD Unavailable [phone] Encounter Details Date Type Department Care Team (Late st Contact Info) Description 11/27/2018 Orders Only [facility] Scanning, Provider Social History Tobacco Use Types Packs/Day Years Used Date Smoking Tobacco: Every Day Cigarettes 0.1 51 Smokeless Tobacco: Never Alcohol Use Standard Drinks/Week Comments Yes 0 (1 standard drink = 0.6 oz pur e alcohol) Sex and Gender Information Value Date Recorded Sex Assigned at Not on file 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
--- OUTSIDE RECORDS SUMMARY | 2025-03-10 15:55 | XMS_ITS | Encounter Summary ---
Author Organization [facility] Address [address] [place] [address] Phone Care Team Providers Care Grade Recorder Name Role Phone Johnie Ernandez MD Primary Care Provide r Raymond Prescott MD Primary Care Provider Consuelo Villareal MD Primary Care Provider Edelmira Balderas MD Unavailable Encounter Details Date Type Department Care Team (Late st Contact Info) Description 01/11/2019 Orders Only [facility] Scanning, Provider Social History Tobacco Use Types Packs/Day Years Used Date Smoking Tobacco: Every Day Cigarettes 0.1 51 Smokeless Tobacco: Never Alcohol Use Standard Drinks/Week Comments Yes 0 (1 standard drink = 0.6 oz pur e alcohol) Sex and Gender Information Value Date Recorded Sex Assigned at Not on file 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
--- OUTSIDE RECORDS SUMMARY | 2025-03-10 15:55 | XMS_ITS | Encounter Summary ---
Author Organization [facility] Address [address] [place] [address] Phone Care Team Providers Care Field Sales Executive Name Role Phone Raymond Prescott MD Primary Care Provider Consuelo Villareal MD Primary Care Provider Edelmira Balderas MD Unavailable Encounter Details Date Type Department Care Team (Late st Contact Info) Description 04/17/2021 Orders Only [facility] Scanning, Provider Social History Tobacco Use Types Packs/Day Years Used Date Smoking Tobacco: Every Day Cigarettes 0.1 51 Smokeless Tobacco: Never Alcohol Use Standard Drinks/Week Comments Yes 0 (1 standard drink = 0.6 oz pur e alcohol) Sex and Gender Information Value Date Recorded Sex Assigned at Not on file 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 [address] [place] [address] PCP - General 06/19/19 05/06/21 Consuelo Villareal MD [address] [place], [place] [id number] PCP - General 05/07/21 Edelmira Balderas MD [address] [place] [address] Consulting Physician Vascular Surgery 01/25/22 documented as of this encounter
--- OUTSIDE RECORDS SUMMARY | 2025-03-10 15:55 | XMS_ITS | Encounter Summary ---
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
--- OUTSIDE RECORDS SUMMARY | 2025-03-10 15:55 | XMS_ITS | Encounter Summary ---
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
--- OUTSIDE RECORDS SUMMARY | 2025-03-10 15:55 | XMS_ITS | Encounter Summary ---
Author Organization [facility] Address [address] [place] [address] Phone Care Team Providers Care Stitch Bonding Machine Drawer In Name Role Phone Raymond Prescott MD Primary Care Provider Consuelo Villareal MD Primary Care Provider [phone] Edelmira Balderas MD Unavailable Encounter Details Date Type Department Care Team (Late st Contact Info) Description 11/14/2020 Orders Only [facility] Scanning, Provider Social History Tobacco Use Types Packs/Day Years Used Date Smoking Tobacco: Every Day Cigarettes 0.1 51 Smokeless Tobacco: Never Alcohol Use Standard Drinks/Week Comments Yes 0 (1 standard drink = 0.6 oz pur e alcohol) Sex and Gender Information Value Date Recorded Sex Assigned at Not on file 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
--- OUTSIDE RECORDS SUMMARY | 2025-03-10 15:55 | XMS_ITS | Encounter Summary ---
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
--- OUTSIDE RECORDS SUMMARY | 2025-03-10 15:55 | XMS_ITS | Clinical Summary ---
Author Organization [facility] Address [address] [place] [address] Care Team Providers Care Trade Sales Assistant Name Role Phone Consuelo Villareal MD Primary Care Provider [phone] Hardik Frye MD Unavailable [phone] Carlo Penaloza MD Unavailable [phone] Source Comments [facility],non-owned Affiliates and Associated Physician Practices is amultiple site organization consisting of ambulatory clinics and hospital sitesin [place], [place], [place] and [place]. This disclosure is being madepursuant to the Care Everywhere program and may not contain all information available regarding this patient. Last updated 18.[facility] Allergies Active Allergy Reactions Criticality Noted Date Comments Bee Venom Anaphylaxis High 05/10/2024 Medications * Be aware that medications may [...] naloxone HCl (Narcan) 4 MG/0.1ML nasal spray [place] 1 (one) spray into the nose as [...] 2 times daily as needed for Constipation 946 mL 3 01/26/20 25 026 Active Active Problems Problem Noted Date Diagnosed Date Alcoholic cirrhosis of liver with ascites 2021 Encounters Date Type Department Care Team Description 01/28/2025 Results Follow-Up [facility] - [facility] [place] [address] Clementine Veras APRN-CNP 01/25/2025 2:47 PM CDT - 01/25/2025 11:59 PM CDT Hospital Encounter [facility] [address] [place] [address] Clementine Veras APRN-CNP Discharge Disposition: Home or Self Care 01/25/2025 2:30 PM CDT Office Visit [facility] - [facility] [place] [address] Brandon Mejia MD Swanson, Stephanie N, APRN-CNP Hepatic encephalopathy (HCC) (Primary Dx); Alcoholic cirrhosis of liver without ascites (HCC) 01/25/2025 1:22 PM CDT - 01/25/2025 2:46 PM CDT Hospital Encounter [facility] [address] [place] [address] Clementine Veras APRN-CNP Discharge Disposition: Home or Self Care 01/25/2025 Travel from Last 3 Months Family History [...] Sign Reading Time Taken Comments Blood Pressure 136/77 01/25/2025 2:52 PM CDT Pulse 63 01/25/2025 2:52 PM CDT Temperature 36.7 C (98 F) 01/25/2025 2:52 PM CDT Respiratory Rate 18 02/10/2023 1:57 PM CDT Oxygen Saturation 96% 01/25/2025 2:52 PM CDT Inhaled Oxygen Concentration - - Weight 88 kg (194 lb) 01/25/2025 2:52 PM CDT Height 175.3 cm (5' 9) 01/25/2025 2:52 PM CDT Body Mass Index 28.65 01/25/2025 2:52 PM CDT Plan of Treatment Upcoming Encounters Date Type Department Care Team (Late st Contact Info) Description 07/25/2025 2:00 PM CDT Appointment [facility] [address] [place] [id number] Clementine Veras, NUT ROASTER HELPER-INJECTION PRESS OPERATOR [address] [place] [address] [address] [place] [address] 07/25/2025 3:00 PM CDT Office Visit [facility] - GI [address] [facility], [place] [address] Clementine Veras, NUT ROASTER HELPER-INJECTION PRESS OPERATOR [address] [facility] [address] [place] [address] Health Maintenance Due Date Last Done Comments COLOGUARD (AGES 45-75) - COLON CA SCREENING 1959 COLON MONITORING 1959 COLONOSCOPY - COLON CA SCREENING 1959 CT COLONOGRAPHY - COLON CA SCREENING 1959 Colorectal Cancer Screening 1959 FIT - COLON CA SCREENING 1959 FLEX SIG - COLON CA SCREENING 1959 LIPID TESTING 1959 MEDICARE AWV 12 MONTHS 1959 HEPATITIS C SCREENING 01/27/1977 DTAP/TDAP/TD VACCINES (1 - Tdap) 1978 PNEUMOCOCCAL VACCINE 50+ (1 of 2 - PCV) 1978 ZOSTER VACCINE (1 of 2) 2009 HEPATITIS B VACCINE (1 of 3 - Risk 3-dose series) 2019 Respiratory Syncytial Virus (RSV) Vaccine Pt: or over 60 yrs (1 - Risk 60-74 years 1-dose series) 2019 AAA SCREENING 02/02/2024 DEPRESSION SCREENING 04/28/2024 COVID-19 VACCINE ( season) 2024 INFLUENZA VACCINE (#1) 2024 02/15/2022, 2021 SCREENING FOR DIABETES 01/26/2028 , 07/26/2024, 02/10/2023, Additional history exists HIB VACCINE Aged Out [...] Author Medication Management General On track( 025 2:47 PM CDT) No Cynthia Valdez, RN Note: Expected end date: ongoing Interventions: Take all medications as prescribed Safety General On track( 025 2:47 PM CDT) No Joan Cr, RN Note: [...] Maintain an unobstructed path to the bathroom Procedures Procedure Name Priority Date/Time Associated Diagnosis Comments PT-INR Routine 01/25/2025 3:45 PM CDT Alcoholic cirrhosis of liver without ascites (HCC) ALPHA FETOPROTEIN BLOOD TUMOR MARKER Routine 01/25/2025 3:45 PM CDT Alcoholic cirrhosis of liver without ascites (HCC) COMPREHENSIVE METABOLIC PANEL Routine 01/25/2025 3:45 PM CDT Alcoholic cirrhosis of liver without ascites (HCC) CBC W AUTO DIFFERENTIAL Routine 01/25/2025 3:45 PM CDT Alcoholic cirrhosis of liver without ascites (HCC) US ABDOMEN LIMITED Routine 01/25/2025 2: 00 PM CDT Alcoholic cirrhosis of liver without ascites (HCC) from Last 3 Months Results * ALPHA FETOPROTEIN BLOOD TUMOR MARKER (01/25/2025 3:45 PM CDT) Pathologist [facility] Alpha-Fetoprote in Tumor Marker 2.3 <=8.3 ng/mL 01/25/2025 5:32 PM CDT [facility] Comment: AFP values will vary depending on testing procedure used. Results are not comparable across different methods. AFP values obtained by [facility] using an Blevins Alinity Immunoassay. Blood BLOOD SPECIMEN / Unknown Lab Venipuncture / Unknown 01/25/2025 3:45 PM CDT 01/25/2025 4:43 PM CDT Clementine Veras NUT ROASTER HELPER-INJECTION PRESS OPERATOR LAB - CHEMISTRY ORD ERABLES Final Result [address] [address], [facility] [phone] * (ABNORMAL) PT-INR (01/25/2025 3:45 PM CDT) Pathologist [facility] PT 15.4(H) 12.1 - 14.8 Seconds 01/25/2025 5:08 PM CDT [facility] INR 1.2 See Comment 01/25/2025 5:08 PM CDT [facility] Comment:The suggested therap eutic range for standard coumadin (warfarin) therapy is an INR of 2.0-3.0. For high-risk patients (Mechanical Mitral Valve Prosthesis, etc.), the suggested prophylactic therapeutic range is an INR of 2.5-3.5. Blood BLOOD SPECIMEN / Unknown Lab Venipuncture / Unknown 01/25/2025 3:45 PM CDT 01/25/2025 4:43 PM CDT us Clementine Anurag Veras NUT ROASTER HELPER-INJECTION PRESS OPERATOR LAB - COAGULATION O RDERABLES Final Result [facility] [address] [place] [address], [facility] [phone] * CBC WITH DIFFERENTIAL (01/25/2025 3:45 PM CDT) WBC 8.1 4.0 - 10.7 x10E9/L 01/25/2025 4:49 PM CDT [facility] RBC Count 4.86 4.30 - 5.80 x10E12/L 01/25/2025 4:49 PM T [facility] Hemoglobin 14.9 13.3 - 17.5 g/dL 01/25/2025 4:49 PM T [facility] Hematocrit 45.4 38.7 - 51.1 % 01/25/2025 4:49 PM [facility] MCV 93.4 80.0 - 98.0 fL 01/25/2025 4:49 PM CDT [facility] MCH 30.7 26.7 - 33.6 pg 01/25/2025 4:49 PM T [facility] MCHC 32.8 31.7 - 36.3 g/dL 01/25/2025 4:49 PM T [facility] RDW-CV 13.8 11.3 - 14.8 % 01/25/2025 4:49 PM [facility] Platelet Count 191 150 - 420 x10E9/L 01/25/2025 4:49 PM T [facility] MPV 10.0 7.8 - 11.4 fL 01/25/2025 4:49 PM T [facility] Neutrophil % 60.2 41.0 - 74.0 % 01/25/2025 4:49 PM T [facility] Lymphocyte % 25.3 17.0 - 47.0 % 01/25/2025 4:49 PM T [facility] Monocyte % 10.5 3.0 - 11.0 % 01/25/2025 4:49 PM T [facility] Eosinophil % 3.3 0.0 - 7.0 % 01/25/2025 4:49 PM CDT [facility] Basophil % 0.5 0.0 - 1.6 % 01/25/2025 4:49 PM CDT [facility] Immature Granulocytes % 0.2 0.0 - 1.0 % 01/25/2025 4:49 PM CDT [facility] Neutrophil Absolute 4.87 1.60 - 7.50 x10E9/L 01/25/2025 4:49 PM CDT [facility] Lymphocyte Absolute 2.05 1.00 - 4.40 x10E9/L 01/25/2025 4:49 PM T [facility] Monocyte Absolute 0.85 0.15 - 1.00 x10E9/L 01/25/2025 4:49 PM CDT [facility] Eosinophil Absolute 0.27 0.00 - 0.60 x10E9/L 01/25/2025 4:49 PM T [facility] Basophil Absolute 0.04 0.00 - 0.13 x10E9/L 01/25/2025 4:49 PM [facility] Blood BLOOD SPECIMEN / Unknown Lab Venipuncture / Unknown 01/25/2025 3:45 PM CDT 01/25/2025 4:43 PM CDT us Clementine Veras NUT ROASTER HELPER-INJECTION PRESS OPERATOR LAB - HEMATOLOGY OR DERABLES Final Result Performing Organization Address City/State/[facility] Co de Phone Number [facility] [address] [place] [address], [facility] [phone] * (ABNORMAL) COMPREHENSIVE METABOLIC PANEL (01/25/2025 3:45 PM CDT) BUN 10 7 - 26 mg/dL 01/25/2025 5:13 PM CDT [facility] Creatinine 1.12 0.71 - 1.16 mg/dL 01/25/2025 5:13 PM CDT [facility] Sodium 138 136 - 145 mmol/L 01/25/2025 5:13 PM CDT [facility] Potassium 4.2 3.5 - 4.5 mmol/L 01/25/2025 5:13 PM [facility] Chloride 103 98 - 107 mmol/L 01/25/2025 5:13 PM [facility] CO2 26 22 - 29 mmol/L 01/25/2025 5:13 PM [facility] Glucose 74 70 - 99 mg/dL 01/25/2025 5:13 PM [facility] Calcium 9.3 8.4 - 10.2 mg/dL 01/25/2025 5:13 PM [facility] Protein Total 7.8 6.0 - 8.3 g/dL 01/25/2025 5:13 PM [facility] Albumin 4.4 3.4 - 5.0 g/dL 01/25/2025 5:13 PM [facility] Bilirubin Total 0.7 0.2 - 1.2 mg/dL 01/25/2025 5:13 PM [facility] Alkaline Phosphatase 89 40 - 150 U/L 01/25/2025 5:13 PM [facility] ALT 7 5 - 55 U/L 01/25/2025 5:13 PM [facility] AST 17 5 - 34 U/L 01/25/2025 5:13 PM [facility] Anion Gap 9 6 - 16 01/25/2025 5:13 PM [facility] BUN/Creatinine Ratio 9 7 - 23 01/25/2025 5:13 PM [facility] Osmolality Calculated 284 275 - 295 mOsm/kg 01/25/2025 5:13 PM [facility] Albumin/Globulin Ratio 1.3 1.1 - 2.3 01/25/2025 5:13 PM [facility] eGFR by CKD-EPI 73(L) >=90 mL/min/1.7 3 m2 01/25/2025 5:13 PM [facility] Comment:Estimated Glomerular Filtration Rate (eGFR) calculated using the CKD-EPI Creatinine Equation (2020), per the National Kidney Foundation and [place] Society of Nephrology recommendations. Blood BLOOD SPECIMEN / Unknown Lab Venipuncture / Unknown 01/25/2025 3:45 PM CDT 01/25/2025 4:43 PM CDT us Clementine Veras NUT ROASTER HELPER-INJECTION PRESS OPERATOR LAB - CHEMISTRY ORD ERABLES Final Result [place] [address] [place] [address], [facility] [phone] * US Abdomen Limited (01/25/2025 2:00 PM CDT) Anatomical Region Laterality Modality Abdomen Ultrasound 01/25/2025 2:00 PM CDT Impressions 01/25/2025 2:20 PM CDT IMPRESSION: Liver Visualization Score B: Moderate limitations. US-1 Negative. Repeat surveillance US in 6 months. Cirrhotic liver morphology without discrete mass noted. No ascites. Otherwise unimpressive limited abdominal ultrasonography. > Dictated by Eddie Velazquez M.D. residential sales > Dictated by Multimedia Instructional Designer I, Estefani Rosenthal MD have personally reviewed and interpreted this examination/study. > Interpreting Provider: Estefani Rosenthal MD on 01/25/2025 2:20 PM Narrative 01/25/2025 2:20 PM CDT PROCEDURE: US ABDOMEN LIMITED, DATE/TIME OF EXAM: 01/25/2025 2:00 PM, LOCATION INDICATION: K70.30: Alcoholic cirrhosis of liver without ascites (HCC) ADDITIONAL CLINICAL INFORMATION: Ordering Provider Reason For Exam: HCC screening Technologist Note: Additional: COMPARISON: Ultrasound abdomen limited 07/26/2024 FINDINGS: Liver Visualization Score: Moderate limitations in liver visualization Liver Morphology: The liver has a coarse echotexture and nodular surface. Liver Observations: No discrete mass is noted. Main Portal Vein: Color Doppler evaluation demonstrates patency of the main portal vein with hepatopedal flow. Hepatic Veins: Color Doppler evaluation demonstrates patency of the hepatic veins with hepatofugal flow. Bile Ducts: The common bile duct is nondilated, measuring 4 mm. No intrahepatic or extrahepatic biliary dilation. Gallbladder: No gallstones or pericholecystic fluid is seen.. Sonographic Plasencia's sign is negative. Ascites: No ascites is present. Spleen: The spleen measures 9.5 cm in length. Pancreas: The visible pancreas is normal in echogenicity. Right Kidney: The right kidney measures 9.2 cm in length. Limited views of the right kidney reveal no evidence of nephrolithiasis or hydronephrosis. No discrete mass identified. Procedure Note Estefani Rosenthal MD - 01/25/2025 PROCEDURE: US ABDOMEN LIMITED, DATE/TIME OF EXAM: 01/25/2025 2:00 PM, LOCATION INDICATION: K70.30: Alcoholic cirrhosis of liver without ascites (HCC) ADDITIONAL CLINICAL INFORMATION: Ordering Provider Reason For Exam: HCC screening Technologist Note: Additional: COMPARISON: Ultrasound abdomen limited 07/26/2024 FINDINGS: Liver Visualization Score: Moderate limitations in liver visualization Liver Morphology: The liver has a coarse echotexture and nodular surface. Liver Observations: No discrete mass is noted. Main Portal Vein: Color Doppler evaluation demonstrates patency of the main portal veinwith hepatopedal flow. Hepatic Veins: Color Doppler evaluation demonstrates patency of the hepatic veins with hepatofugal flow. Bile Ducts: The common bile duct is nondilated, measuring 4 mm. No intrahepatic or extrahepatic biliary dilation. Gallbladder: No gallstones or pericholecystic fluid is seen.. Sonographic Plasencia'ssign is negative. Ascites: No ascites is present. Spleen: The spleen measures 9.5 cm in length. Pancreas: The visible pancreas is normal in echogenicity. Right Kidney: The right kidney measures 9.2 cm in length. Limited views of the right kidney reveal no evidence of nephrolithiasis or hydronephrosis. No discrete mass identified. IMPRESSION: Liver Visualization Score B: Moderate limitations. US-1 Negative. Repeat surveillance US in 6 months. Cirrhotic liver morphology without discrete mass noted. No ascites. Otherwise unimpressive limited abdominal ultrasonography. > Dictated by Eddie Velazquez M.D. residential sales > Dictated by Multimedia Instructional Designer I, Estefani Rosenthal MD have personally reviewed and interpreted this examination/study. > Interpreting Provider: Estefani Rosenthal MD on 01/25/2025 2:20 PM us Clementine Veras NUT ROASTER HELPER-INJECTION PRESS OPERATOR US ORDERABLES Fin al Result from Last 3 [place] [address] [employer] [place] MED[place] [address] Care Teams Trade Sales Assistant Relationship Specialty Start Date End Date Consuelo Villareal MD [address] [place] [address] PCP - General Internal Medicine 10/02/21 Hardik Frye MD [address] [place] [address] Gastroenterology 10/09/21 Carlo Penaloza MD [address] [facility] [phone] [place] [address] General Surgery 01/31/22
--- OUTSIDE RECORDS SUMMARY | 2025-03-10 15:55 | XMS_ITS | Clinical Summary ---
Author Organization [facility] Address [address] [place] [address] Care Team Providers Care Boom Supervisor Name Role Phone Consuelo Villareal MD [...] a day 100 g 5 5 Active OxyCONTIN 15 mg 12 hr [...] mouth daily Floradix - iron supplement Active Cosentyx Pen pen injectorIndicatio ns:Ankylosing spondylitis of multiple sites in spine (HCC) INJECT 150MG (1PEN) UNDER THE SKIN EVERY 4 WEEKS 1 mL 2 08/19/202 5 Active Active Problems Problem Noted Date [...] (09/21/2021): Added automatically from request for surgery [id number] Assessment & Plan (09/24/2021 10:42 AM CDT): [...] Flexeril for pain Chronic obstructive pulmonary disease ([facility]/HCC) 03/01/2015 Assessment & Plan (01/23/2022 10:57 AM CDT): -Home trelegy ellipata and proair prn. Paroxysmal atrial fibrillation ([facility]/HCC) 015 Assessment & Plan (01/25/2022 7:55 AM [...] Plan (01/23/2022 10:57 AM CDT): Hx of IA. S/p CABG in 2006 -Continue home aspirin. [...] Encounters Date Type Department Care Team Description 02/23/2025 7:46 PM CDT - 02/24/2025 1:28 AM CDT Emergency [facility] Emergency Department [address] [place] [address] Willian Brooks MD Generalized abdominal pain (Primary Dx) Discharge Disposition: Discharge to home or self care from Last 3 Months Immunizations Immunization Administration Dates Next Due Influenza, Quadrivalent, Spl it, Preservative Free, Intramuscular 05/08/2021 Surgical History Surgery Date Site/Laterality Comments US GUIDED PARACENTESIS 05/08/2021 N/A Medical History Medical History Date Comments Myocardial infarction (HCC) Myoc ardial infarction Hyperlipidemia Hyperlipidemia Chronic obstructive pulmonary disease COPD Hx Other Medical CAD Hypertension Hypertension 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 Denies 02/23/2025 Sex and Gender Information Value Date Recorded Sex Assigned at Not on file Legal Sex Male 1:47 AM [employer] Gender Identity Not on file Sexual Orientation Not on file Last Filed Vital Signs Vital Sign Reading Time Taken Comments Blood Pressure 113/72 02/24/2025 1:00 AM CDT Pulse 91 02/24/2025 1:00 AM CDT Temperature 36.6 C (97.9 F) 02/23/2025 5:10 PM CDT Respiratory Rate 20 02/24/2025 1:00 AM CDT Oxygen Saturation 91% 02/24/2025 1:00 AM CDT Inhaled Oxygen Concentration - - Weight 89.4 kg (197 lb) 02/23/2025 5:10 PM CDT Height 175.3 cm (5' 9) 02/23/2025 5:10 PM CDT Body Mass Index 29.09 02/23/2025 5:10 PM CDT Plan of Treatment Health Maintenance Due Date Last Done Comments Depression Screening 1959 Prostate Cancer Screening-PSA 1959 DTaP/Tdap/Td Vaccine (1 - Tdap) 1970 Lung Cancer Screening 2009 Zoster Vaccine (1 of 2) 2009 Covid-19 Vaccine (3 - Pfizer risk series) 12/13/2020 11/15/2020, 10/25/2020 Pneumococcal vaccine 65+ (3 of 3 - PCV20 or PCV21) 03/19/2021 03/19/2016, 02/16/2008 Fall Risk Assessment 05/13/2023 05/13/2022 Colon Cancer Screening-Colonoscopy 05/31/2023 05/31/2013 Well Visit 65+ 02/02/2024 Influenza Vaccine (#1) 2024 2, 01/01/2022, 05/08/2021, Additional history exists Colon Cancer Screening-CT Colonography Discontinued 05/31/2013 Colon Cancer Screening-DNA Stool Discontinued 05/31/19 14 Colon Cancer Screening-FIT Discontinued 05/31/2013 Colon Cancer Screening-Sigmoidoscopy Discontinued 05/31/2013 Hepatitis B Screening Completed 05/09/2021 Hepatitis C Screening Completed 05/09/2021 , 02/23/2016, 08/19/2014 Abdominal Aortic Aneurysm (A AA) Screen Completed 02/23/2025, 06/11/2022, 04/12/2022, Additional history exists Goals Goal Patient Goal Type Associated Problems [...] as needed Medical Devices Implanted Type Area Silk Presser Device Identifier Shelf Expiration Date Model / Serial / Lot [email or web address] Trufill Glue 1gm ca [id number] - [id number] Implanted:Qty: 1 on 05/15/2022 at [facility] [employer] 02/26/2024 [id number] / / [id number] Bag of Ice Angio-Seal Vip 6fr Closere Device [id number] - [id number] Implanted:Qty: 1 on 05/15/2022 at [facility] [employer] 02/25/2023 [id number] / / [id number] Procedures Procedure Name Priority Date/Time Associated Diagnosis Comments US RUQ ED Urgent/IP Urgent 02/23/2025 11:18 PM CDT TROPONIN I HIGH-SENSITIVITY 4-HOUR Timed 02/23/2025 10:38 PM CDT URINALYSIS AND REFLEX TO MICROSCOPIC STAT 02/23/2025 9:36 PM CDT CTA CHEST ABDOMEN PELVIS ED 02/23/2025 9:23 PM CDT LACTATE STAT 02/23/2025 8:25 PM CDT TROPONIN I HIGH-SENSITIVITY 2-HOUR Timed 02/23/2025 8:25 PM CDT EGFR STAT 02/23/2025 6:38 PM CDT DIFFERENTIAL AUTO STAT 02/23/2025 6:3 8 PM CDT TROPONIN I HIGH-SENSITIVITY SERIES (BASELINE, 2HR, 4HR, 6HR) STAT 02/23/2025 6:38 PM CDT LIPASE STAT 02/23/2025 6:38 PM CDT COMPREHENSIVE METABOLIC PANEL STAT 02/23/2025 6:38 PM CDT CBC WITH AUTO DIFFERENTIAL STAT 02/23/2025 6:38 PM CDT HEPATITIS C ANTIBODY Routine 05/09/2021 3:08 PM [employer] COLONOSCOPY REPORT 05/31/2013 from Last 3 Months or Most Recently Relevant to Health Maintenance Results * US RUQ (02/23/2025 11:18 PM CDT) Anatomical Region Laterality Modality Abdomen N/A Ultrasound 02/23/2025 11:2 8 PM CDT Impressions 02/24/2025 6:11 AM CDT 1. No intrahepatic or extrahepatic biliary ductal dilatation. 2. A few small gallstones, better seen on prior CT.. 3. Cirrhosis. Dictated by: Paz Henry M.D. The radiology attending physician has personally reviewed this study, and had reviewed and/or edited this written report and agrees with it. Electronically signed by: Duncan Smith M.D. Narrative 02/24/2025 6:11 AM CDT EXAMINATION: LIVER SONOGRAM HISTORY: History of cirrhosis, tenderness to palpation in the right abdomen, elevated bilirubin COMPARISON: Same day CT FINDINGS: Liver: The liver is normal in size. The left hemiliver and the caudate are difficult to visualize The echotexture is coarse. The echogenicity is normal. There is surface nodularity. No focal solid lesions are visualized. Gallbladder: Visualization of the gallbladder is limited. The gallbladder is enlarged. A few small gallstones were better seen on CT but are visualized on image 230 There is no gallbladder wall thickening. Bile Duct: There is no intrahepatic bile duct dilatation. The proximal aspect of the common bile duct measures 4 mm.. Procedure Note Duncan Smith MD - 02/24/2025 EXAMINATION: LIVER SONOGRAM HISTORY: History of cirrhosis, tenderness to palpation in the right abdomen, elevated bilirubin COMPARISON: Same day CT FINDINGS: Liver: The liver is normal in size. The left hemiliver and the caudate are difficult to visualize The echotexture is coarse. The echogenicity is normal. There is surface nodularity. No focal solid lesions are visualized. Gallbladder: Visualization of the gallbladder is limited. The gallbladder is enlarged. A few small gallstones were better seen on CT but are visualized on image 230 There is no gallbladder wall thickening. Bile Duct: There is no intrahepatic bile duct dilatation. The proximal aspect of the common bile duct measures 4 mm.. IMPRESSION: 1. No intrahepatic or extrahepatic biliary ductal dilatation. 2. A few small gallstones, better seen on prior CT.. 3. Cirrhosis. Dictated by: Paz Henry M.D. The radiology attending physician has personally reviewed this study, and had reviewed and/or edited this written report and agrees with it. Electronically signed by: Duncan Smith M.D. [facility] Adam WIGGINS [facility] US PROCEDURES Final Result * Troponin I high-sensitivity 4-hour (02/23/2025 10:38 PM CDT) Trop I hs <4 <=35 ng/L Comment: Interpretive Data For further hscTnI resources including the diagnostic algorithm and an aid in interpretation, copy and paste this link: [email or web address]/[email or web address] Current Interpretive Data last revised 2019. Trop I hs delta 0 ng/L [facility] Trop I hs interp Insignificant [facility] Blood 02/23/2025 10:3 8 PM CDT 02/23/2025 11:01 PM CDT us Peace Bruner MD LAB BLOOD ORDERABLES Final Result [facility] Department [place] [address] * (ABNORMAL) Urinalysis reflex to microscopic (02/23/2025 9:36 PM CDT) Color, ur Yellow Yellow Clarity, ur Cloudy(A) Clear [facility] Specific gravity, ur 1.031(H) 1.003 - 1.030 [facility] pH, urine 7.0 [facility] Comment: Interpretive Data U rine pH is affected by diet, medications, systemic acid-base disturbances, and renal tubular function. pH may affect urinary stone formation. For example, urine pH below 6.0 may help reduce the tendency for calcium phosphate stones and pH greater than 6.0 may reduce the tendency for uric acid stone formation. Source: [facility] THERAVECTYS Current Interpretive Data was last revised on 2017 Protein, ur ql Trace Negative [facility] Glucose, ur ql Negative Negative [facility] Ketones, ur Trace Negative [facility] Bilirubin, ur Negative Negative [facility] Blood, ur Negative Negative [facility] Urobilinogen, ur 4.0(A) <2.0 mg/dL [facility] Nitrite, ur Negative Negative [facility] Leukocyte esterase, ur Negative Negative [facility] UA reflex comment Reflex conditions for microscopic UA not met. [facility] Urine 02/23/2025 9:36 PM CDT 02/23/2025 9:41 PM CDT us Willian Brooks MD LAB URINE ORD ERABLES Final Result [facility] Department [place] [address] * CTA Chest Abdomen Pelvis (02/23/2025 9:23 PM CDT) Anatomical Region Laterality Modality Body N/A Computed Tomogra phy 02/23/2025 9:44 PM CDT Impressions 02/24/2025 7:00 AM CDT 1. 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 No evidence of bowel ischemia. 2. No acute findings in the chest. 3. Recommend follow up of the Incidental lung nodule Additional Imaging In [address] Dictated by: Dominick Dasilva M.D. The radiology attending physician has personally reviewed this study, and had reviewed and/or edited this written report and agrees with it. Electronically signed by: Yaw Brasher M.D. Narrative 02/24/2025 7:00 AM CDT EXAMINATION: CT ANGIOGRAPHY OF THE CHEST, ABDOMEN AND PELVIS WITH AND WITHOUT CONTRAST HISTORY: Abdominal pain in the setting of known chronic superior mesenteric artery dissection TECHNIQUE: Computed tomographic images of the chest, abdomen and pelvis were acquired without and with intravenous contrast using an angiographic protocol optimized for aortic dissection (aorta). The contrast enhanced transaxial images were obtained following the intravenous administration of 93 ml of nonionic contrast. Multiplanar reformatted images and three-dimensional images of the aorta and associated vasculature were obtained on the 3-D workstation and sent to the PACS archival system. COMPARISON: CT 10/07/2022 FINDINGS: Chest: Postsurgical changes of median sternotomy and coronary artery bypass grafting. Sternotomy wires are intact and aligned. Heart size is normal. Multivessel hamilton coronary artery calcification. Thoracic aorta and main pulmonary artery are normal caliber. No pathologically enlarged thoracic lymphadenopathy. Lungs are clear. No pleural effusion or pneumothorax. There is a 5 mm left upper lobe pulmonary nodule on series 6 image 31, new from 2022. Abdomen/Pelvis: Liver, spleen, pancreas, adrenal glands appear normal. No biliary ductal dilatation. Gallbladder is mildly dilated without evidence of acute cholecystitis. Kidneys are mildly atrophic but enhance symmetrically without hydronephrosis. Subcentimeter hypoattenuating left renal lesions too small to characterize, likely cysts. There is a partial urachal remnant. Urinary bladder appears otherwise normal. The colon and small bowel are normal in course and caliber. Stomach is distended with gastric contents. No evidence of gastric outlet obstruction. No evidence of bowel obstruction. No free intraperitoneal gas or fluid. Appendix appears normal. Small fat-containing periumbilical hernia. Abdominal aorta is normal in course and caliber with moderate calcific atherosclerotic disease. There is an unchanged dissection flap in the superior mesenteric artery, which is aneurysmal but unchanged measuring up to 14 mm in anteroposterior dimension. There is unchanged occlusive thrombus of the distal superior mesenteric artery with patent distal branches supplying the bowel. No evidence of bowel ischemia. No pathologically enlarged abdominal or pelvic lymph nodes. No suspicious osseous lesions. Procedure Note Yaw Brasher MD - 02/24/2025 EXAMINATION: CT ANGIOGRAPHY OF THE CHEST, ABDOMEN AND PELVIS WITH AND WITHOUT CONTRAST HISTORY: Abdominal pain in the setting of known chronic superior mesenteric artery dissection TECHNIQUE: Computed tomographic images of the chest, abdomen and pelvis were acquired without and with intravenous contrast using an angiographic protocol optimized for aortic dissection (aorta). The contrast enhanced transaxial images were obtained following the intravenous administration of 93 ml of nonionic contrast. Multiplanar reformatted images and three-dimensional images of the aorta and associated vasculature were obtained on the 3-D workstation and sent to the PACS archival system. COMPARISON: CT 10/07/2022 FINDINGS: Chest: Postsurgical changes of median sternotomy and coronary artery bypass grafting. Sternotomy wires are intact and aligned. Heart size is normal. Multivessel hamilton coronary artery calcification. Thoracic aorta and main pulmonary artery are normal caliber. No pathologically enlarged thoracic lymphadenopathy. Lungs are clear. No pleural effusion or pneumothorax. There is a 5 mm left upper lobe pulmonary nodule on series 6 image 31, new from 2022. Abdomen/Pelvis: Liver, spleen, pancreas, adrenal glands appear normal. No biliary ductal dilatation. Gallbladder is mildly dilated without evidence of acute cholecystitis. Kidneys are mildly atrophic but enhance symmetrically without hydronephrosis. Subcentimeter hypoattenuating left renal lesions too small to characterize, likely cysts. There is a partial urachal remnant. Urinary bladder appears otherwise normal. The colon and small bowel are normal in course and caliber. Stomach is distended with gastric contents. No evidence of gastric outlet obstruction. No evidence of bowel obstruction. No free intraperitoneal gas or fluid. Appendix appears normal. Small fat-containing periumbilical hernia. Abdominal aorta is normal in course and caliber with moderate calcific atherosclerotic disease. There is an unchanged dissection flap in the superior mesenteric artery, which is aneurysmal but unchanged measuring up to 14 mm in anteroposterior dimension. There is unchanged occlusive thrombus of the distal superior mesenteric artery with patent distal branches supplying the bowel. No evidence of bowel ischemia. No pathologically enlarged abdominal or pelvic lymph nodes. No suspicious osseous lesions. IMPRESSION: 1. 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 No evidence of bowel ischemia. 2. No acute findings in the chest. 3. Recommend follow up of the Incidental lung nodule Additional Imaging In [address] Dictated by: Dominick Dasilva M.D. The radiology attending physician has personally reviewed this study, and had reviewed and/or edited this written report and agrees with it. Electronically signed by: Yaw Brasher M.D. us José Antonio Medina MD IMG CT PROCEDURES Final Result * Troponin I high-sensitivity 2-hour (02/23/2025 8:25 PM CDT) Trop I hs 4 <=35 ng/L Comment: Interpretive Data For further hscTnI resources including the diagnostic algorithm and an aid in interpretation, copy and paste this link: [email or web address]/[email or web address] Current Interpretive Data last revised 2019. Trop I hs delta 0 ng/L [facility] TOLLIVER Trop I hs interp Insignificant [facility] George Blood 02/23/2025 8:25 PM CDT 02/23/2025 8:51 PM CDT us Peace Bruner MD LAB BLOOD ORDERABLES Final Result [facility] Department [place] [address] * Lactate (02/23/2025 8:25 PM CDT) [facility] Lactate 1.1 0.7 - 2.0 mmol/L Blood 02/23/2025 8:25 PM CDT 02/23/2025 8:47 PM CDT José Antonio Medina MD LAB BLOOD ORDERABLES Final Resul t Performing Organization Address [facility] Co de Phone Number HAILEY [facility] [place] [place] [address] * Troponin I high-sensitivity series (baseline, 2hr, 4hr, 6hr) (02/23/2025 6:38 PM CDT) [facility] Trop I hs 4 <=35 ng/L Comment: Interpretive Data For further hscTnI resources including the diagnostic algorithm and an aid in interpretation, copy and paste this link: [email or web address]/[email or web address] Current Interpretive Data last revised 2019. Blood 02/23/2025 6:38 PM CDT 02/23/2025 6:57 PM CDT us Willian Brooks MD LAB BLOOD ORD ERABLES Final Result Performing Organization Address City/[facility] Co de Phone Number [facility] [place] [address] * eGFR (02/23/2025 6:38 PM CDT) [facility] eGFR 69 >=60 mL/min/1. 73 m2 Comment: Interpretive Data Reference Interval Normal >/= 90 mL/min/1.73m2 Mildly decreased* 60 - 89 mL/min/1.73m2 Mildly to moderately decreased 45 - 59 mL/min/1.73m2 Moderately to severely decreased 30 - 44 mL/min/1.73m2 Severely decreased 15 - 29 mL/min/1.73m2 Kidney Failure < 15 mL/min/1.73m2 *Relative to young adult level Estimated glomerular filtration rate is determined by the 2020 CKD-EPI equation recommended by the National Kidney Foundation (A Unifying Approach to GFR Estimation: Recommendations of the NKF-ASK Task Force on Reassessing the Inclusion of Race in Diagnosing Kidney Disease, JASN 2020). The CKD-EPI equation should not be used for patients with unstable renal function and has not been validated in children and those over 70. Current interpretive data was last reviewed 2021. Blood 02/23/2025 6:38 PM CDT 02/23/2025 6:57 PM CDT us Willian Brooks MD LAB BLOOD ORD ERABLES Final Result [facility] Department [place] [address] * (ABNORMAL) Differential, auto (02/23/2025 6:38 PM CDT) Pathologist [facility] Neutrophil abs 11.80(H) 1.50 - 6.50 K/cumm Imm gran abs 0.06 0.00 - 0.10 K/cumm [facility] Lymphocyte abs 1.24 0.80 - 3.30 K/cumm [facility] Monocyte abs 0.86(H) 0.20 - 0.80 K/cumm [facility] Eosinophil abs 0.08 0.00 - 0.50 K/cumm [facility] Basophil abs 0.05 0.00 - 0.10 K/cumm [facility] Neutrophil pct 83.7 % [facility] Comment: Interpretive Data Percent cell count reference ranges are not reported, since discordance with absolute values may lead to misinterpretation of CBC data. Current Interpretive Data was last revised on 2017. Imm gran pct 0.4 % [facility] Comment: Interpretive Data Percent cell count reference ranges are not reported, since discordance with absolute values may lead to misinterpretation of CBC data. Current Interpretive Data was last revised on 2017. Lymphocyte pct 8.8 % [facility] Comment: Interpretive Data Percent cell count reference ranges are not reported, since discordance with absolute values may lead to misinterpretation of CBC data. Current Interpretive Data was last revised on 2017. Monocyte pct 6.1 % [facility] Comment: Interpretive Data Percent cell count reference ranges are not reported, since discordance with absolute values may lead to misinterpretation of CBC data. Current Interpretive Data was last revised on 2017. Eosinophil pct 0.6 % [facility] Comment: Interpretive Data Percent cell count reference ranges are not reported, since discordance with absolute values may lead to misinterpretation of CBC data. Current Interpretive Data was last revised on 2017. Basophil pct 0.4 % [facility] Comment: Interpretive Data Percent cell count reference ranges are not reported, since discordance with absolute values may lead to misinterpretation of CBC data. Current Interpretive Data was last revised on 2017. Blood 02/23/2025 6:38 PM CDT 02/23/2025 6:57 PM CDT Willian Brooks MD LAB BLOOD ORD ERABLES Final Result [facility] Department [place] [address] * (ABNORMAL) CBC with auto differential (02/23/2025 6:38 PM CDT) WBC 14.09(H) 3.80 - 9.90 K/cumm Hgb 15.2 13.0 - 17.5 g/dL [facility] Hct 44.8 38.9 - 50.3 % [facility] Plt 182 150 - 400 K/cumm [facility] MPV 9.5 9.1 - 12.3 fL [facility] RBC 4.88 4.30 - 5.80 M/cumm [facility] MCV 91.8 81.3 - 96.4 fL [facility] MCH 31.1 27.1 - 33.3 pg [facility] MCHC 33.9 32.3 - 35.7 g/dL [facility] RDW CV 13.5 11.1 - 14.9 % [facility] RDW SD 46.1 35.7 - 48.1 fL [facility] NRBC abs 0.00 0.00 - 0.01 K/cumm [facility] Blood Venous blood specimen / Unknown 02/23/2025 6:38 PM CDT 02/23/2025 6:57 PM CDT Willian Brooks MD LAB BLOOD ORD ERABLES Final Result Performing Organization Address City/[facility]/ZIP Co de Phone Number [facility] Department [place] [address] * Lipase (02/23/2025 6:38 PM CDT) [facility] Lipase 71 10 - 99 Units/L Blood Venous blood specimen / Unknown 02/23/2025 6:38 PM CDT 02/23/2025 6:57 PM CDT Willian Brooks MD LAB BLOOD ORD ERABLES Final Result Performing Organization Address City/[facility] de Phone Number [facility] [place] [address] * (ABNORMAL) Comprehensive metabolic panel (02/23/2025 6:38 PM CDT) [facility] Sodium 138 135 - 145 mmol/L Potassium, pl 3.7 3.3 - 4.9 mmol/L [facility] Chloride 100 97 - 110 mmol/L [facility] CO2 23 22 - 32 mmol/L [facility] Anion gap 15 2 - 15 mmol/L [facility] BUN 12 6 - 25 mg/dL [facility] Creatinine 1.17 0.80 - 1.30 mg/dL [facility] Glucose 159 70 - 199 mg/dL [facility] Comment: Interpretive Data Fasting glucose >/= 126 mg/dl is diagnostic for diabetes. Fasting is defined as no caloric intake for at least 8 hours. Fasting glucose between 100 mg/dl to 125 mg/dl is diagnostic of prediabetes. In a patient with classic symptoms of hyperglycemia or hyperglycemic crisis, a random glucose >/= 200 mg/dl is diagnostic for diabetes. In the absence of unequivocal hyperglycemia, results should be confirmed by repeat testing. The classification and Diagnosis of Diabetes Diabetes Care 2021; 46: S19-S40. Current interpretive data was last revised 2022. Calcium 9.8 8.5 - 10.3 mg/dL [facility] Bilirubin, total 1.6(H) 0.1 - 1.2 mg/dL [facility] Protein, pl 8.5 6.5 - 8.5 g/dL [facility] Albumin 4.3 3.5 - 5.0 g/dL [facility] Alk phos 111 40 - 130 Units/L [facility] ALT 16 7 - 55 Units/L [facility] AST 48 10 - 50 Units/L [facility] Blood 02/23/2025 6:38 PM CDT 02/23/2025 6:57 PM CDT us Willian Brooks MD LAB BLOOD ORD ERABLES Final Result [facility] [place] [address] * Hepatitis C antibody (05/09/2021 3:08 PM [employer]) Pathologist [facility] Hep C Ab Nonreactive Nonreactive [facility] Comment:Antibodies to HCV no t detected. Does NOT exclude the possibility of recent exposure to HCV. Blood 05/09/2021 3:08 PM STRIPPER PRINTED CIRCUIT BOARDS 05/09/2021 3:38 PM [employer]IP[employer] BO[employer]DS Pratima Morales MD LAB MICROBIOLOGY - GENERAL ORD ERABLES Edited Result - Final [facility] [place] [address] * COLONOSCOPY REPORT (05/31/2013) Anatomical Region Laterality Modality Other Narrative 05/31/2013 Ordered by an unspecified provider. us Historical Provider GI PROCEDURE ORDERABLES F inal Result from Last 3 Months or Most Recently Relevant to Health Maintenance Insurance MEDICARE IDPA MEDICARE IDPA MANAGED MEDICARE GENERIC RISK OTHER [facility] [place] [facility] [place]ARE ID[place] Advance Directives For more information, please contact: [phone] * Full Code (Latest Code Status on File) Date Activated Date Inactivated Comments 01/20/2022 6:40 AM 01/25/2022 2:33 PM * Full Code Date Activated Date Inactivated Comments 09/22/2021 4:08 AM 09/24/2021 6:55 PM * Full Code Date Activated Date Inactivated Comments 05/08/2021 5:39 PM 05/10/2021 9:30 PM Care Teams Boom Supervisor Relationship Specialty Start Date End Date Consuelo Villareal MD [address] [place] [address] PCP - General 05/07/21 Edelmira Balderas MD [address] [place] [address] Consulting Physician Vascular Surgery 01/25/22
--- OUTSIDE RECORDS SUMMARY | 2025-03-10 15:55 | XMS_ITS | Clinical Summary ---
Author Organization [facility] Address [facility] [place] [address] Care Team Providers Care Estimate Clerk Name Role Phone New Referring, Provider Primary [...] Comments Blood Pressure 122/79 05/26/2019 12:20 PM HARMONIC ANALYST Pulse 84 05/26/2019 12:20 PM HARMONIC ANALYST Temperature 36.6 C (97.8 F) 05/26/2019 12:20 PM HARMONIC ANALYST Respiratory Rate 18 05/26/2019 12:20 PM HARMONIC ANALYST Oxygen Saturation 98% 05/26/2019 12:20 PM HARMONIC ANALYST Inhaled Oxygen Concentration - - Weight 92.1 kg (203 lb) 05/24/2019 2:21 PM HARMONIC ANALYST Height 174 cm (5' 8.5) 05/24/2019 2:21 PM HARMONIC ANALYST Body Mass Index 30.41 05/24/2019 2:21 PM HARMONIC ANALYST Plan of Treatment Health Maintenance Due Date Last Done Comments Colorectal Cancer Screening Colonoscopy (10 Years) 1959 Hepatitis C 1977 DTaP, Tdap and Td Vaccines ( 1 - Tdap) 1978 Pneumococcal Vaccine: 50+ Ye ars (1 of 2 - PCV) 1978 Zoster Vaccines (1 of 2) 2009 Annual Medicare Wellness Visit 02/02/2024 COVID-19 Vaccine (1 - 2024-2 6 season) 2024 Influenza Adult (#1) 2025 RSV Immunization or 60+ Years (1 - 1-dose 75+ series) 2034 Hepatitis A Vaccines Aged Out No long er eligible based on patient's age to complete this topic Meningococcal B Vaccine Aged Out No l [...] 12:18 PM 05/26/2019 3:42 PM Care Teams Estimate Clerk Relationship Specialty Start Date End Date New Referring, Provider PCP - General UNKNOWN PHYSICIAN SPECIALTY 05/24/19
--- OUTSIDE RECORDS SUMMARY | 2025-03-10 15:55 | XMS_ITS | Encounter Summary ---
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
--- OUTSIDE RECORDS SUMMARY | 2025-03-10 15:55 | XMS_ITS | Encounter Summary ---
Author Organization [facility] Address [address] [place] [address] Care Team Providers Care Store Facility Technician Name Role Phone Consuelo Villareal MD Primary Care Provider [phone] Hardik Frye MD Unavailable [phone] Carlo Penaloza MD Unavailable [phone] Encounter Details Date Type Department Care Team (Late Contact Info) Description 01/28/2025 Results Follow-Up [facility] - [address] [facility], [place] [phone] Clementine Veras, METERMAN-SOFTWARE TEAM LEADER [address] [facility] [address] [place] OF GASTROENTEROLOGY [place], [place] [id number] Social History Tobacco Use Types Packs/Day Years [...] Upcoming Encounters Date Type Department Care Team ([facility] Contact Info) Description 07/25/2025 2:00 PM CDT Appointment [facility] [address] [place] [phone] Clementine Veras, METERMAN-SOFTWARE TEAM LEADER [address] [facility] [address] [place] [address] 07/25/2025 3:00 PM CDT Office Visit [facility] - GI [address] [facility] [place] [id number] VerasClementine, METERMAN-SOFTWARE TEAM LEADER [address] [facility] [address] [place] [address] documented as of this encounter Goals Goal [...] Maintain an unobstructed path to the bathroom documented as of this encounter Visit Diagnoses Not on filedocumented in this encounter Care Teams Store Facility Technician Relationship Specialty Start Date End Date Consuelo Villareal MD [address] [place] [phone] PCP - General Internal Medicine 10/02/21 Hardik Frye MD [address] [place] [address] Gastroenterology 10/09/21 Carlo Penaloza MD [id number] [place] [address] General Surgery 01/31/22 documented as of this encounter
--- OUTSIDE RECORDS SUMMARY | 2025-03-10 15:55 | XMS_ITS | Encounter Summary ---
Author Organization [facility] Address [address] [place] [address] Phone Care Team Providers Care Social Media Executive Name Role Phone Johnie Ernandez MD Primary Care Provide r Raymond Prescott MD Primary Care Provider Consuelo Villareal MD Primary Care Provider [phone] Edelmira Balderas MD Unavailable Encounter Details Date Type Department Care Team (Late st Contact Info) Description 01/21/2019 Orders Only [facility] Scanning, Provider Social History Tobacco Use Types Packs/Day Years Used Date Smoking Tobacco: Every Day Cigarettes 0.1 51 Smokeless Tobacco: Never Alcohol Use Standard Drinks/Week Comments Yes 0 (1 standard drink = 0.6 oz pur e alcohol) Sex and Gender Information Value Date Recorded Sex Assigned at Not on file 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
--- OUTSIDE RECORDS SUMMARY | 2025-03-10 15:55 | XMS_ITS | Encounter Summary ---
Author Organization [facility] Address [address] [place] [address] Phone Care Team Providers Care Industrial Boilermaker Name Role Phone Raymond Prescott MD Primary Care Provider Consuelo Villareal MD Primary Care Provider Edelmira Balderas MD Unavailable Encounter Details Date Type Department Care Team (Late st Contact Info) Description 04/11/2021 Orders Only [facility] Scanning, Provider Social History Tobacco Use Types Packs/Day Years Used Date Smoking Tobacco: Every Day Cigarettes 0.1 51 Smokeless Tobacco: Never Alcohol Use Standard Drinks/Week Comments Yes 0 (1 standard drink = 0.6 oz pur e alcohol) Sex and Gender Information Value Date Recorded Sex Assigned at Not on file 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
--- OUTSIDE RECORDS SUMMARY | 2025-03-10 15:55 | XMS_ITS | Encounter Summary ---
Author Organization [facility] Address [address] [place] [address] Care Team Providers Care Poultice Machine Operator Name Role Phone New Referring, Provider Primary Care Provider Un available Encounter Details Date Type Department Care Team (Late st Contact Info) Description 10/03/2018 Abstract [facility] CONVERSION [address] [place] [address] , Generic Conversion, Social History Tobacco Use [...] on filedocumented in this encounter Care Teams Poultice Machine Operator Relationship Specialty Start Date End Date New Referring, Provider PCP - General UNKNOWN PHYSICIAN SPECIALTY 05/24/19 documented as of this encounter
--- OUTSIDE RECORDS SUMMARY | 2025-03-10 15:55 | XMS_ITS | Encounter Summary ---
Author Organization [facility] Address [address] [place] [address] Phone Care Team Providers Care International Banker Name Role Phone Raymond Prescott MD Primary Care Provider Consuelo Villareal MD Primary Care Provider [phone] Edelmira Balderas MD Unavailable Encounter Details Date Type Department Care Team (Late st Contact Info) Description 2021 Orders Only [facility] Scanning, Provider Social History Tobacco Use Types Packs/Day Years Used Date Smoking Tobacco: Every Day Cigarettes 0.1 51 Smokeless Tobacco: Never Alcohol Use Standard Drinks/Week Comments Yes 0 (1 standard drink = 0.6 oz pur e alcohol) Sex and Gender Information Value Date Recorded Sex Assigned at Not on file Legal 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
== END 2025-03-10 15:52 | disposition home or self-care (01) ==
LOC: CHSIMG 15:53
PROVIDERS: PCP Internal Medicine; Visit Provider Physician Assistant
DX: Z12.2 Encounter for screening for malignant neoplasm of respiratory organs (principal); Z87.891 Personal history of nicotine dependence; R91.8 Other nonspecific abnormal finding of lung field
CPT/HCPCS: 71271

== ENCOUNTER 2025-04-07 14:55 | Outpatient (CLI) | payer MEDICARE, MEDICAID, SELFPAY | END 2025-04-07 14:56 | disposition home or self-care (01) | PROVIDERS: PCP Internal Medicine | DX: M45.0 Ankylosing spondylitis of multiple sites in spine (principal); Z79.899 Other long term (current) drug therapy | CPT/HCPCS: 36415; 86480 ==